=== PATIENT | female | born 1940 | race Caucasian/White ===

== ENCOUNTER 2023-11-07 12:00 | Emergency (ER) | payer SELFPAY ==
[2023-11-07 12:06] VITALS: BP 123/81
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
[2023-11-07] MEDS: ADACEL 0.5 ML IM (13:39)
[2023-11-07 14:00] VITALS: BP 129/76
== END 2023-11-07 14:10 | disposition home or self-care (01) ==
LOC: EMR 12:00
PROVIDERS: EMERGENCY PHYSICIAN Emergency Medicine; FAMILY PHYSICIAN Family Medicine
DX: S80.212A Abrasion, left knee, initial encounter (principal); S60.812A Abrasion of left wrist, initial encounter; V43.52XA Car driver injured in collision with other type car in traffic accident, initial encounter; I48.91 Unspecified atrial fibrillation; Z87.891 Personal history of nicotine dependence; Z79.01 Long term (current) use of anticoagulants; Z23 Encounter for immunization
CPT/HCPCS: 99285; 90471; 70450; 73110; 73564; 90715

== ENCOUNTER 2023-11-09 09:12 | Observation (INO) | payer OTHER, SELFPAY ==
[2023-11-09] VITALS (17 sets, daily range): BP systolic 110–147; BP diastolic 45–91; BMI 32.7; BMI 31.8
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
[2023-11-09] MEDS: DILAUDID 0.5 MG IV ×3 (07:50→20:15)
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
[2023-11-09] MEDS: XOPENEX 0.63 MG INHALANT SOLUTION INH (15:23)
[2023-11-09] MEDS: CARDIZEM CD 180 MG PO (16:04)
[2023-11-09] MEDS: DELTASONE 10 MG PO (16:04)
[2023-11-09] MEDS: LASIX 40 MG PO (16:04)
[2023-11-09] MEDS: FARXIGA 10 MG PO (16:05)
[2023-11-09] MEDS: PROZAC 20 MG PO (16:05)
[2023-11-09] MEDS: XANAX 0.5 MG PO ×2 (16:05→20:11)
[2023-11-09] MEDS: KLOR-CON 20 MEQ PO (16:05)
[2023-11-09] MEDS: XOPENEX 0.63 MG INHALANT SOLUTION 0.630000000000000004 MG INH (16:20)
[2023-11-09] MEDS: BETAPACE 40 MG PO (20:11)
[2023-11-09] MEDS: ELIQUIS 5 MG PO (20:11)
[2023-11-09] MEDS: SYMBICORT 160/4.5 MCG INHALER 2 PUFF INH (20:14)
[2023-11-10] MEDS: DILAUDID 0.5 MG IV ×2 (00:42→06:34)
[2023-11-10 03:53] VITALS: BP 120/65
[2023-11-10 05:06] VITALS: BMI 31.3
--- NOTE | 2023-11-10 07:22 | W.PN.UPDATE ---
Update Note
Progress Note Update
MRI left hip from November 09, 2023 fortunately was able to rule out occult fracture. There was edema within the capsule of the left hip to suggest sprain and inflammation noted within the abductor tendon consistent with tendinitis. Left hip exam
similar to yesterday but less pain. She may progress to weightbearing as tolerated and work with physical therapy. Conservative treatments for pain. Increase activities as tolerated. Follow-up orthopedics 2 weeks to check her progress. We will
sign off for now.
[2023-11-10 07:30] VITALS: BP 99/60
--- NOTE | 2023-11-10 08:19 | W.PN.HOSP.TC ---
Today's Communication/Plan
-
Continue current management. Discharge planning in progress today
Assessment / Plan
Assessment / Plan
Physical exam:
General: Well Developed, Well Nourished and No Apparent Distress
HEENT: Normocephalic, Atraumatic and Moist Mucous Membranes
Respiratory: Clear to Auscultation; Negative Wheezes, Rales or Rhonchi
Cardiac: Regular Rhythm and S1/S2
GI: Soft, Nontender and Nondistended
Musculoskeletal: Tenderness much better in the left hip. No Clubbing, No Cyanosis and No Edema
Neuro: Awake, Alert and Oriented
Psych: Calm
A/P:
Impression:
Left hip pain- left hip capsular sprain with surrounding soft tissue edema.
Left knee contusion
Ambulatory dysfunction
Condition present prior to admission:
Hypertension
Hyperlipidemia
Chronic diastolic CHF
COPD
DIEGO
CKD
History of PE in the past
PLAN:
Continue pain control
Bowel regimen while on narcotics
MRI shows left hip capsular sprain
Reviewed x-rays and CT scan of the pelvis
Appreciated orthopedic consult
PT OT
Eliquis DVT prophylaxis
CODE STATUS full code
Anticipated Discharge: Today
Subjective/Interval History
-
Date of Service: November 10, 2023
Patient left hip pain is better and she wants to go home today. I witnessed her ambulating on the hallway with assistance physical therapy today
Objective Data
-
Labs:
Laboratory Results
11/10/23
07:41
WBC Pending
Hgb Pending
Hct Pending
Plt Count Pending
Sodium Pending
Potassium Pending
Chloride Pending
Carbon Dioxide Pending
BUN Pending
Creatinine Pending
Glucose Pending
Calcium Pending
Vital Signs:
Vital Signs
Temp Pulse Resp BP Pulse Ox
97.8 F 58 18 99/60 96
11/10/23 07:30 11/10/23 07:30 11/10/23 07:30 11/10/23 07:30 11/10/23 07:30
I&O
11/09/23 11/10/23 11/11/23
06:59 06:59 06:59
Intake Total 600 / 600
Output Total 450 / 450
Balance 150 / 150
[2023-11-10] MEDS: SYMBICORT 160/4.5 MCG INHALER 2 PUFF INH (08:30)
[2023-11-10] MEDS: XOPENEX 0.63 MG INHALANT SOLUTION 0.630000000000000004 MG INH (08:30)
[2023-11-10 08:41] LABS: Hematocrit 34.9 % (37.0-47.0); Hemoglobin 10.8 g/dL (12.0-16.0); Mean Corp Hgb Conc. 30.9 g/dL (33.0-37.0); Mean Corpuscular Hgb 26.7 pg (27.0-31.0); Mean Corpuscular Volume 86.4 fL (81.0-99.0); Mean Platelet Volume 11.8 fL (7.4-10.4); Platelet Count 256 10^3/uL (130-400); Red Blood Cell Count 4.04 10^6/uL (4.20-5.40); White Blood Cell Count 7.8 10^3/uL (4.8-10.8)
[2023-11-10 09:24] LABS: Blood Urea Nitrogen 19 mg/dl (7-17); Calcium 8.6 mg/dl (8.4-10.2); Carbon Dioxide 24 mmol/L (22-30); Chloride 104 mmol/L (98-107); Estimated Creatinine Clearance 55 ml/min; Glucose 77 mg/dl (70-99); Potassium 4.6 mmol/L (3.5-5.1); Sodium 133 mmol/L (135-145); eGFR > 60.00
[2023-11-10 09:34] VITALS: BP 100/72
[2023-11-10] MEDS: FARXIGA PO (09:51)
[2023-11-10] MEDS: LASIX PO (09:51)
[2023-11-10] MEDS: BETAPACE PO (09:51)
[2023-11-10] MEDS: CARDIZEM CD PO (09:51)
[2023-11-10] MEDS: PROTONIX 40 MG PO (09:53)
[2023-11-10] MEDS: XANAX 0.5 MG PO (09:53)
[2023-11-10] MEDS: PROZAC 20 MG PO (09:53)
[2023-11-10] MEDS: ELIQUIS 5 MG PO (09:53)
[2023-11-10] MEDS: KLOR-CON 20 MEQ PO (09:53)
[2023-11-10] MEDS: DELTASONE 10 MG PO (09:53)
[2023-11-10 11:34] VITALS: BP 104/65; PULSE 64; O2SAT 94
[2023-11-10 11:45] VITALS: BP 104/65; PULSE 62; O2SAT 94
[2023-11-10] MEDS: BETAPACE 40 MG PO (11:48)
[2023-11-10] MEDS: CARDIZEM CD 180 MG PO (11:48)
[2023-11-10] MEDS: LASIX 40 MG PO (11:48)
[2023-11-10] MEDS: FARXIGA 10 MG PO (11:48)
[2023-11-10] MEDS: NORCO 5/325 1 TABLET PO (11:50)
--- NOTE | 2023-11-10 12:40 | CM ---
Addendum entered by Zahida Freedman 11/10/23 15:40:
CM notified that patient has been switched to observation status, HERBERT reviewed and signed with patient. Patient for discharge today, calling daughter to provide transportation home.
Plan; [facility] with [facility]
Original Note:
Patient seen bedside, initial assessment completed. Patient reports she lives independently at [facility] on the third floor, with an elevator, no steps to enter. Patient reports she just ended services with [facility], per PT, recommending HH, will send
referral to [facility] per patients request. Patient reports she has been to [facility] in past. Patient reports she has a cane, walker, and scooter at home. Patient reports PCP Dr. Matthias Montgomery at [facility], pharmacy is [facility] in
[place]. Patient reports she is being discharged today at 3:00 p.m. and her daughter will be picking her up. CM reviewed IMM with patient, signed, placed in patients chart. CM will continue to follow for discharge planning needs.
Plan; home with [facility].
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
[2023-11-10 15:18] VITALS: BP 129/62
--- NOTE | 2023-11-10 15:32 | VNURNOTE ---
Home Health Liaison spoke with patient at 1530 to discuss [facility] nurse/therapy, visits, schedule and homebound status. Patient is agreeable and understands that visits at home will be 2-3 x per week to assess and teach medical management.
Patient is aware that [facility] will contact them for start of care in 1-2 days after discharge from .
[facility] referral completed in [facility].
== END 2023-11-10 16:28 | disposition home health service (06) ==
LOC: 4 WEST ACU 09:12
PROVIDERS: ADMITTING PHYSICIAN Hospitalist; CONSULT PHYSICIAN Orthopaedic Surgery; EMERGENCY PHYSICIAN Student in an Organized Health Care Education/Training Program; FAMILY PHYSICIAN Internal Medicine
DX: S73.192A Other sprain of left hip, initial encounter (principal); S80.02XA Contusion of left knee, initial encounter; S70.02XA Contusion of left hip, initial encounter; I48.19 Other persistent atrial fibrillation; J44.89 Other specified chronic obstructive pulmonary disease; R42 Dizziness and giddiness; K21.9 Gastro-esophageal reflux disease without esophagitis; R53.1 Weakness; R26.2 Difficulty in walking, not elsewhere classified; G47.33 Obstructive sleep apnea (adult) (pediatric); I50.32 Chronic diastolic (congestive) heart failure; I11.0 Hypertensive heart disease with heart failure; E78.5 Hyperlipidemia, unspecified; E11.22 Type 2 diabetes mellitus with diabetic chronic kidney disease; V49.49XA Driver injured in collision with other motor vehicles in traffic accident, initial encounter; Y93.89 Activity, other specified; Y92.410 Unspecified street and highway as the place of occurrence of the external cause; Z79.84 Long term (current) use of oral hypoglycemic drugs; Z87.11 Personal history of peptic ulcer disease; Z87.19 Personal history of other diseases of the digestive system; Z87.891 Personal history of nicotine dependence; Z79.01 Long term (current) use of anticoagulants; Z79.51 Long term (current) use of inhaled steroids; Z79.52 Long term (current) use of systemic steroids; Z88.7 Allergy status to serum and vaccine; Z88.8 Allergy status to other drugs, medicaments and biological substances; Z98.84 Bariatric surgery status; Z86.711 Personal history of pulmonary embolism; Z88.6 Allergy status to analgesic agent
CPT/HCPCS: 72192; 73502; 73721; 80048; 85027; 94640; 96374; 97162; 97166; 97535; 99285; G0378

== ENCOUNTER 2023-11-25 16:02 | Emergency (ER) | payer OTHER, SELFPAY ==
[2023-11-25 16:04] VITALS: BP 144/95
--- NOTE | 2023-11-25 17:39 | ED.MUSCINJ ---
HPI-Injury
General
Chief Complaint: Musculo-Skeletal Complaint
Source: patient
Exam Limitations: none
Time Seen by Provider: 11/25/23 17:24
Nursing documentation reviewed up to this point in time: agreed with
Travel History
Have you had any contact with someone who has COVID-19?: No
Do you have any symptoms of coronavirus? Fever > 100 degrees, chills, cough, shortness of breath, sore throat, loss of taste or smell, muscle aches, or headache?: No
History of Present Illness-Injury
Initial Injury comments:
83-year-old female with history of headaches, neck pain, back pain, COPD, A-fib on Eliquis, CHF, gastric bypass, hearing and vision impaired, iron deficiency anemia presents stating she has had increasing right shoulder pain over the past few days.
She states she cannot take the pain anymore. She had a left over oxycodone that she took and it did not touch the pain. She does not recall any overuse or injury.
Past History
Past History
ED Past Medical History: Arrthythmia, Asthma, CHF, COPD, GERD, NIDDM and Other (Sleep apnea, polyps, peptic ulcer disease, Thakkar's esophagitis, diverticulosis)
ED Past Surgical History: Appendectomy, Gynecological (Right Oophorectomy with tube) and Other (Gastric bypass)
Social History
Tobacco: Former smoker
Alcohol: None
Drug: None
Personal:
Living: alone
Family History
Family History: Other (Mother with previous pleurisy)
Review of Systems
Review of Systems
Allergies reviewed?: Yes
All Other Systems: ROS reviewed and negative except as documented in HPI and ROS
Constitutional: Denies fever
Musculoskeletal: Reports other (Pain right shoulder, very limited ROM)
Skin: Reports no symptoms
Neurological: Denies weakness or numbness
Phy Exam
Physical Exam
Physical Exam:
GENERAL: No acute distress. A&Ox3.
CONSTITUTIONAL: Afebrile.
EYES: PERRL, conjunctivae normal
Neck: Supple
RESPIRATORY: Regular respirations, nonlabored, lungs clear.
CARDIOVASCULAR: Regular rate and rhythm, no murmurs, no rubs.
GI: Soft, nontender, normal BS
MUSCULOSKELETAL: No cervical bony or soft tissue tenderness. Exquisitely tender to palpate anterior aspect of proximal right humerus moves with ease. Well perfused. Distal neurovascular intact.
SKIN: Warm, dry, pink
PSYCH: Normal mood and affect. Well kept, interactive and appropriate
NEUROLOGIC: Awake, alert and oriented. No focal neurological deficits
Injury Course
Orders/Labs/Results
Orders:
Orders
11/25/23 17:57
CR Shoulder, Trauma - Right Urgent
Comment:
Reason For Exam: pain
11/25/23 19:02
Sling Right-Treatment ONCE
Hydrocodone 5/APAP 325 [[place] 5/325] 2 tablet PO NOW STA
11/25/23 19:03
Dexamethasone [Decadron] 10 mg PO NOW STA
MDM/Problems Addressed
Differential Diagnosis Includes:
bursitis, osteoarthritis, sprain
MDM/Problems Addressed:
83-year-old female with history of headaches, neck pain, back pain, COPD, A-fib on Eliquis, CHF, gastric bypass, hearing and vision impaired, iron deficiency anemia presents stating she has had increasing right shoulder pain over the past few days.
She states she cannot take the pain anymore. She had a left over oxycodone that she took and it did not touch the pain. She does not recall any overuse or injury.
Right shoulder x-ray initially read by this examiner, no acute abnormality noted.
I will treat her for bursitis of the shoulder, she has an orthopedic doctor that she will follow-up with
She has an appointment with her PCP scheduled for Tuesday (2 days).
I gave her Decadron for the inflammation, she is being weaned off prednisone by her pedicurist, so I will not prescribe any further prednisone
Prescription for Vicodin sent to her pharmacy
She will follow-up with her PCP and orthopedic next week.
Sling applied and states this relieves some of the pain
She has help at home.
*Critical Care Note
Total Time (30-74mins, 75-104mins- exclusive of procedures): Not Applicable
ED Attending Note
-
Portions of this chart may have been created with voice recognition software.� Occasional wrong word or��sound alike� substitutions may have occurred due to the inherent limitations of voice recognition software.
Discharge Plan
Departure
Patient Disposition: Home (Routine Discharge)
Date of Disposition: 11/25/23
Time of Disposition: 19:16
Patient with high blood pressure during this ER visit?: No
Condition: Good
Discharge Problem:
Acute bursitis of right shoulder
Instructions: Shoulder Bursitis (DC)
Prescriptions:
New
hydrocodone-acetaminophen 5-325 mg tablet
1 tab PO Q6H PRN (Reason: Pain) Qty: 10 0RF
No Action
multivitamin Tablet
1 tab PO DAILY
prednisone 10 mg Tablet
10 mg PO DAILY
fluticasone furoate-vilanterol [Breo Ellipta] 200-25 mcg/dose Blister With Device
1 inh INHALATION R DAILY
levalbuterol tartrate [Xopenex HFA] 45 mcg/actuation Hfa Aerosol Inhaler
1 puff INHALATION R Q6HPRN PRN (Reason: sob)
esomeprazole magnesium [Nexium] 40 mg Capsule,Delayed Release(Dr/Ec)
40 mg PO DAILY
dapagliflozin propanediol [Farxiga] 10 mg Tablet
10 mg PO DAILY
alprazolam 0.5 mg Tablet
0.5 mg PO BID
diltiazem HCl 180 mg Capsule,Extended Release 24 Hr
180 mg PO DAILY
budesonide 0.5 mg/2 mL Suspension For Nebulization
0.5 mg INHALATION R BID
fluoxetine [Prozac] 20 mg Capsule
20 mg PO DAILY
furosemide 40 mg tablet
40 mg PO DAILY
levalbuterol HCl 0.63 mg/3 mL solution for nebulization
0.63 mg INHALATION R BID
sotalol 80 mg tablet
40 mg PO BID
potassium chloride 20 mEq packet
20 meq PO DAILY
Eliquis 5 MG tablet
5 mg PO BID
polyethylene glycol 3350 [HealthyLax] 17 gram Powder In Packet
17 g PO DAILY Qty: 14 0RF
acetaminophen-codeine 300-30 mg Tablet
1 tab PO Q4HPRN PRN (Reason: moderate pain) Qty: 15 0RF
Referrals:
Elliot Mazariegos MD [Active] - Next open appointment
Matthias Montgomery MD [Family Provider] -
Activity Restrictions/Additional Instructions:
As we discussed, wear the sling for 1 or 2 days until the Decadron kicks in. You were given Decadron 10 mg, a steroid here today.
Keep your appointment with your primary doctor on Tuesday. If your primary doctor thinks you will benefit from an injection and is not able to do it, call your orthopedic doctor for evaluation.
I sent a prescription to your pharmacy for Vicodin to take as needed for significant pain
Heating pad may help
Interventions
Interventions:
*Risk Screen - Suicide Last Done: 11/25/23 17:59
*General Assessment Last Done: 11/25/23 17:59
*Neglect/Abuse Screening Last Done: 11/25/23 17:59
ED- Fall Risk Assessment Last Done: 11/25/23 17:59
*ED COVID-19 Vaccine History Last Done: 11/25/23 17:59
*Nursing Disposition Last Done: 11/25/23 19:49
ED-Musculoskeletal Assessment Last Done: 11/25/23 17:59
Discharge Date and Time
Discharge Date/Time: 11/25/23 19:50
Print Language: SENEGALESE
[2023-11-25 17:59] VITALS: BMI 31.9
[2023-11-25] MEDS: NORCO 5/325 2 TABLET PO (19:13)
[2023-11-25] MEDS: DECADRON 10 MG PO (19:13)
== END 2023-11-25 19:50 | disposition home or self-care (01) ==
LOC: EMR 16:02
PROVIDERS: EMERGENCY PHYSICIAN Emergency Medicine; FAMILY PHYSICIAN Family Medicine
DX: M75.51 Bursitis of right shoulder (principal); I48.91 Unspecified atrial fibrillation; I50.9 Heart failure, unspecified; J44.9 Chronic obstructive pulmonary disease, unspecified; Z79.01 Long term (current) use of anticoagulants; Z87.891 Personal history of nicotine dependence
CPT/HCPCS: 99283; 73030

== ENCOUNTER → 2023-12-06 14:13 | Outpatient (REF) | payer OTHER, SELFPAY | LOC: HWRAD 14:13 | PROVIDERS: ATTENDING PHYSICIAN Orthopaedic Surgery; FAMILY PHYSICIAN Family Medicine | DX: M25.512 Pain in left shoulder (principal) | CPT/HCPCS: 73200 ==

== ENCOUNTER 2024-01-27 08:08 | Inpatient (IN) | payer OTHER, SELFPAY ==
--- NOTE | 2024-01-06 14:35 | CM ---
Addendum entered by Shea Garcia 01/27/24 08:46:
Correction to below: will make VN referral for OT, SN and CERTIFIED ALCOHOL AND DRUG COUNSELOR.
Addendum entered by Shea Garcia 01/23/24 09:23:
Spoke again with patient. She states that her son is coming from [place] and will be staying with her for a few days after surgery. She will likely benefit from VN services; will make referral for SN, PT and CERTIFIED ALCOHOL AND DRUG COUNSELOR.
Original Note:
Patient is scheduled for an elective L TSA on 01/27/24. Spoke with patient prior to surgery. Introduced role of Orthopedic Navigator. Patient reports that she lives alone in one level apartment. No steps to access Building with elevator to
apartment. Currently she functions independently. She uses scooter for outside long trips. She has rollator, rolling walker, cane, shower chair, shower grab bars in shower stall. SHe finished up with [facility] RN and PT this week of January 02, 2024.
PCP is Dr. Julio.
Discussed orthopedic program and post surgical plans. Reviewed anticipated length of stay and assistance that she may need at discharge. Explained that goal is for her to return home at discharge. Also reviewed MD follow up and transition to
outpatient therapy. Patient is in agreement with tentative plan and states that she will ask friends to get her home and settled and check on her next few days. IF home care needed she would want to use [facility].
Patient will need to use IPAD during PAT appt to complete online education.
Plan: Orthopedic Navigator will be involved in the care of patient after surgery and will reassess discharge needs at that time.
[2024-01-11 13:25] VITALS: BMI 33.6
[2024-01-11 13:56] LABS: Hematocrit 37.9 % (37.0-47.0); Hemoglobin 12.1 g/dL (12.0-16.0); Mean Corp Hgb Conc. 31.9 g/dL (33.0-37.0); Mean Corpuscular Hgb 27.8 pg (27.0-31.0); Mean Corpuscular Volume 87.1 fL (81.0-99.0); Mean Platelet Volume 11.5 fL (7.4-10.4); Platelet Count 282 10^3/uL (130-400); Red Blood Cell Count 4.35 10^6/uL (4.20-5.40); Red Cell Dist. Width 17.7 % (11.5-14.5); White Blood Cell Count 5.9 10^3/uL (4.8-10.8)
[2024-01-11 14:31] LABS: ALT (SGPT) < 10 U/L (0-35); AST (SGOT) 27 U/L (14-36); Albumin 3.8 g/dl (3.5-5.0); Alkaline Phosphatase 73 U/L (38-126); Blood Urea Nitrogen 16 mg/dl (7-17); Calcium 9.6 mg/dl (8.4-10.2); Carbon Dioxide 25 mmol/L (22-30); Chloride 104 mmol/L (98-107); Estimated Creatinine Clearance 46 ml/min; Glucose 86 mg/dl (70-99); Potassium 4.2 mmol/L (3.5-5.1); Sodium 138 mmol/L (135-145); Total Bilirubin 0.4 mg/dl (0.2-1.3); Total Protein 6.7 g/dl (6.3-8.2); eGFR > 60.00
--- NOTE | 2024-01-11 15:09 | HPS.HSE ---
Family Physician
-
Family Physician: Matthias Montgomery
Chief Complaint
-
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
History of Present Illness
The patient is an 82-year-old female presenting today for advanced primary osteoarthritis of the left shoulder with underlying proximal humerus fracture. Her humerus fracture occurred 2 years ago after a mechanical fall at her grandson's
baseball game. The patient reports significant left shoulder pain and instability secondary to this diagnosis. She notes that her current left shoulder symptoms are greatly interfering with her activities of daily living and are overall impacting
her quality of life. She has tried and failed multiple conservative treatment measures in the past for her left shoulder symptoms. These conservative treatment measures include activity modification, self-directed therapeutic exercises,
corticosteroid injections, medical management with Tylenol, Prednisone, and Inverness as needed, and the application of ice and/or heat. Recent CT scan findings of the left shoulder demonstrated overlapping fracture fragments of the previously described
comminuted and impacted left humerus head/neck fracture with callus formation and with a chronic inferior displacement of the humeral head with regard to the glenoid. She was determined to be in need of a left reverse total shoulder arthroplasty.
She denies any current complaints today such as chest pain, shortness of breath, palpitations, nausea, vomiting, diarrhea, lightheadedness, dizziness, cough, sore throat, or fever.
Medical History
Past Medical History
Past Medical History: Reports Other
Additional Past Medical History:
1. Left proximal humerus fracture.
2. Osteoarthritis, status post left total knee arthroplasty, 08/2020, by Dr. Elliot Mazariegos.
3. Hypertension.
4. Hyperlipidemia.
5. Non-obstructive coronary artery disease.
6. Persistent atrial fibrillation, status post cardioversion, 04/2022, and ablation 10/2022; pharmacological therapy with Sotalol, oral anticoagulation with Eliquis.
7. PACs, asymptomatic.
8. Congestive heart failure, preserved ejection fraction.
9. Mild mitral regurgitation.
10. COPD with asthmatic component.
11. Obstructive sleep apnea, noncompliant with CPAP.
12. Pulmonary embolism of bilateral lungs, 03/2021, on chronic anticoagulation with Eliquis.
13. Chronic dyspnea, multifactorial.
14. GERD.
15. Thakkar's esophagus.
16. Hiatal hernia.
17. Peptic ulcer disease per records.
18. Colon polyps.
19. Diverticulosis.
20. Hemorrhoids.
21. Fatty liver disease.
22. Irritable bowel syndrome.
23. Multilevel degenerative disc disease.
24. Fibromyalgia.
25. Right thyroid nodule, likely benign.
26. History of iron deficiency anemia; pre-operative hemoglobin stable.
27. Precancerous tongue mass, status post remote excision.
28. Basal cell carcinoma, status post excision.
29. Squamous cell carcinoma, status post excision.
30. Right breast melanoma per records.
31. Macular degeneration.
32. Anxiety.
33. COVID-19, 11/2021, without residual side effects.
34. Osteopenia.
35. Insomnia.
36. MRSA positive nasal swab 01/11/2024.
37. Obesity, BMI 33.5; status post gastric bypass.
38. Remote history of tobacco abuse.
Past Surgical History: Reports Other
Additional Past Surgical History:
1. Left total knee arthroplasty, 08/2020, by Dr. Elliot Mazariegos.
2. Right ankle fracture repair.
3. Excision of precancerous tongue mass.
4. Appendectomy.
5. Multiple right inguinal hernia repairs.
6. Incisional hernia repair.
7. Cardioversion.
8. Atrial fibrillation ablation.
9. Gastric bypass.
10. Cardiac catheterization.
11. Ectopic .
12. D&E.
13. Bowel resection due to obstruction.
14. Multiple skin cancer excisions.
15. Left breast biopsy.
16. Right eye surgery.
17. Multiple colonoscopies.
18. Multiple endoscopies.
Social History
Tobacco: Former Smoker (She is a former 1 pack per week cigarette smoker who quit tobacco products altogether 33 years ago.)
Alcohol: None
Living: Alone (The patient lives in a 3rd floor apartment at [facility]. She notes that [facility] does have an elevator. )
Family History
Family History: Not pertinent
Allergies / Home Medications
Allergy/Medication List:
Home medications:
1. Levalbuterol HCl 0.63 mg inhaled twice a day.
2. Xopenex HFA inhaler 1 puff every 6 hours as needed.
3. Cholecalciferol 25 mcg p.o. daily.
4. Eliquis 5 mg p.o. twice a day.
5. Fluoxetine 20 mg p.o. daily.
6. Budesonide 0.5 mg p.o. twice a day.
7. Furosemide 40 mg p.o. daily.
8. Acetaminophen 1000 mg p.o. every 6 hours as needed.
9. Hydrocodone-acetaminophen 5-325 mg, 1 tablet every 6 hours as needed.
10. Nexium 40 mg p.o. daily.
11. Multivitamin 1 tab p.o. daily.
12. Alprazolam 0.5 mg p.o. twice a day.
13. Sotalol 80 mg p.o. twice a day.
14. Farxiga 10 mg p.o. daily.
15. Diltiazem 180 mg p.o. daily.
16. Potassium chloride 20 meq p.o. daily.
ALLERGIES: Bupropion. Celebrex. Venofer. Influenza vaccine.
Review of Systems
-
A 12 point ROS was completed and negative except as noted: Yes
Physical Exam
Vital Signs
Blood pressure 135/65. Heart rate 60. Respirations 18. Pulse ox 97%.
Height 5 feet, 1 inch. Weight 80.5 kg. BMI 33.5.
Physical Exam
General: Well Developed, Well Nourished and No Apparent Distress
HEENT: NormoCephalic, Moist mucous membranes, Atraumatic and PERRLA
Respiratory: Clear
Cardiac: Regular Rhythm
GI: Soft, Non Tender, Non Distended and Other (Obese. )
Musculoskeletal: Other (Left shoulder: active elevation 30. External rotation 0. Internal rotation to greater trochanter. Global rotator cuff weakness. Right shoulder: Relatively normal exam. )
Skin: Warm and Dry
Neuro: AO x 3 and Nonfocal/grossly intact
Laboratory Results
-
01/11/24 13:20
01/11/24 13:20
Laboratory Results
Total Bilirubin 0.4 mg/dl (0.2-1.3) 01/11/24 13:20
AST 27 U/L (14-36) 01/11/24 13:20
ALT < 10 U/L (0-35) 01/11/24 13:20
Alkaline Phosphatase 73 U/L (38-126) 01/11/24 13:20
Hemoglobin A1c 4.9.
MRSA nasal screen positive; the patient was started on nasal Mupirocin ointment pre-operatively.
EKG provided by Cardiology.
Echocardiogram 06/13/2023: Normal left ventricular size and systolic function. Mild concentric left ventricular hypertrophy. Normal right ventricular systolic function. No significant valvular disease. Compared to the previous echo of 03/30/22,
there is no significant change.
Nuclear stress test 06/30/2021 - Normal perfusion imaging. Negative EKG for ischemia. Ejection fraction is 64%. This is a moderate risk study due to pharmacological agent used. Compared to the prior study of 05/20/2008, perfusion is now normal.
Impression/Plan
-
CLEARANCES:
1. Primary Medical, Dr. Kina Torres - waived after discussion with surgeon.
2. Cardiology, Dr. Denver Aviles - cleared.
3. Pulmonary, Dr. Russ Torres - cleared.
4. Dental - pending.
IMPRESSION/PLAN:
1. 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 Waqas Garcia on 01/27/2024. The benefits and risks of the procedure have been explained to the patient. The patient understands these
risks and wishes to proceed.
2. DVT prophylaxis: Eliquis at modified dosing with bilateral venous compression devices. She was made aware to hold her Eliquis three days prior to her upcoming procedure. We will resume her home dosing of Eliquis on post-operative day 3 as long as
she remains hemodynamically stable. Plasma flow devices were highly encouraged to be used in the outpatient setting upon discharge due to her previous history of pulmonary embolism.
3. Iron deficiency anemia: Her hemoglobin will be monitored closely during admission.
4. Persistent atrial fibrillation: The patient will be monitored on telemetry post-operatively. She will continue her home Sotalol without interruption.
5. Pain management: We will utilize Inverness as needed for moderate to severe post-operative pain. We will also include a Prednisone taper. Pain medications will be adjusted if indicated due to her history of fibromyalgia.
6. Pre-operative MRSA positive nasal swab: We will include IV Vancomycin in addition to IV Ancef sophia-operatively. She was started on nasal Mupirocin pre-operatively. She should be advised to continue this for 2 weeks post-surgery as her incision is
healing.
Patient's phone number: [phone].
Patient's contact (Della Wisdom - Daughter): [phone].
[2024-01-12 08:49] LABS: Glycohemoglobin (HgbA1c) 4.9 % (4.0-5.6)
[2024-01-23 10:06] VITALS: BMI 33.6
--- NOTE | 2024-01-23 12:48 | VNURNOTE ---
Home Health Liaison reviewed chart and called patient this am to discuss plan for upcoming surgery.
Patient is no longer on services w[facility]. Confirmed w/housekeeping supervisor that [facility] is unable to provide [employer] for daily showers this week prior to surgery.
Patient will need assistance with showering 3 evenings and morning prior to surgery according to pre op instructions she reviewed.
Liaison asked patient if her daughter would be able to assist her and patient stated that her daughter can not help.
Call to patients daughter Della and message left, call was returned now with long discussion regarding plan.
Della stated that she is frustrated because her mother made this decision to have surgery without consulting anyone in family for assistance.
Della is only able to help her mother minimally this week as she works FT and has her own appointments.
Patient was called back with phone number for [employer], a company to possibly assist with hiring private aide.
The patient is aware that she will need to call and make arrangements for hiring an aide and that no one will be 'set up' for her thru [facility].
The patient verbalized understanding and will call number provided, she will also speak to her daughter regarding arrangements.
[2024-01-27] VITALS (12 sets, daily range): BP systolic 89–125; BP diastolic 41–82; PULSE 74; O2SAT 100; BMI 30.8
[2024-01-27] MEDS: NORMOSOL-R 1000 IV ×2 (09:15→12:28)
[2024-01-27] MEDS: VANCOCIN 200 IV ×2 (09:15→20:50)
--- NOTE | 2024-01-27 09:47 | CM ---
Reviewed chart. Patient admitted as planned for elective L Reverse TSA. The discharge plan is for patient to return home at discharge. Her son will be staying with her initially. She will benefit from [facility] services and selects [facility] (she recently had
services through them). Reviewed start of care (tentatively 01/28), services to be ordered (OT, SN, [facility]) and frequency/duration of services.
Patient will use [facility] pharmacy for discharge prescriptions.
VN referral was completed and sent to [facility] through [email or web address] with request for start of care on 01/28. Confirmation received of their ability to accept referral. locomotive lubricating systems clerk to fax discharge instructions to [facility] when complete.
--- NOTE | 2024-01-27 13:22 | PTCARENOTE ---
Patient received from PACU in bed; IVF infusing; Surgical site assessed, left shoulder aquacell clean/dry/intact; Sling to left upper extremity; Left radial pulse +2, patient does not have sensation to left upper extremity at this time, skin is
pink, capillary refill <3 seconds; Patient oriented to room and unit; Call willett within reach; Bed in lowest position, wheels locked; Assessment ongoing
[2024-01-27] MEDS: XOPENEX 0.63 MG INHALANT SOLUTION 0.630000000000000004 MG INH (13:28)
[2024-01-27] MEDS: PULMICORT 0.5 MG INH (13:28)
[2024-01-27] MEDS: XANAX PO (13:45)
[2024-01-27] MEDS: ELIQUIS PO (13:45)
[2024-01-27] MEDS: BETAPACE PO ×2 (13:45→20:55)
[2024-01-27] MEDS: PROTONIX 40 MG PO (13:56)
[2024-01-27] MEDS: PROZAC 20 MG PO (13:56)
[2024-01-27] MEDS: VITAMIN D3 (cholecalciferol) 25 MCG PO (13:56)
[2024-01-27] MEDS: FARXIGA 10 MG PO (13:56)
[2024-01-27] MEDS: DELTASONE 40 MG PO (13:56)
[2024-01-27] MEDS: CARDIZEM CD 180 MG PO (13:58)
[2024-01-27] MEDS: LASIX 40 MG PO (13:59)
[2024-01-27] MEDS: KLOR-CON 20 MEQ PO (14:00)
[2024-01-27] MEDS: ANCEF 5 IV (17:19)
[2024-01-27] MEDS: PULMICORT INH (18:06)
[2024-01-27] MEDS: XOPENEX 0.63 MG INHALANT SOLUTION INH (18:06)
[2024-01-27] MEDS: SENOKOT 17.1999999999999993 MG PO (20:21)
[2024-01-27] MEDS: BACTROBAN 2% OINTMENT 1 APPLIC NASAL (20:21)
[2024-01-27] MEDS: ELIQUIS 2.5 MG PO (20:22)
[2024-01-27] MEDS: XANAX 0.5 MG PO (20:23)
[2024-01-27] MEDS: COLACE 100 MG PO (20:23)
[2024-01-28] MEDS: ANCEF 5 IV (01:30)
[2024-01-28 03:36] VITALS: BP 108/53
[2024-01-28 06:00] VITALS: BMI 31.9
[2024-01-28 07:08] VITALS: BP 109/60
[2024-01-28] MEDS: PULMICORT 0.5 MG INH (07:52)
[2024-01-28] MEDS: XOPENEX 0.63 MG INHALANT SOLUTION 0.630000000000000004 MG INH (07:52)
[2024-01-28] MEDS: PROZAC 20 MG PO (08:32)
[2024-01-28] MEDS: KLOR-CON 20 MEQ PO (08:32)
[2024-01-28] MEDS: BACTROBAN 2% OINTMENT 1 APPLIC NASAL (08:32)
[2024-01-28] MEDS: FARXIGA 10 MG PO (08:33)
[2024-01-28] MEDS: LASIX 40 MG PO (08:33)
[2024-01-28] MEDS: CARDIZEM CD PO ×2 (08:33→08:54)
[2024-01-28] MEDS: DELTASONE 40 MG PO (08:33)
[2024-01-28] MEDS: PROTONIX 40 MG PO (08:33)
[2024-01-28] MEDS: COLACE 100 MG PO (08:33)
[2024-01-28] MEDS: BETAPACE PO (08:33)
[2024-01-28] MEDS: SENOKOT 17.1999999999999993 MG PO (08:34)
[2024-01-28] MEDS: XANAX 0.5 MG PO (08:34)
[2024-01-28] MEDS: VITAMIN D3 (cholecalciferol) 25 MCG PO (08:34)
[2024-01-28] MEDS: NORCO 5/325 2 TABLET PO (08:37)
[2024-01-28] MEDS: ELIQUIS 2.5 MG PO (08:40)
--- NOTE | 2024-01-28 08:42 | W.PN.ORTHO ---
Today's Communication / Plan
-
83yo female POD#1 left reverse TSA under the direction of Dr. Garcia
-NWB left arm
-Maintain sling at all times x2 weeks
-Pain Control and ice as needed
-PT/OT
-Aquacel dressing to remain in place until postop appointment. Patient may shower and get the bandage wet.
-Eliquis 2.5mg BID until POD#3, then resume normal home dose of Eliquis 5mg BID
-Will require mupirocin ointment x2 weeks due to positive MRSA swab
-Medications sent to pharmacy via [facility] (hydrocodone, eliquis 2.5mg, mupirocin, prednisone taper).
-Follow up outpatient in 2 weeks
-Stable for discharge home today
Assessment
.
Distal Motor Intact: Yes
Dressing:
Clean, dry and intact.
Plan
.
Surgery / Date: Left reverse TSA 01/27/24 Dr. Garcia
DVT Prophylaxis: Other (Eliquis)
Activity:
Out of bed.
PT/OT
Discharge Plan: Home
Subjective
.
.:
Patient sitting up on the side of the bed. She reports that she is starting to feel pain in the left shoulder. She is wearing her sling.
Vital Signs and Labs
.
Vital Signs and Labs:
Lab Results
01/11/24 13:20
01/11/24 13:20
Temp Pulse Resp BP Pulse Ox
97.9 F 79 97 109/60 96
01/28/24 07:08 01/28/24 08:00 01/28/24 08:00 01/28/24 07:08 01/28/24 07:08
Non-invasive Hgb result: 11.8
Physical Exam
-
LUE: Aquacel dressing in place. This is clean, dry, and intact. Sling to left arm. Mild edema and ecchymosis. Mild tenderness to palpation. Full ROM of hand and wrist. Sensation intact to light touch. Cap refill <2secs
[2024-01-28] MEDS: BETAPACE 80 MG PO (08:45)
--- NOTE | 2024-01-28 09:48 | W.DS.TRANS ---
DC Summary - [employer]
-
Discharge Instructions:
Discharge Diagnosis/Procedures status post left reverse total shoulder
arthroplasty
Diet No restrictions
Activity Other activity
Additional Activity Wear sling on left arm at all times, removing
only to shower and dress.
Driving Restrictions Not until seen by your Dr
Bathing Restrictions OK to Shower
Wound Care Leave dressing in place until post op appt in 2
weeks. You may shower and get dressing wet.
Instructions:
Stand-Alone Forms: Total Shoulder Replacement D/C
Changes to Home Medications: No
Discharge Medications:
DC Medications w/original date entered in [facility]
multivitamin 1 tab PO DAILY Supplement 11/09/22
dapagliflozin propanediol 10 mg tablet (Farxiga) 10 mg PO DAILY 06/12/23
esomeprazole magnesium 40 mg capsule,delayed release (Nexium) 40 mg PO DAILY GERD 06/12/23
levalbuterol tartrate 45 mcg/actuation aerosol inhaler (Xopenex HFA) 1 puff inhalation R Q6HPRN PRN sob 06/12/23
apixaban 5 mg tablet (Eliquis) 5 mg PO BID Blood Clot Prevention/Tx 11/09/23
budesonide 0.5 mg/2 mL suspension for nebulization 0.5 mg inhalation R BID Lung/Breathing Issues 11/09/23
diltiazem HCl 180 mg capsule,24 hr,extended release 180 mg PO DAILY Arrhythmia 11/09/23
fluoxetine 20 mg capsule (Prozac) 20 mg PO DAILY Mental Health/Anxiety 11/09/23
furosemide 40 mg tablet 40 mg PO DAILY Fluid Retention/Swelling 11/09/23
levalbuterol HCl 0.63 mg/3 mL solution for nebulization 0.63 mg inhalation R BID Lung/Breathing Issues 11/09/23
potassium chloride 20 mEq oral packet 20 meq PO DAILY Electrolyte Repletion 11/09/23
hydrocodone 5 mg-acetaminophen 325 mg tablet 1 tab PO Q6H PRN Pain #10 tabs 11/25/23
acetaminophen 500 mg tablet 1,000 mg PO Q6H PRN PAIN 01/10/24
cholecalciferol (vitamin D3) 25 mcg (1,000 unit) tablet (Vitamin D3) 25 mcg PO DAILY 01/10/24
sotalol 80 mg tablet 80 mg PO BID 01/10/24
mupirocin 2 % topical ointment 1 applic intranasal BID #1 tube 01/11/24
Home Medication Changes
Pending Results: No
--- NOTE | 2024-01-28 09:48 | W.DCSUMMARY ---
Discharge Summary
Discharge Data
Date of Admission: 01/27/24
Date of Discharge: 01/28/24
-
Pending Results: No
Hospital Course
83 year old female presents to the hospital for left reverse total shoulder arthroplasty on 01/27/[address] Garcia. She was admitted overnight for pain control. On postoperative day one, her pain was well controlled. She was able to work with
occupational therapy. She was medically stable for discharge to home. She will follow up on an outpatient basis two weeks after discharge.
Discharge Plan
-
Patient Disposition: Home (Routine Discharge)
Discharge Diagnosis/Procedures: status post left reverse total shoulder arthroplasty
Condition: Good
Diet: No restrictions
Activity: Other activity
Additional Activity: Wear sling on left arm at all times, removing only to shower and dress.
Driving Restrictions: Not until seen by your Dr
Bathing Restrictions: OK to Shower
Wound Care: Leave dressing in place until post op appt in 2 weeks. You may shower and get dressing wet.
Stand Alone Forms: Total Shoulder Replacement D/C
Referrals:
[facility] [Outside] - in one day (Occupational therapy, nursing and home health aid)
Waqas Garcia MD [Active] - in two weeks
Matthias Montgomery MD [Family Provider] - (patient sees Dr. Julio in this practice.)
Prescriptions:
New
mupirocin 2 % ointment
1 applic intranasal BID Qty: 1 0RF
Patient Comments:
started Tuesday morning 01/23/24
alprazolam 0.5 mg Tablet
0.5 mg PO BID Qty: 0 0RF
Eliquis 2.5 mg Tablet
2.5 mg PO BID 2 Days Qty: 0 0RF
docusate sodium 100 mg Capsule
100 mg PO BID Qty: 0 0RF
mupirocin 2 % Ointment
1 applic intranasal BID 14 Days Qty: 0 0RF
prednisone 20 mg Tablet
40 mg PO DAILY Qty: 0 0RF
sennosides [Senna Laxative] 8.6 mg Tablet
17.2 mg PO BID Qty: 0 0RF
Continued
multivitamin Tablet
1 tab PO DAILY
levalbuterol tartrate [Xopenex HFA] 45 mcg/actuation Hfa Aerosol Inhaler
1 puff INHALATION R Q6HPRN PRN (Reason: sob)
esomeprazole magnesium [Nexium] 40 mg Capsule,Delayed Release(Dr/Ec)
40 mg PO DAILY
dapagliflozin propanediol [Farxiga] 10 mg Tablet
10 mg PO DAILY
diltiazem HCl 180 mg Capsule,Extended Release 24 Hr
180 mg PO DAILY
budesonide 0.5 mg/2 mL Suspension For Nebulization
0.5 mg INHALATION R BID
fluoxetine [Prozac] 20 mg Capsule
20 mg PO DAILY
furosemide 40 mg tablet
40 mg PO DAILY
levalbuterol HCl 0.63 mg/3 mL solution for nebulization
0.63 mg INHALATION R BID
potassium chloride 20 mEq packet
20 meq PO DAILY
hydrocodone-acetaminophen 5-325 mg tablet
1 tab PO Q6H PRN (Reason: Pain) Qty: 10 0RF
sotalol 80 mg Tablet
80 mg PO BID
cholecalciferol (vitamin D3) [Vitamin D3] 25 mcg (1,000 unit) Tablet
25 mcg PO DAILY
Discontinued
Eliquis 5 MG tablet
5 mg PO BID
acetaminophen 500 mg Tablet
1,000 mg PO Q6H PRN (Reason: PAIN)
Discharge Date and Time
Print Language: WELSH
--- NOTE | 2024-01-28 10:45 | CM ---
Patient seen at bedside with physician. Patient states that she will go home with her daughters and both are also present. Patient accepting of [facility] and [facility] reviewed and signed form placed on chart. CM will continue to follow for discharge planning
needs.
Plan; home with [facility] to follow
== END 2024-01-28 11:05 | disposition home health service (06) | DRG 483 ==
LOC: 2 SOUTH 08:08
PROVIDERS: ADMITTING PHYSICIAN Specialist; FAMILY PHYSICIAN Family Medicine
PROC: 0RRK00Z Replacement of Left Shoulder Joint with Reverse Ball and Socket Synthetic Substitute, Open Approach (ICD-10-PCS; 2024-01-27)
PROC: 0LS40ZZ Reposition Left Upper Arm Tendon, Open Approach (ICD-10-PCS; 2024-01-27)
DX: M19.012 Primary osteoarthritis, left shoulder (principal); S42.202P Unspecified fracture of upper end of left humerus, subsequent encounter for fracture with malunion; I50.32 Chronic diastolic (congestive) heart failure; W19.XXXD Unspecified fall, subsequent encounter; I11.0 Hypertensive heart disease with heart failure; I25.10 Atherosclerotic heart disease of native coronary artery without angina pectoris; E78.5 Hyperlipidemia, unspecified; J44.89 Other specified chronic obstructive pulmonary disease; I34.0 Nonrheumatic mitral (valve) insufficiency; G47.33 Obstructive sleep apnea (adult) (pediatric); K76.0 Fatty (change of) liver, not elsewhere classified; M79.7 Fibromyalgia; E66.9 Obesity, unspecified; E04.1 Nontoxic single thyroid nodule; M85.80 Other specified disorders of bone density and structure, unspecified site; D50.9 Iron deficiency anemia, unspecified; G47.00 Insomnia, unspecified; K21.9 Gastro-esophageal reflux disease without esophagitis; K22.70 Barrett's esophagus without dysplasia; K44.9 Diaphragmatic hernia without obstruction or gangrene; H35.30 Unspecified macular degeneration; F41.9 Anxiety disorder, unspecified; Z96.652 Presence of left artificial knee joint; Z91.199 Patient's noncompliance with other medical treatment and regimen due to unspecified reason; Z79.01 Long term (current) use of anticoagulants; Z86.711 Personal history of pulmonary embolism; Z87.11 Personal history of peptic ulcer disease; Z86.010 Personal history of colon polyps; Z87.19 Personal history of other diseases of the digestive system; Z85.820 Personal history of malignant melanoma of skin; Z85.828 Personal history of other malignant neoplasm of skin; Z86.16 Personal history of COVID-19; Z22.322 Carrier or suspected carrier of Methicillin resistant Staphylococcus aureus; Z68.33 Body mass index [BMI] 33.0-33.9, adult; Z98.84 Bariatric surgery status; Z87.891 Personal history of nicotine dependence; Z88.7 Allergy status to serum and vaccine; Z88.8 Allergy status to other drugs, medicaments and biological substances
CPT/HCPCS: 36415; 73020; 80053; 83036; 85027; 87070; 87147; 94640; 97167; 97535

== ENCOUNTER 2024-01-31 12:36 | Emergency (ER) | payer OTHER, SELFPAY ==
[2024-01-31 12:38] VITALS: BP 162/109
--- NOTE | 2024-01-31 13:07 | ED.MUSCINJ ---
HPI-Injury
General
Chief Complaint: Musculo-Skeletal Complaint
Source: patient
Exam Limitations: none
Time Seen by Provider: 01/31/24 12:58
Nursing documentation reviewed up to this point in time: agreed with
History of Present Illness-Injury
Initial Injury comments:
83 yo female left reverse total shoulder surgery 01/26 (5 days ago) discharged to home left arm in sling. She states her right shoulder down to her elbow is painful. States this is not new. No recollection of injury.
Upon further discussion, pt son is not home most of time, her friend who she said could help her who is 78 years old, didn't show up today, she states she cannot help herself, she could not even get herself a couple coffee today.
She does not want to go into a rehab facility.
When explained that I would do an x-ray of her right shoulder she said 'you probably won't find anything.'
Past History
Past History
ED Past Medical History: Arrthythmia, Asthma, CHF, COPD, GERD, NIDDM and Other (Sleep apnea, polyps, peptic ulcer disease, Thakkar's esophagitis, diverticulosis)
ED Past Surgical History: Appendectomy, Gynecological (Right Oophorectomy with tube) and Other (Gastric bypass)
Social History
Tobacco: Former smoker
Alcohol: None
Drug: None
Personal:
Living: alone
Family History
Family History: Other (Mother with previous pleurisy)
Review of Systems
Review of Systems
Allergies reviewed?: Yes
All Other Systems: ROS reviewed and negative except as documented in HPI and ROS
Constitutional: Denies fever
Respiratory: Denies trouble breathing
Cardiac: Denies chest pain
ABD/GI: Denies abdominal pain or nausea
: Denies dysuria
Musculoskeletal: Reports other (pain right shoulder to elbow. Left arm post op in sling)
Skin: Reports other (dressing dry and intact left shoulder)
Neurological: Denies headache, weakness or numbness
Phy Exam
Physical Exam
Physical Exam:
GENERAL: No acute distress. A&Ox3. Elderly and frail
CONSTITUTIONAL: Afebrile.
EYES: clear, conjunctivae normal
ENMT: moist mucus membranes, Pharynx nl
RESPIRATORY: Regular respirations, nonlabored, lungs clear.
CARDIOVASCULAR: Regular rate and rhythm, no murmurs, no rubs.
GI: Soft, nontender, normal BS
MUSCULOSKELETAL: Unable to lift right arm due to pain from shoulder to elbow. Fingers and wrist, forearm non tender. Yells out with any movement or palpation from elbow to clavicle. No swelling, discoloration or deformity. Normal radial pulse,
brisk capillary refill. Well perfused.
SKIN: Warm, dry, pink
PSYCH: Depressed mood and affect. Well kept, keeps eyes closed when talking, poor eye contact.
NEUROLOGIC: Awake, alert and oriented. No focal neurological deficits
Injury Course
Orders/Labs/Results
Orders:
Orders
01/31/24 13:06
CR Shoulder - Right Min 2 View Urgent
Reason For Exam: Pain no recollec of injury
Physical Therapy Consult [Pt Eval And Treat] Urgent
Activity Level: As Tolerated
01/31/24 13:07
Case Management Consult ONCE
Case Management Consult: Discharge Planning
Comment: Pt unable to care for self at home, does not want to go to rehab facility, any chance she can get
home care?
MDM/Problems Addressed
Differential Diagnosis Includes:
overuse right arm, bursitis right shoulder, tendinitis
MDM/Problems Addressed:
83 yo female from [facility], had left reverse total shoulder surgery 01/26 (5 days ago) discharged to home. She states her right shoulder down to her elbow is painful. States this is not new. No recollection of injury.
Upon further discussion, pt son is not home most of time, her friend who she said could help her who is 78 years old, didn't show up today, she states she cannot help herself, she could not even get herself a couple coffee today.
She does not want to go into a rehab facility.
When explained that I would do an x-ray of her right shoulder she said 'you probably not find anything.'
2:00 PM
Shoulder x-ray negative
Physical therapy in, patient observed walking from her room down the hallway to the bathroom and back again with minimal assistance
Case Management in: Pt refusing to go to rehab facility. She has VN, P/T. O/T 3 times a week, has a girlfriend who visits her daily.
I heard her on the phone with her son stating she is feeling better.
Her right shoulder pain is most likely from overuse due to having to use her right arm solely, due to left shoulder surgery, pt agrees with this. She is in process of weaning off Prednisone for COPD and takes 10 mg BID for next 5 days which may help.
She has to make f/u appointment with Dr. Garcia for left shoulder surgery and will update him on right shoulder as well
Pt has been OOB and ambulated hallway to several times independently.
She is comfortable going home. Daughter and son are supportive.
Her daughter will pick her up and take her home.
*Critical Care Note
Total Time (30-74mins, 75-104mins- exclusive of procedures): Not Applicable
ED Attending Note
-
Portions of this chart may have been created with voice recognition software.� Occasional wrong word or��sound alike� substitutions may have occurred due to the inherent limitations of voice recognition software.
Discharge Plan
Departure
Patient Disposition: Home (Routine Discharge)
Date of Disposition: 01/31/24
Time of Disposition: 15:29
Patient with high blood pressure during this ER visit?: No
Condition: Good
Discharge Problem:
Acute pain of right shoulder
Instructions: Shoulder Pain ED, Bursitis ED
Prescriptions:
No Action
multivitamin Tablet
1 tab PO DAILY
levalbuterol tartrate [Xopenex HFA] 45 mcg/actuation Hfa Aerosol Inhaler
1 puff INHALATION R Q6HPRN PRN (Reason: sob)
esomeprazole magnesium [Nexium] 40 mg Capsule,Delayed Release(Dr/Ec)
40 mg PO DAILY
dapagliflozin propanediol [Farxiga] 10 mg Tablet
10 mg PO DAILY
budesonide 0.5 mg/2 mL Suspension For Nebulization
0.5 mg INHALATION R BID
fluoxetine [Prozac] 20 mg Capsule
20 mg PO DAILY
furosemide 40 mg tablet
40 mg PO DAILY
levalbuterol HCl 0.63 mg/3 mL solution for nebulization
0.63 mg INHALATION R BID
potassium chloride 20 mEq packet
20 meq PO DAILY
hydrocodone-acetaminophen 5-325 mg tablet
1 tab PO Q6H PRN (Reason: Pain) Qty: 10 0RF
sotalol 80 mg Tablet
80 mg PO BID
cholecalciferol (vitamin D3) [Vitamin D3] 25 mcg (1,000 unit) Tablet
25 mcg PO DAILY
mupirocin 2 % ointment
1 applic intranasal BID Qty: 1 0RF
Patient Comments:
started Tuesday01/23/24
alprazolam 0.5 mg Tablet
0.5 mg PO BID Qty: 0 0RF
mupirocin 2 % Ointment
1 applic intranasal BID 14 Days Qty: 0 0RF
docusate sodium 100 mg Capsule
100 mg PO BID Qty: 0 0RF
Eliquis 2.5 mg Tablet
2.5 mg PO BID 2 Days Qty: 0 0RF
sennosides [Senna Laxative] 8.6 mg Tablet
17.2 mg PO BID Qty: 0 0RF
prednisone 20 mg Tablet
40 mg PO DAILY Qty: 0 0RF
Referrals:
Waqas Garcia MD [Active] - Call in 1-3 days for appt
Matthias Montgomery MD [Family Provider] -
Activity Restrictions/Additional Instructions:
As we discussed, your shoulder pain on the right is most likely from overusing your right arm due to the fact that you cannot use her left arm.
Tylenol 1000 mg up to 3 times a day as needed for pain.
Call Dr. Garcia's office and make an appointment for follow-up
Interventions
Interventions:
*Risk Screen - Suicide Last Done: 01/31/24 12:38
*General Assessment Last Done: 01/31/24 12:38
*Neglect/Abuse Screening Last Done: 01/31/24 12:38
ED- Fall Risk Assessment Last Done: 01/31/24 12:57
*ED COVID-19 Vaccine History Last Done: 01/31/24 13:22
*Nursing Disposition Last Done: 01/31/24 16:17
ED-Musculoskeletal Assessment Last Done: 01/31/24 12:57
Discharge Date and Time
Discharge Date/Time: 01/31/24 16:19
Print Language: TURKMEN
[2024-01-31 16:13] VITALS: BP 155/88
== END 2024-01-31 16:19 | disposition home or self-care (01) ==
LOC: EMR 12:36
PROVIDERS: EMERGENCY PHYSICIAN Emergency Medicine; FAMILY PHYSICIAN Family Medicine
DX: M25.511 Pain in right shoulder (principal); J45.909 Unspecified asthma, uncomplicated; I50.9 Heart failure, unspecified; J44.9 Chronic obstructive pulmonary disease, unspecified; K21.9 Gastro-esophageal reflux disease without esophagitis; E11.9 Type 2 diabetes mellitus without complications; G47.30 Sleep apnea, unspecified; Z87.11 Personal history of peptic ulcer disease; K22.70 Barrett's esophagus without dysplasia; Z87.19 Personal history of other diseases of the digestive system
CPT/HCPCS: 99283; 73030

== ENCOUNTER 2024-05-08 09:49 | Emergency (ER) | payer OTHER, SELFPAY ==
[2024-05-08 09:59] VITALS: BP 107/71
--- NOTE | 2024-05-08 10:03 | ED.GENMED ---
ED Provider Triage
<Osorio Pitts PA-C - Last Filed: 05/08/24 10:05>
-
Patient seen by provider in Triage?: Seen in Triage
Attestation: A medical screening examination has been initiated by a qualified medical provider. Based on the assessment performed at this time, it has been determined that an emergent medical condition may exist and the patient has been informed
that further medical evaluation and possible additional diagnostic testing may be needed.
HPI: 83-year-old female presents for evaluation of the left upper extremity and left lower extremity 'pain and weakness' ongoing for the past 2 weeks. States that the left shoulder and upper arm are worsening over the left leg has stayed the same.
Was scheduled for a DVT ultrasound as an outpatient at 1030 today but came to the ER instead. She states 'my left side is useless. Denies headache or vision changes.
GENERAL: Alert , in no apparent distress
EYE: No visual abnormalities.
NECK: Trachea midline
ENT: No visible abnormalities.
LUNGS: No acute respiratory distress
NEUROLOGICAL: Alert and oriented
SKIN: Skin intact. No visible changes.
MUSCULOSKELETAL: Patient restricts movement of the left upper and left lower extremities secondary to pain, no obvious flaccidity
PSYCH: Normal and appropriate interaction.
A/P: Left-sided weakness/pain. She does have left total shoulder arthroplasty prosthesis, certainly would consider joint infection but her symptoms are so widespread and there is no obvious shoulder effusion. Will order for a CT of the head to
evaluate for a subacute stroke, basic labs and EKG
This is a medical evaluation conducted in person to initiate diagnostic evaluation and provide initial therapeutics. Please see further documentation by the treating clinician.
History of Present Illness
<Osorio Pitts PA-C - Last Filed: 05/08/24 10:05>
General
Chief Complaint: Musculo-Skeletal Complaint
Time Seen by Provider: 05/08/24 11:41
<Wayne Johnston PA-C - Last Filed: 05/08/24 15:20>
General
Source: patient
History of Present Illness
History of Present Illness:
83-year-old female with past medical history of atrial fibrillation, CHF, COPD, chronic pain syndrome presenting to the emergency department for evaluation of 2 separate concerns including left lower extremity pain and left upper extremity pain.
Both symptoms have been ongoing for quite some time but the left leg is a little bit more acute with her symptoms worsening over the last 2 weeks. Patient notes pain is more so within the groin region and worse with movement. Patient was scheduled
to have an ultrasound to rule out DVT this morning however due to coming to the emergency department missed this appointment. Patient notes that she also takes chronic oral pain medicine/opiate medications for her left upper extremity pain but has
been having increased pain to the entirety of the left upper extremity over the last few weeks no new traumas or injuries.
Past History
<Osoiro Pitts PA-C - Last Filed: 05/08/24 10:05>
Past History
ED Past Medical History: Arrthythmia, Asthma, CHF, COPD, GERD, NIDDM and Other (Sleep apnea, polyps, peptic ulcer disease, Thakkar's esophagitis, diverticulosis)
ED Past Surgical History: Appendectomy, Gynecological (Right Oophorectomy with tube) and Other (Gastric bypass)
Social History
Tobacco: Former smoker
Alcohol: None
Drug: None
Personal:
Living: alone
Family History
Family History: Other (Mother with previous pleurisy)
Review of Systems
<Wayne Johnston PA-C - Last Filed: 05/08/24 15:20>
Review of Systems
All Other Systems: ROS reviewed and negative except as documented in HPI and ROS
Phy Exam
<Wayne Johnston PA-C - Last Filed: 05/08/24 15:20>
Physical Exam
Physical Exam:
GENERAL: Alert , in no apparent distress
EYE: conjunctiva clear
NECK: Supple
ENT: o/p clr, mmm.
CARDIAC: Regular rate and rhythm
LUNGS: Clear breath sounds bilaterally, no acute respiratory distress, no wheezes/rales/rhonchi
NEUROLOGICAL: Alert and oriented
SKIN: Warm and dry, skin intact.
MUSCULOSKELETAL: well perfused. LLE: No obvious deformities or focal areas of tenderness however patient does note increased pain to the left groin with hip flexion and extension. Extremities otherwise warm and well-perfused. LUE: Diffuse
arthritic changes noted to the left hand and wrist. Patient notes pain with any attempted movement of the hand, wrist or shoulder. Easily palpable radial pulse. Cap refill less than 2 seconds and sensation is grossly intact to light touch.
Otherwise no signs of trauma
PSYCH: Normal and appropriate interaction.
Scores
<Wayne Johnston PA-C - Last Filed: 05/08/24 15:20>
Heart Failure Risk
Heart Failure Risk Score: Not Applicable
Heart Score for Chest Pain Patients
STEMI patient?: Not applicable
Withdrawal Assessment of Alcohol
Withdrawal Assessment Completed?: Not applicable
Course
<Osorio Pitts PA-C - Last Filed: 05/08/24 10:05>
Orders/Labs/Results
Orders:
Orders
05/08/24 10:02
Electrocardiogram (*1) Urgent
Reason for Study: QTc Monitoring
CT Head W/o Iv Contrast Urgent
Comment:
Reason For Exam: L sided weakness/pain x 2 weeks
EKG- Treatment ONCE
05/08/24 10:08
Complete Blood Count/With Diff Urgent
Comprehensive Metabolic Panel Urgent
05/08/24 11:45
CR Shoulder - Left Min 2 View* Urgent
Comment:
Reason For Exam: pain with movement
US Periph Venous LOWER Ext LT Urgent
Comment:
Reason For Exam: pain
05/08/24 11:51
CR Hand - Left Min 3 Views Urgent
Comment:
Reason For Exam: pain
CR Wrist - Left Min 3 Views Urgent
Comment:
Reason For Exam: pain
Abnormal Lab Results
05/08/24
10:08
MCHC 32.6 L g/dL
(33.0-37.0)
RDW 15.7 H %
(11.5-14.5)
MPV 11.3 H fL
(7.4-10.4)
Absolute Lymphs (auto) 0.9 L 10^3/uL
(1.2-3.4)
Lymphocytes % 12.0 L %
(20.5-51.1)
BUN 22 H mg/dl
(7-17)
05/08/24 10:08
05/08/24 10:08
Vital Signs
Initial and Last Documented VS:
Initial Vital Signs
Temp Pulse Resp BP Pulse Ox
98.4 F 67 20 107/71 98
05/08/24 09:59 05/08/24 09:59 05/08/24 09:59 05/08/24 09:59 05/08/24 09:59
Last Documented Vital Signs
Temp Pulse Resp BP Pulse Ox
98.4 F 61 18 125/91 96
05/08/24 09:59 05/08/24 14:44 05/08/24 14:44 05/08/24 14:44 05/08/24 14:44
<Wayne Johnston PA-C - Last Filed: 05/08/24 15:20>
Orders/Labs/Results
Orders:
Orders
05/08/24 10:02
Electrocardiogram (*1) Urgent
Reason for Study: QTc Monitoring
CT Head W/o Iv Contrast Urgent
Comment:
Reason For Exam: L sided weakness/pain x 2 weeks
EKG- Treatment ONCE
05/08/24 10:08
Complete Blood Count/With Diff Urgent
Comprehensive Metabolic Panel Urgent
05/08/24 11:45
CR Shoulder - Left Min 2 View* Urgent
Comment:
Reason For Exam: pain with movement
US Periph Venous LOWER Ext LT Urgent
Comment:
Reason For Exam: pain
05/08/24 11:51
CR Hand - Left Min 3 Views Urgent
Comment:
Reason For Exam: pain
CR Wrist - Left Min 3 Views Urgent
Comment:
Reason For Exam: pain
Abnormal Lab Results
05/08/24
10:08
MCHC 32.6 L g/dL
(33.0-37.0)
RDW 15.7 H %
(11.5-14.5)
MPV 11.3 H fL
(7.4-10.4)
Absolute Lymphs (auto) 0.9 L 10^3/uL
(1.2-3.4)
Lymphocytes % 12.0 L %
(20.5-51.1)
BUN 22 H mg/dl
(7-17)
05/08/24 10:08
05/08/24 10:08
Vital Signs
Initial and Last Documented VS:
Initial Vital Signs
Temp Pulse Resp BP Pulse Ox
98.4 F 67 20 107/71 98
05/08/24 09:59 05/08/24 09:59 05/08/24 09:59 05/08/24 09:59 05/08/24 09:59
Last Documented Vital Signs
Temp Pulse Resp BP Pulse Ox
98.4 F 61 18 125/91 96
05/08/24 09:59 05/08/24 14:44 05/08/24 14:44 05/08/24 14:44 05/08/24 14:44
<Wayne Johnston PA-C - Last Filed: 05/08/24 15:20>
MDM/Problems Addressed
Differential Diagnosis Includes:
Chronic pain exacerbation, osteoarthritis, I do not have concern for fracture, I also have minimal concern for DVT but given patient was supposed to have an ultrasound will obtain this
MDM/Problems Addressed:
83-year-old female presenting to the emergency department for evaluation of acute on chronic pain to the left upper extremity, also with new pain to the left groin. Overall I suspect this is an exacerbation of patient's chronic pain. Ultrasound
and x-ray imaging ordered. Labs were initiated in triage and are largely unremarkable. Anticipate discharge.
<Wayne Johnston PA-C - Last Filed: 05/08/24 15:20>
*Radiology
Radiology exam reviewed: radiology read reviewed
*Pulse Oximetry
Patient hypoxic: no
*Critical Care Note
Total Time (30-74mins, 75-104mins- exclusive of procedures): Not Applicable
<Wayne Johnston PA-C - Last Filed: 05/08/24 15:20>
Patient Management
Escalation/DeEscalation of care consider admission/obs:
Patient's ultrasound without any evidence for any acute DVT. Her x-ray findings are consistent with arthritic changes. She is stable for discharge home with outpatient management with primary care. She was also provided with information for pain
management. Stable for discharge home.
ED Attending Note
<Osorio Pitts PA-C - Last Filed: 05/08/24 10:05>
-
Portions of this chart may have been created with voice recognition software.� Occasional wrong word or��sound alike� substitutions may have occurred due to the inherent limitations of voice recognition software.
Discharge Plan
Departure
Patient Disposition: Home (Routine Discharge)
Date of Disposition: 05/08/24
Time of Disposition: 14:24
Patient with high blood pressure during this ER visit?: No
Discharge Problem:
Left leg pain, Left arm pain
Instructions: Chronic pain
Prescriptions:
No Action
multivitamin Tablet
1 tab PO DAILY
levalbuterol tartrate [Xopenex HFA] 45 mcg/actuation Hfa Aerosol Inhaler
1 puff INHALATION R Q6HPRN PRN (Reason: sob)
esomeprazole magnesium [Nexium] 40 mg Capsule,Delayed Release(Dr/Ec)
40 mg PO DAILY
dapagliflozin propanediol [Farxiga] 10 mg Tablet
10 mg PO DAILY
budesonide 0.5 mg/2 mL Suspension For Nebulization
0.5 mg INHALATION R BID
fluoxetine [Prozac] 20 mg Capsule
20 mg PO DAILY
furosemide 40 mg tablet
40 mg PO DAILY
levalbuterol HCl 0.63 mg/3 mL solution for nebulization
0.63 mg INHALATION R BID
potassium chloride 20 mEq packet
20 meq PO DAILY
hydrocodone-acetaminophen 5-325 mg tablet
1 tab PO Q6H PRN (Reason: Pain) Qty: 10 0RF
sotalol 80 mg Tablet
80 mg PO BID
cholecalciferol (vitamin D3) [Vitamin D3] 25 mcg (1,000 unit) Tablet
25 mcg PO DAILY
mupirocin 2 % ointment
1 applic intranasal BID Qty: 1 0RF
Patient Comments:
started Tuesday01/23/24
alprazolam 0.5 mg Tablet
0.5 mg PO BID Qty: 0 0RF
mupirocin 2 % Ointment
1 applic intranasal BID 14 Days Qty: 0 0RF
docusate sodium 100 mg Capsule
100 mg PO BID Qty: 0 0RF
Eliquis 2.5 mg Tablet
2.5 mg PO BID 2 Days Qty: 0 0RF
sennosides [Senna Laxative] 8.6 mg Tablet
17.2 mg PO BID Qty: 0 0RF
prednisone 20 mg Tablet
40 mg PO DAILY Qty: 0 0RF
Referrals:
Cecilio Rivera MD [Active] - (Pain Management)
Matthias Montgomery MD [Family Provider] -
Interventions
Interventions:
*Risk Screen - Suicide Last Done: 05/08/24 09:59
*General Assessment Last Done: 05/08/24 11:22
*Neglect/Abuse Screening Last Done: 05/08/24 11:22
*Nursing Disposition Last Done: 05/08/24 14:47
ED-Musculoskeletal Assessment Last Done: 05/08/24 11:22
Discharge Date and Time
Discharge Date/Time: 05/08/24 14:48
Print Language: [place]IZ[place]
[2024-05-08 10:24] LABS: % Basophils 0.6 % (0-2); % Eosinophils 4.3 % (0-6); % Immature Granulocytes 0.3 % (0-0.5); % Monocytes 7.6 % (1.7-9.3); % Neutrophils 75.2 % (42.2-75.2); Absolute Eosinophils 0.3 10^3/uL (0-0.7); Absolute Lymphocytes 0.9 10^3/uL (1.2-3.4); Absolute Monocytes 0.6 10^3/uL (0.1-0.6); Absolute Neutrophils 5.4 10^3/uL (1.4-6.5); Hematocrit 40.8 % (37.0-47.0); Hemoglobin 13.3 g/dL (12.0-16.0); Mean Corp Hgb Conc. 32.6 g/dL (33.0-37.0); Mean Corpuscular Hgb 29.4 pg (27.0-31.0); Mean Corpuscular Volume 90.1 fL (81.0-99.0); Mean Platelet Volume 11.3 fL (7.4-10.4); Nucleated Red Blood Cells % 0 %; Platelet Count 290 10^3/uL (130-400); Red Blood Cell Count 4.53 10^6/uL (4.20-5.40); Red Cell Dist. Width 15.7 % (11.5-14.5); White Blood Cell Count 7.2 10^3/uL (4.8-10.8)
[2024-05-08 10:51] LABS: ALT (SGPT) 12 U/L (0-35); AST (SGOT) 25 U/L (14-36); Albumin 3.6 g/dl (3.5-5.0); Alkaline Phosphatase 80 U/L (38-126); Blood Urea Nitrogen 22 mg/dl (7-17); Calcium 9.1 mg/dl (8.4-10.2); Carbon Dioxide 23 mmol/L (22-30); Chloride 102 mmol/L (98-107); Glucose 90 mg/dl (70-99); Potassium 3.8 mmol/L (3.5-5.1); Sodium 139 mmol/L (135-145); Total Bilirubin 0.4 mg/dl (0.2-1.3); Total Protein 6.5 g/dl (6.3-8.2)
[2024-05-08 14:44] VITALS: BP 125/91
== END 2024-05-08 14:48 | disposition home or self-care (01) ==
LOC: EMR 09:49
PROVIDERS: Physician Assistant; EMERGENCY PHYSICIAN Emergency Medicine; FAMILY PHYSICIAN Family Medicine
DX: M79.605 Pain in left leg (principal); M79.602 Pain in left arm; I48.91 Unspecified atrial fibrillation; I50.9 Heart failure, unspecified; G89.4 Chronic pain syndrome; Z87.891 Personal history of nicotine dependence
CPT/HCPCS: 99285; 70450; 73030; 73110; 73130; 80053; 85025; 93971

== ENCOUNTER → 2024-06-20 11:06 | Outpatient (REF) | payer OTHER, SELFPAY | LOC: RAD 11:06 | PROVIDERS: ATTENDING PHYSICIAN Internal Medicine Critical Care Medicine; FAMILY PHYSICIAN Family Medicine | DX: R91.8 Other nonspecific abnormal finding of lung field (principal) | CPT/HCPCS: 71046 ==

== ENCOUNTER 2024-07-31 06:24 | Inpatient (IN) | payer OTHER, SELFPAY ==
[2024-07-31] VITALS (60 sets, daily range): BP systolic 67–153; BP diastolic 32–112; PULSE 58–88; O2SAT 94; BMI 24.3
[2024-07-31] MEDS: TYLENOL 1000 MG PO (04:26)
--- NOTE | 2024-07-31 04:27 | ED.GENMED ---
History of Present Illness
General
Chief Complaint: Breathing Problem
Time Seen by Provider: 07/31/24 04:18
History of Present Illness
History of Present Illness:
TIME OF INITIAL ENCOUNTER: 4:30 AM
HPI: Patient came in from home by ambulance due to shortness of breath. The shortness of breath has been ongoing for the past 1 to 2 days. She states that family members that she has been exposed to have been told that they tested positive for
flu. She does not usually wear oxygen. She does have a history of CHF and COPD. She is not currently taking any steroids. She is found to be febrile upon arrival here., Febrile
EXAM:
GENERAL: The patient is ill-appearing
HEENT: Dry oral mucosa
CARDIOVASCULAR: No murmurs, normal heart rate, regular rhythm, No chest wall tenderness
PULMONARY: Mild respiratory distress, breath sounds are diminished with some wheeze
ABDOMEN: Soft with no peritoneal signs, no tenderness
NEUROLOGIC: Fair strength all extremities, no coordination deficits
PSYCHIATRIC: Reasonable insight and judgement but appears to be somewhat of a limited historian at times, she is febrile
EXTREMITIES: Nontender, no edema, moves all extremities equally
SKIN: No rash, no lesions
NUMBER AND COMPLEXITY OF PROBLEMS ADDRESSED AT THE ENCOUNTER
� Chronic conditions affecting care: Has had gastric bypass surgery, A-fib, CHF,
� Acute Exacerbation and/or Progression of Chronic Illness: This is an acute problem
� Differential Diagnosis includes: Pneumonia, influenza, viral syndrome, CHF exacerbation
AMOUNT AND/OR COMPLEXITY OF DATA TO BE REVIEWED AND ANALYZED
� I performed an independent evaluation of and my interpretation is:
EKG: Sinus 93, normal axis, baseline artifact, PACs
CT:
X-rays: Suggestion of some degree of volume overload but no definite consolidation
Laboratory Studies: White count and hemoglobin are normal, chemistries unremarkable however the troponin is 0.052 which is newly elevated, BNP is 5730 which is much higher than it was 1 year ago. Flu positive.
Other:
� Review of other/old records: The patient was admitted in December when she had left shoulder surgery
� Clinical information was obtained by an independent historian: EMS
� Prescriptions/Medications Considered but not given:
� Further testing considered but not performed:
RISK OF COMPLICATIONS AND/OR MORBIDITY OR MORTALITY OF PATIENT MANAGEMENT
� Social determinants of health affecting care: The patient lives at home
� Discussion with other providers: Hospitalist, Dr. Malave for admission
� Escalation of care including admission/observation vs risk of discharge considered: While in the emergency department, before any diuretic given, patient's blood pressure started to drop. Overall otherwise her clinical status
remains unchanged. Instead of diuresing we then gave IV fluids.
ANY OTHER UPDATES:
Past History
Past History
ED Past Medical History: Arrthythmia, Asthma, CHF, COPD, GERD, NIDDM and Other (Sleep apnea, polyps, peptic ulcer disease, Thakkar's esophagitis, diverticulosis)
ED Past Surgical History: Appendectomy, Gynecological (Right Oophorectomy with tube) and Other (Gastric bypass)
Social History
Tobacco: Former smoker
Alcohol: None
Drug: None
Personal:
Living: alone
Family History
Family History: Other (Mother with previous pleurisy)
Phy Exam
Physical Exam
Physical Exam:
See HPI
Scores
Heart Failure Risk
Heart Failure Risk Score: Not Applicable
Sepsis
Sepsis Screening
Sepsis Assessment: Sepsis
Sepsis Screen
Sepsis Screen: Sepsis
Date: 08/01/24
Time: 08:19
Course
Orders/Labs/Results
Orders:
Orders
07/31/24 04:02
Electrocardiogram (*1) Urgent
Reason for Study: Shortness of Breath
07/31/24 04:03
EKG- Treatment ONCE
07/31/24 04:14
COVID-19 Antigen Urgent
Source: Nasal Swab
Complete Blood Count/With Diff Urgent
Comprehensive Metabolic Panel Urgent
Pro-BNP [NT-proBNP] Urgent
Troponin I Urgent
Influenza A+B Rapid Molecular Urgent
ALYSSA Source: Nasal Swab
Specimen Description:
07/31/24 04:18
Acetaminophen [Tylenol] 1,000 mg PO NOW STA
CR Chest Portable - 1 View Urgent
Comment:
Reason For Exam: hypoxia
Reason Study Needs to be Portable: Patient Unstable
07/31/24 04:34
Ipratropium/Albuterol Sulfate [Duoneb] 3 ml INH R NOW STA
07/31/24 05:32
Oseltamivir Phosphate [Tamiflu] 75 mg PO NOW STA
07/31/24 05:35
Aspirin 325 mg PO NOW STA
07/31/24 05:37
Furosemide [Lasix] 20 mg IV NOW STA
07/31/24 05:41
MethylPREDNISolone PF [Solu-Medrol Pf] 125 mg IV NOW STA
07/31/24 05:58
Admit/Transfer Patient As Directed
Co-Sign Provider:
Level of Care: Inpatient admission
Assign to:: IMU- Intermediate Care
Physician / Group: Ananda
Diagnosis: Influenza A Pneumonia, Sepsis
Reason for Hospitalization: Influenza A Pneumonia, Sepsis
Expected length of stay greater than two midnights?: Yes
ELOS- Estimated Length of Stay in days: 4
I certify the patient meets the requirements for IP care: Yes
PRN Pain Medication Management As Directed
May give lesser potent ordered pain med per pt: Yes
preference::
Protocol:: Medication orders for pain may be administered in a
manner that supports deferring to patient preference
when the pt is:
- Requesting an ordered lesser potent pain medication.
Least to most potent pain medications are defined
as: acetaminophen < NSAID < tramadol < opioids
(morphine, oxycodone, hydromorphone).
- Requesting a lesser dose of the same medication IF
ORDERED.
- Requesting a less intrusive route of administration
if both routes are prescribed by the provider (PO <
IV).
07/31/24 06:00
Code Status As Directed
Resuscitation Status: Full Code
07/31/24 06:23
0.9% Sodium Chloride 500 ml [Nss] 500 ml IV BOLUS
07/31/24 06:30
Acetaminophen [Tylenol] 650 mg PO Q4HPRN PRN
Albuterol [ProAIR HFA INHALER] 2 puff INH R Q4HPRN PRN
07/31/24 06:30
CARDIOLOGY CONSULT Routine
Consulting Provider: Christopher Courtney
Was physician already notified: No
Reason for consult: Abnormal Trop, Influenza
Consult Notification Routine
Specialty to Notify: Cardiology
Date consulting provider notified: 07/31/24
Time consulting provider notified: 09:51
Notified:: Provider
Activity As Directed
Activity Level: Ambulate
With Assistance
EKG with chest pain [ECG as needed] As Directed
ECG as needed for:: Chest Pain
I/O [Intake/ Output] As Directed
Frequency: Per unit guidelines
Precautions As Directed
Type of Precautions: Droplet
Vital Signs As Directed
Frequency: Per unit guidelines
Weight As Directed
Frequency: Daily
Chest PT [Rx Chest Pt] [RESP] Routine
Special Instructions: BID
Oxygen Therapy [O2 Therapy] [RESP] Routine
Titrate/Wean O2 to maintain O2 sat greater than (%): 94
Ot Eval And Treat Routine
PT Consult [Pt Eval And Treat] Routine
Activity Level: Ambulate
With Assistance
07/31/24 06:35
Troponin I Q6H
07/31/24 08:00
Apixaban [Eliquis] 2.5 mg PO BID
Aspirin Chewable [Low Strength Aspirin] 81 mg PO DAILY
Guaifenesin [Mucinex] 600 mg PO Q12
Piperacillin/Tazo 3.375 Gram [Zosyn] 3.375 gram in 50 ml IV Q6H
Sotalol [Betapace] 80 mg PO BID
07/31/24 12:29
Troponin I Q6H
07/31/24 18:00
MethylPREDNISolone PF [Solu-Medrol Pf] 40 mg IV Q12H
07/31/24 18:01
Troponin I Q6H
07/31/24 20:00
Oseltamivir Phosphate [Tamiflu] 75 mg PO BID
08/01/24 05:27
Basic Metabolic Panel IN AM
Cardiovascular Evaluation IN AM
Complete Blood Count/No Diff IN AM
08/01/24 06:00
EKG [Electrocardiogram (*1)] IN AM
Reason for Study: Chest Pain
Abnormal Lab Results
07/31/24
04:14
MCHC 32.2 L g/dL
(33.0-37.0)
RDW 17.2 H %
(11.5-14.5)
Absolute Neuts (auto) 7.6 H 10^3/uL
(1.4-6.5)
Neutrophils % 80.4 H %
(42.2-75.2)
Lymphocytes % 12.8 L %
(20.5-51.1)
Chloride 97 L mmol/L
(98-107)
Troponin I 0.052 H* ng/ml
07/31/24 04:14
07/31/24 04:14
Vital Signs
Initial and Last Documented VS:
Initial Vital Signs
Temp Pulse Resp BP Pulse Ox
39.1 C H 108 26 139/58 87
07/31/24 03:51 07/31/24 03:51 07/31/24 03:51 07/31/24 03:51 07/31/24 03:51
Last Documented Vital Signs
Temp Pulse Resp BP Pulse Ox
35.9 C L 61 19 137/83 98
08/01/24 03:22 08/01/24 06:00 08/01/24 06:00 08/01/24 06:00 08/01/24 06:00
*Critical Care Note
Total Time (30-74mins, 75-104mins- exclusive of procedures): Not Applicable
ED Attending Note
-
Portions of this chart may have been created with voice recognition software.� Occasional wrong word or��sound alike� substitutions may have occurred due to the inherent limitations of voice recognition software.
Discharge Plan
Departure
Patient Disposition: Admit
Date of Disposition: 07/31/24
Time of Disposition: 05:38
Presentation/result/management discussed w/ accepting MD/DO: Hospitalist
Discharge Problem:
Influenza
Interventions
Interventions:
*Risk Screen - Suicide Last Done: 07/31/24 03:51
*General Assessment Last Done: 07/31/24 03:51
*Neglect/Abuse Screening Last Done: 07/31/24 03:51
ED- Fall Risk Assessment Last Done: 07/31/24 14:58
*ED COVID-19 Vaccine History Last Done: 07/31/24 03:51
*Nursing Disposition Last Done: 07/31/24 18:58
ED- Cardiac Assessment Last Done: 07/31/24 05:32
ED- Pulmonary Assessment Last Done: 07/31/24 04:00
Discharge Date and Time
Discharge Date/Time: 07/31/24 18:59
[2024-07-31 04:33] LABS: % Basophils 0.2 % (0-2); % Immature Granulocytes 0.3 % (0-0.5); % Lymphocytes 12.8 % (20.5-51.1); % Monocytes 6.3 % (1.7-9.3); % Neutrophils 80.4 % (42.2-75.2); Absolute Lymphocytes 1.2 10^3/uL (1.2-3.4); Absolute Monocytes 0.6 10^3/uL (0.1-0.6); Absolute Neutrophils 7.6 10^3/uL (1.4-6.5); Hematocrit 43.8 % (37.0-47.0); Hemoglobin 14.1 g/dL (12.0-16.0); Mean Corp Hgb Conc. 32.2 g/dL (33.0-37.0); Mean Corpuscular Hgb 29.9 pg (27.0-31.0); Mean Platelet Volume 10.3 fL (7.4-10.4); Nucleated Red Blood Cells % 0 %; Platelet Count 199 10^3/uL (130-400); Red Blood Cell Count 4.71 10^6/uL (4.20-5.40); Red Cell Dist. Width 17.2 % (11.5-14.5); White Blood Cell Count 9.5 10^3/uL (4.8-10.8)
[2024-07-31] MEDS: DUONEB 3 ML INH ×3 (04:36→22:04)
[2024-07-31 04:41] LABS: COVID-19 Antigen Negative (Negative)
[2024-07-31 04:57] LABS: ALT (SGPT) 14 U/L (0-35); AST (SGOT) 24 U/L (14-36); Albumin 4.1 g/dl (3.5-5.0); Alkaline Phosphatase 72 U/L (38-126); Blood Urea Nitrogen 15 mg/dl (7-17); Calcium 9.2 mg/dl (8.4-10.2); Carbon Dioxide 28 mmol/L (22-30); Chloride 97 mmol/L (98-107); Glucose 91 mg/dl (70-99); Potassium 4.2 mmol/L (3.5-5.1); Sodium 135 mmol/L (135-145); Total Bilirubin 0.8 mg/dl (0.2-1.3); Total Protein 7.2 g/dl (6.3-8.2); eGFR > 60.00
[2024-07-31 05:04] LABS: NT-proBNP 5730 pg/ml; Troponin I 0.052 ng/ml
[2024-07-31] MEDS: ASPIRIN 325 MG PO (05:59)
[2024-07-31] MEDS: TAMIFLU 75 MG PO (05:59)
[2024-07-31] MEDS: SOLU-MEDROL PF 125 MG IV (06:00)
--- NOTE | 2024-07-31 06:05 | HPS.HSE ---
Family Physician
-
Family Physician: Matthias Montgomery
Chief Complaint
-
Cough, SOB
History of Present Illness
Patient is an 83y F with PMH significant for A-Fib, CHF and COPD who presents to ED complaining of cough and SOB. Patient states that she has had symptoms of cough, sneezing and general malaise for the past several days. This evening she became
increasingly short of breath and ultimately called 911. Patient states that multiple family members currently have the flu. She has not had the influenza vaccination as she is allergic.
Patient reports cough productive of yellow mucus. She denies any chest pain or palpitations. She has some abdominal cramping - but no N/V/D. No urinary complaints.
No recent changes in medications.
Patient notes that she weighs herself daily and states that she has lost about 90 lbs over the past year.
Medical History
Past Medical History
Past Medical History: Reports Other
Additional Past Medical History:
Persistent Atrial Fibrillation
ASCVD
Chronic HFpEF
Hypertension
COPD
DIEGO - Intolerant of PAP therapy
Skin Cancer
GERD / Thakkar's Esophagus / PUD
CKD III
Iron Deficiency Anemia
DVT / PE
Depression
Obesity s/p Gastric Bypass
Past Surgical History: Reports Other
Additional Past Surgical History:
Tari-en-Y Bypass
Left Lumpectomy
Appendectomy
D&C
Tympanoplasty
Ex Lap / ROSA
Inguinal Hernia Repair
Right Ankle ORIF
Left Shoulder Arthroplasty
T&A
Skin Cancer Excisions
Left TKA
PVI Ablation
Social History
Tobacco: Former Smoker (Remote tobacco use. 15 pack years total.)
Alcohol: None
Drug: None
Family History
Family History: Other (Father: CAD, Cirrhosis Mother: CVA)
Allergies / Home Medications
Allergies reflects when Allergies were last updated in [facility].
Home Medications with original date entered in [facility]
Allergy/Medication List:
Allergies
Allergy/AdvReac Type Severity Reaction Status Date / Time
bupropion [From Wellbutrin] Allergy Rash Verified 05/08/24 09:59
iron [From Venofer] Allergy FELL ILL Verified 05/08/24 09:59
REQUIRING
HOSPITALIZATION
celecoxib AdvReac Nausea Verified 05/08/24 09:59
Influenza Virus Vaccines AdvReac Vomiting Verified 05/08/24 09:59
x3 days
Home Medications
multivitamin 1 tab PO DAILY Supplement 11/09/22
dapagliflozin propanediol 10 mg tablet (Farxiga) 10 mg PO DAILY 06/12/23
esomeprazole magnesium 40 mg capsule,delayed release (Nexium) 40 mg PO DAILY GERD 06/12/23
levalbuterol tartrate 45 mcg/actuation aerosol inhaler (Xopenex HFA) 1 puff inhalation R Q6HPRN PRN sob 06/12/23
budesonide 0.5 mg/2 mL suspension for nebulization 0.5 mg inhalation R BID Lung/Breathing Issues 11/09/23
furosemide 40 mg tablet 40 mg PO DAILY Fluid Retention/Swelling 11/09/23
levalbuterol HCl 0.63 mg/3 mL solution for nebulization 0.63 mg inhalation R BID Lung/Breathing Issues 11/09/23
hydrocodone 5 mg-acetaminophen 325 mg tablet 1 tab PO Q6H PRN Pain #10 tabs 11/25/23
cholecalciferol (vitamin D3) 25 mcg (1,000 unit) tablet (Vitamin D3) 25 mcg PO DAILY 01/10/24
sotalol 80 mg tablet 80 mg PO BID 01/10/24
alprazolam 0.5 mg tablet 0.5 mg PO BID #0 tabs 01/28/24
docusate sodium 100 mg capsule 100 mg PO BID #0 caps 01/28/24
apixaban 2.5 mg tablet (Eliquis) 2.5 mg PO BID 07/31/24
prednisone 20 mg tablet 10 mg PO DAILY 07/31/24
Review of Systems
-
History Source: Patient
A 12 point ROS was completed and negative except as noted: Yes
Constitutional: Reports Weight Loss and Fatigue; Denies Fever or Chills
EENT: Reports Runny Nose; Denies Sore Throat
Respiratory: Reports Cough and Trouble Breathing
Cardiac: Denies Chest Pain or Palpitations
Abdomen/GI: Reports Abdominal Pain; Denies Nausea, Vomiting or Diarrhea
: Denies Dysuria, Frequency or Flank Pain
Musculoskeletal: Denies Joint Pain or Edema
Neurological: Denies Dizzy or Headache
Psych: Denies Depression or Anxiety
Physical Exam
Vital Signs
Vital Signs
Temp Pulse Resp BP Pulse Ox
102.3 F H 111 30 96/64 96
07/31/24 03:51 07/31/24 05:45 07/31/24 05:45 07/31/24 05:17 07/31/24 05:45
Physical Exam
General: Other (Ill-appearing 83y F in mild distress due to dyspnea.)
HEENT: Other (Dry MM. Neck supple. No JVD.)
Respiratory: Other (Coarse breath sounds throughout. Rhonchorous upper airway sounds.)
Cardiac: S1/S2, Irregular Rhythm and Murmur (II/ KEN)
GI: Soft, Non Tender, Non Distended and Normal Bowel Sounds
Musculoskeletal: No Clubbing, No Cyanosis and No Edema
Neuro: AO x 3
Laboratory Results
-
07/31/24 04:14
07/31/24 04:14
Laboratory Results
Total Bilirubin 0.8 mg/dl (0.2-1.3) 07/31/24 04:14
AST 24 U/L (14-36) 07/31/24 04:14
ALT 14 U/L (0-35) 07/31/24 04:14
Alkaline Phosphatase 72 U/L (38-126) 07/31/24 04:14
Troponin I 0.052 ng/ml H* 07/31/24 04:14
Impression/Plan
-
A/P: Patient is an 83y F with PMH significant for A-Fib, CHF and COPD who presents to ED complaining of cough and SOB.
Influenza A Pneumonia
Sepsis secondary to the above
Acute Hypoxemic Respiratory Insufficiency secondary to the above
- Admit for further evaluation and treatment.
- Patient presents with fever, tachypnea and tachycardia with positive influenza A and viral / interstitial pneumonia by CXR.
- Begin Tamiflu therapy.
- Will cover with abx for now given severity of illness / possible secondary infection.
- Supportive care with O2, albuterol MDI, chest PT, mucolytics, etc.
- Follow proper precautions.
- Patient is unvaccinated host.
- Follow for clinical improvement.
Abnormal Troponin
ASCVD
- Suspect non-ischemic myocardial injury secondary to acute illness / sepsis.
- No acute ischemia appreciated on EKG.
- Continue daily ASA for now. Follow troponin to peak.
- Cardiology evaluation for additional recommendations.
- Continue current CV med regimen.
Chronic HFpEF
- Doubt any acute exacerbation here.
- CXR findings, etc are likely secondary to viral pneumonia as noted above.
- Patient relates near 90lbs weight loss in the past 12-18 months.
- Hold diuretic therapy acutely including SGLT2 inhibitor.
- Follow I/Os, daily weights, etc.
- Cardiology evaluation as noted above.
Persistent Atrial Fibrillation
- Stable. Continue sotalol.
- Continue Eliquis for stroke risk reduction.
COPD with Acute Exacerbation
- Likely secondary to influenza as noted above.
- Continue with IV steroids for now and taper quickly if able.
- Albuterol MDI.
CKD III
- Stable. Renal function at baseline.
DVT Prophylaxis
History of DVT / PE
- Continue Eliquis.
Code Status: Full
[2024-07-31] MEDS: NSS 500 IV (06:29)
[2024-07-31] MEDS: ELIQUIS 2.5 MG PO ×2 (08:38→20:24)
[2024-07-31] MEDS: MUCINEX 600 MG PO ×2 (08:39→20:24)
[2024-07-31] MEDS: LOW STRENGTH ASPIRIN 81 MG PO (08:40)
[2024-07-31] MEDS: ZOSYN 50 IV ×3 (08:40→20:24)
--- NOTE | 2024-07-31 08:52 | CON.CAR ---
Addendum entered and electronically signed by Vladimir Pizarro MD 07/31/24 12:47:
I saw and examined the patient.
The REGION MANAGER's note was reviewed and I agree with the note.
Comment:83 yo female with chronic HFpEF, HTN, PAC's, persistent Afib on Eliquis and Sotalol, s/p ablation of Afib and atypical flutter 10/2022, h/o PE 03/2021, former tobacco (25 yrs go), gastric bypass surgery, COPD managed by Dr. Torres, and DIEGO
(CPAP intolerant), who presents to the ER with c/o SOB/cough and found to have FLU A. She reports home sick contacts at home. We are asked to comment on abnormal troponin. Patient is lethargic but easily arousable. She is tired, has not been
eating or drinking well. She has no cp. She denies sob. Vss with low normal bp currently but hypotensive at times, appears ill, she had mucous memranes. diffuse rales and rhonchi. RRR, no edema. ECG without SiNUS and PACS, qtc ok. No ischemic
changes, cxr without chf. Overall she has sepsis due to Flu A with Elevated troponin due to sepsis. She appears volume depleted so agree with IVF. She will conitnue with sotalol on typical dosing. Given HFpeF with current clinical scenario would
hold lasix and farxiga until improved.
Will follow peripherally.
Original Note:
Consultation
Consultation Request
Date/Time Consultation Requested: 07/31/24 6:30a
Date/Time Consultation Performed: 07/31/24 8:15a
Requesting Provider: Dr. Malave
Performing Provider: IBAN Hernandez for Dr. Pizarro
Reason for Consultation: sob, abnormal troponin
Medical History
-
Chief Complaint: sob
History of Present Illness:
Mrs. Wisdom is an 83 yo female with chronic HFpEF, HTN, PAC's, persistent Afib on Eliquis and Sotalol, s/p ablation of Afib and atypical flutter 10/2022, h/o PE 03/2021, former tobacco (25 yrs go), gastric bypass surgery, COPD managed by Dr. Torres,
and DIEGO (CPAP intolerant), who presents to the ER with c/o SOB and cough, and found to be positive for influenza A with sepsis/viral PNA. She is admitted to the hospitalist service and we are consulted for abnormal troponin (0.052, 0.100), she
denies any chest pain or palpitations. She is receiving Tamiflu currently. She admits to losing weight at home over the past year, weight is down to 139 lbs at home.
Past Medical History
Past Medical History: Other (as above)
Past Surgical History: Other (as above)
Social History
Tobacco: Former Smoker
Alcohol: None
Living: With Family
Family History
Family History: Early CAD (father CAD 53 )
Allergies / Home Medications
Allergy/AdvReac Type Severity Reaction Status Date / Time
bupropion [From Wellbutrin] Allergy Rash Verified 05/08/24 09:59
iron [From Venofer] Allergy FELL ILL Verified 05/08/24 09:59
REQUIRING
HOSPITALIZATION
celecoxib AdvReac Nausea Verified 05/08/24 09:59
Influenza Virus Vaccines AdvReac Vomiting Verified 05/08/24 09:59
x3 days
�Medication �Instructions �Recorded �Confirmed �Type
dapagliflozin propanediol 10 mg 10 mg PO DAILY 06/12/23 07/31/24 History
tablet (Farxiga)
esomeprazole magnesium 40 mg 40 mg PO DAILY GERD 06/12/23 07/31/24 History
capsule,delayed release (Nexium)
levalbuterol tartrate 45 1 puff inhalation R Q6HPRN PRN sob 06/12/23 07/31/24 History
mcg/actuation aerosol inhaler
(Xopenex HFA)
budesonide 0.5 mg/2 mL suspension 0.5 mg inhalation R BID 11/09/23 07/31/24 History
for nebulization Lung/Breathing Issues
furosemide 40 mg tablet 40 mg PO DAILY Fluid 11/09/23 07/31/24 History
Retention/Swelling
levalbuterol HCl 0.63 mg/3 mL 0.63 mg inhalation R BID 11/09/23 07/31/24 History
solution for nebulization Lung/Breathing Issues
cholecalciferol (vitamin D3) 25 25 mcg PO DAILY 01/10/24 07/31/24 History
mcg (1,000 unit) tablet (Vitamin
D3)
sotalol 80 mg tablet 40 mg PO BID 01/10/24 07/31/24 History
apixaban 2.5 mg tablet (Eliquis) 2.5 mg PO BID 07/31/24 07/31/24 History
diltiazem HCl 180 mg capsule,24 180 mg PO DAILY 07/31/24 History
hr,extended release
fluticasone furoate 200 1 inh inhalation R DAILY 07/31/24 07/31/24 History
mcg-vilanterol 25 mcg/dose
inhalation powder (Breo Ellipta)
folic acid 1 mg tablet 1 mg PO DAILY 07/31/24 History
hydrocodone 5 mg-acetaminophen 325 1 tab PO Q6HPRN PRN severe Pain 07/31/24 07/31/24 History
mg tablet
methotrexate sodium 2.5 mg tablet 0 mg PO QWEEK 07/31/24 History
potassium chloride 20 mEq 20 meq PO DAILY 07/31/24 History
tablet,extended release
prednisone 10 mg tablet 10 mg PO BID 07/31/24 History
Review of Systems
-
History Source: Patient
All other systems: Negative unless noted
Physical Exam
Vital Signs
Temp Pulse Resp BP Pulse Ox
99.1 F 84 23 97/71 95
07/31/24 06:45 07/31/24 06:45 07/31/24 06:45 07/31/24 06:40 07/31/24 06:45
Lab Results
07/31/24 04:14
07/31/24 04:14
Troponin I 0.100 ng/ml H* D 07/31/24 06:35
Qms-Q-Nklmsgoihcy Pept 5730 pg/ml 07/31/24 04:14
Physical Exam
General: Other (frail, elderly)
HEENT: Normocephalic
Respiratory: Wheezes (diffuse b/l) and Rhonchi (diffuse b/l)
Cardiac: S1/S2 and Regular Rhythm
Breast: Deferred by me
GI: Soft, Non Tender, Non Distended and Normal Bowel Sounds
Rectal: Deferred by Provider
Genito-urinary: No Costovertebral Tender
Musculoskeletal: No Clubbing, No Cyanosis and No Edema
Skin: Warm and Dry
Neuro: AO x 3
Psych: Calm
Impression / Plan
-
Abnormal troponin - acute non ischemic myocardial injury in the setting of acute influenza A, SOB.
- trend trop 0.052, 0.100.
- denies chest pain, EKG without ischemia.
- treat influenza.
- no need for ASA as she is on Eliquis for Afib/PE history.
Influenza A - positive.
- Tamiflu per hospitalist.
- supportive care.
Afib - persistent, in NSR on Sotalol 40mg BID, continue.
- continue Eliquis 2.5mg BID. [id number] VASc score is 5.
- s/p Afib and aflutter ablation 10/2022.
HFpEF - chronic.
- hypotension in the setting of sepsis, acute Flu A, SOB, viral PNA.
- hypotension noted so holding Lasix and Farxiga at this time.
- she has weight loss this year of 90 lbs, weight at home is 139 lbs.
HTN - mild hypotension in the setting of sepsis/Flu A/viral PNA.
- monitor.
Data Reviewed
-
EKG: Tracing Personally Visualized and interpreted
Radiology: Image Personally Visualized and interpreted
Labs: Labs Reviewed by me
Old Records: Reviewed
[2024-07-31 13:14] LABS: Troponin I 0.058 ng/ml
[2024-07-31] MEDS: NSS 1000 IV ×2 (14:02→20:24)
--- NOTE | 2024-07-31 15:56 | W.PN.UPDATE ---
Update Note
Progress Note Update
seen and examined
hyppoxic on supplemental o2
very lethargic, does not stay awake
hypotensive
giving fluid, continue o2, conitnue tamiflu
placed icu consult for eval
changed dispo to imu.
low threshold to upgrade to icu for intubation and pressor support
--- NOTE | 2024-07-31 16:28 | CON.PUL ---
Consultation
Consultation Request
Date/Time Consultation Requested: 07/31/2024 - 155
Date/Time Consultation Performed: 07/31/2024 - 1620
Requesting Provider: Dr. Garcia
Performing Provider: Dr. March
Reason for Consultation: Hypoxa/Bradycardic/Hypotensive
Medical History
-
Chief Complaint: SOB
History of Present Illness:
83-year-old female former tobacco smoker with past medical history of chronic HFpEF, hiatal hernia, GERD, hypertension, hyperlipidemia, DIEGO intolerant to CPAP, COPD, CAD s/p PCI, history of Tari-en-Y gastric bypass, colonic polyps, history of
diverticulosis, CKD, A-fib on Eliquis, history of COVID-19 (11/2021), history of right breast melanoma, history of PE (03/2012 1), fibromyalgia, iron deficiency anemia, external hemorrhoids, lumbar DDD + depression who presents from home with
shortness of breath since Tuesday (07/29/2024). Also endorses occasional abdominal pain x 1 day. History obtained from ER documentation as patient is lethargic and unable to assist with HPI or ROS. Patient's been feeling general malaise with
sneezing and cough for several days. She became increasingly short of breath on the evening prior to arrival and called 911. She says that multiple family was have the flu. She has a cough productive of yellow mucus. She is apparently lost about
90 pounds over the past year, unclear etiology. Initially, patient was febrile to 102.3 �F, pulse rate 108, reading at 26 breaths minute, BP 139/58 and saturating 87% on room air. Saturations improved to 94-95% with 4 L/min nasal cannula applied.
In the petroleum sampler hours of 07/31/2024, her blood pressure started to drop to systolic in the 80s, and heart rate also dropped throughout the day to the 40-50s. Labs showed initial troponin 0.1, proBNP 5730, and COVID-19 antigen negative. Flu
swab was positive for influenza A. CXR showed no acute cardiopulmonary process. She was given Tamiflu, DuoNebs, aspirin, Tylenol and Solu-Medrol. She was admitted to the IMU for further care and pulmonary/utilities ground worker service is now consulted for
additional management/recommendations.
When I saw the patient she was resting in bed in no acute distress, lethargic but easily arousable to voice and following commands but then quickly falls back asleep. Currently on 4 L/min and saturating 96%. Heart rate 48 and BP 82/50. She denies
chest pain, shortness of breath, headache, nausea, fevers or chills. She mainly says that she is tired and she is not sure why. She has inadequate IV access with one 20-gauge IV in the right AC.
Patient follows with us in the [facility] office with last visit on 06/19/[address] Torres. She has a history of COPD and is on Xopenex + budesonide BID. She had complained of ongoing, chronic shortness of breath at that visit which seem to have
worsened since she contracted COVID-19 in November 2021. She also has a history of asthma and has tried low-dose prednisone 5 mg the past with no improvement so was weaned off. She has a history of smoking, smoked about 1/4 pack/day on average from age
12 to age 50. She has a history of sleep apnea but did not tolerate CPAP. She did undergo gastric bypass surgery but was not interested in retesting for DIEGO. Apparently she had left AMA after previous hospital stay while trying to set her up for
home oxygen. Nocturnal oximetry has been difficult for her to complete. Last full PFT performed on 01/13/2024 showing a severe restrictive lung defect with severe gas exchange capacity defect which is normal when accounting for alveolar volume
involved in gas exchange (DLco: 30%, DLco/VA: 73%). Prior spirometry studies did show evidence of moderate COPD. She was told to follow-up in September 2024.
PMHx: Depression, lumbar degenerative disc disease, hiatal hernia, tortuous esophagus, fibromyalgia, arthritis, external hemorrhoids, GERD, iron deficiency anemia, hypertension, history of basal cell carcinoma, COPD, DIEGO intolerant to CPAP,
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
colonic polyps, liver steatosis with fibrosis, diverticulosis, PUD, Thakkar's esophagus, CKD, A-fib on Eliquis, history of COVID-19 (11/2021), chronic HFpEF, history of ischemic nephropathy with renal sclerosis, melanoma to right breast, history of
PE (03/2021)
PSHx: Left breast biopsy, appendectomy, D&C, lesions removed from tongue, artificial eardrum implantation, bowel obstruction with internal hernia repair (at [place]), right inguinal hernia repair, right ankle fracture repair, incisional hernia
repair, tonsillectomy, gastric bypass (1998), ruptured ectopic surgery, right lower lid removal of cancerous lesion with repair using skin graft, Mohs surgery, left knee replacement, ablation, cardioversion
Past Medical History
Past Medical History: Other (Above as per HPI)
Past Surgical History: Other (Above as per HPI)
Social History
Tobacco: Former Smoker ([id number] smoking history, quit >25 years ago)
Alcohol: None
Drug: None
Family History
Family History: CAD (Father, mother, paternal grandfather + maternal grandmother), Cancer (Father: Liver cancer; maternal grandfather: Gastric cancer) and Other (Father: Alcoholism; mother: History of stroke + osteoporosis)
Allergies / Home Medications
Allergies
Allergy/AdvReac Type Severity Reaction Status Date / Time
bupropion [From Wellbutrin] Allergy Rash Verified 05/08/24 09:59
iron [From Venofer] Allergy FELL ILL Verified 05/08/24 09:59
REQUIRING
HOSPITALIZATION
celecoxib AdvReac Nausea Verified 05/08/24 09:59
Influenza Virus Vaccines AdvReac Vomiting Verified 05/08/24 09:59
x3 days
Home Medications
�Medication �Instructions �Recorded �Confirmed �Last Taken �Type
dapagliflozin propanediol 10 mg 10 mg PO DAILY 06/12/23 07/31/24 01/26/24 06:00 History
tablet (Farxiga)
esomeprazole magnesium 40 mg 40 mg PO DAILY GERD 06/12/23 07/31/24 01/23/24 History
capsule,delayed release (Nexium)
levalbuterol tartrate 45 1 puff inhalation R Q6HPRN PRN sob 06/12/23 07/31/24 01/27/24 05:00 History
mcg/actuation aerosol inhaler
(Xopenex HFA)
budesonide 0.5 mg/2 mL suspension 0.5 mg inhalation R BID 11/09/23 07/31/24 01/27/24 05:00 History
for nebulization Lung/Breathing Issues
furosemide 40 mg tablet 40 mg PO DAILY Fluid 11/09/23 07/31/24 01/26/24 06:00 History
Retention/Swelling
levalbuterol HCl 0.63 mg/3 mL 0.63 mg inhalation R BID 11/09/23 07/31/24 01/27/24 05:00 History
solution for nebulization Lung/Breathing Issues
cholecalciferol (vitamin D3) 25 25 mcg PO DAILY 01/10/24 07/31/24 01/20/24 History
mcg (1,000 unit) tablet (Vitamin
D3)
sotalol 80 mg tablet 40 mg PO BID 01/10/24 07/31/24 01/27/24 05:00 History
apixaban 2.5 mg tablet (Eliquis) 2.5 mg PO BID 07/31/24 07/31/24 Unknown History
diltiazem HCl 180 mg capsule,24 180 mg PO DAILY 07/31/24 Unknown History
hr,extended release
fluticasone furoate 200 1 inh inhalation R DAILY 07/31/24 07/31/24 Unknown History
mcg-vilanterol 25 mcg/dose
inhalation powder (Breo Ellipta)
folic acid 1 mg tablet 1 mg PO DAILY 07/31/24 Unknown History
hydrocodone 5 mg-acetaminophen 325 1 tab PO Q6HPRN PRN severe Pain 07/31/24 07/31/24 Unknown History
mg tablet
methotrexate sodium 2.5 mg tablet 0 mg PO QWEEK 07/31/24 Unknown History
potassium chloride 20 mEq 20 meq PO DAILY 07/31/24 Unknown History
tablet,extended release
prednisone 10 mg tablet 10 mg PO BID 07/31/24 Unknown History
Review of Systems
-
Unable to Obtain full review of systems at this time due to: Acuity
Vitals / Labs / Diagnostic Testing
Vital Signs
Temp Pulse Resp BP Pulse Ox
98.6 F 48 25 81/46 96
07/31/24 12:06 07/31/24 16:00 07/31/24 16:00 07/31/24 15:49 07/31/24 16:00
Lab Data
07/31/24 04:14
07/31/24 04:14
Microbiology
07/31/24 04:14 Nasal Swab Influenza Types A & B (VIKAS) - Final
Influenza A Positive, NAAT
Diagnostic Testing:
Physical Exam
-
HEENT: Normocephalic and Anicteric
Cardiovascular: S1/S2, Peripheral Edema (negative) and Other (Bradycardic)
Respiratory: Wheeze ([place] upon expiration bilaterally), Rales (negative), Rhonchi (negative) and Non-Labored Respirations
GI: Soft, Non Distended, Non Tender and Normal Bowel Sounds
Neurology: Tremors (negative) and Other (Lethargic but easily arousable to voice and tactile stimulation and answering questions appropriately, but then quickly falls back asleep)
Skin: Warm and Dry
General: Respiratory Distress (negative), Comfortable, Fever and Chills (negative)
Assessment
-
Assessment: 83-year-old female former tobacco smoker with past medical history of chronic HFpEF, hiatal hernia, GERD, hypertension, hyperlipidemia, DIEGO intolerant to CPAP, COPD, CAD s/p PCI, history of Tari-en-Y gastric bypass, colonic polyps,
history of diverticulosis, CKD, A-fib on Eliquis, history of COVID-19 (11/2021), history of right breast melanoma, history of PE (03/2012 1), fibromyalgia, iron deficiency anemia, external hemorrhoids, lumbar DDD + depression who presents from home
with shortness of breath since Tuesday (07/29/2024). Also endorses occasional abdominal pain x 1 day. History obtained from ER documentation as patient is lethargic and unable to assist with HPI or ROS. Patient's been feeling general malaise with
sneezing and cough for several days. She became increasingly short of breath on the evening prior to arrival and called 911. She says that multiple family was have the flu. She has a cough productive of yellow mucus. She is apparently lost about
90 pounds over the past year, unclear etiology. Initially, patient was febrile to 102.3 �F, pulse rate 108, reading at 26 breaths minute, BP 139/58 and saturating 87% on room air. Saturations improved to 94-95% with 4 L/min nasal cannula applied.
In the petroleum sampler hours of 07/31/2024, her blood pressure started to drop to systolic in the 80s, and heart rate also dropped throughout the day to the 40-50s. Labs showed initial troponin 0.1, proBNP 5730, and COVID-19 antigen negative. Flu
swab was positive for influenza A. CXR showed no acute cardiopulmonary process. She was given Tamiflu, DuoNebs, aspirin, Tylenol and Solu-Medrol. She was admitted to the IMU for further care and pulmonary/utilities ground worker service is now consulted for
additional management/recommendations.
Chronic conditions [place]: Depression, lumbar degenerative disc disease, hiatal hernia, tortuous esophagus, fibromyalgia, arthritis, external hemorrhoids, GERD, iron deficiency anemia, hypertension, history of basal cell carcinoma, COPD, DIEGO
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
procedure, adenomatous colonic polyps, liver steatosis with fibrosis, diverticulosis, PUD, Thakkar's esophagus, CKD, A-fib on Eliquis, history of COVID-19 (11/2021), chronic HFpEF, history of ischemic nephropathy with renal sclerosis, melanoma to
right breast, history of PE (03/2021)
Impression:
#Acute respiratory failure with hypoxia due to influenza A pneumonia
#Bradycardia with hypotension likely due to sepsis in setting of sotalol usage (half-life: 12 hours) + cardizem CD
#Altered mental status likely due to hypotension with sepsis
#Acute COPD/asthma exacerbation
#Elevated troponin (peaked at 0.1 on 07/31/2024) likely due to demand ischemia with type II NV
#Elevated proBNP
#Chronic HFpEF
#History of kyphoscoliosis
#DIEGO intolerant to CPAP
#A-fib on Eliquis; currently in NSR
#GERD continued on Nexium
#Restrictive lung disease (severe with T% predicted/2.6 L via spirometry from 06/19/2024)
Plan:
- Admit to IMU
- Continue systemic steroids and considering that the patient is hypotensive with sepsis, I will transition her from Solu-Medrol to hydrocortisone 50mg IV q6hr --> wean as she clinically improves
- While on high dose steroids, maintain euglycemia with goal BG 140-180
- She takes Xopenex and budesonide at home and this should be continued
- Given that she is bradycardic, I will use Duonebs for today, and then switch to xopenex and atrovent tomorrow (08/01/2024)
- Maintain SpO2 88-95% with supplemental oxygen and titrate down as tolerated
- Continue mucolytics
- Unclear if she needs ABx --> continue empiric Zosyn for now
- Check blood culture, and if she can produce a decent sample then also check sputum culture
- If she remains afebrile with negative cultures for the next 48 hours then would consider stopping antibiotics altogether or at least doing shorter course with narrowed antibiotics
- Check procal for trending power
- Tamiflu x 5 days
- Check EKG to assure no AV-block
- Hold sotalol, and hold any other BB or CCB at this time (takes Cardizem CD 180mg at home)
- Consult cardiology
- Starting levophed to help assist with BP and HR
- Goal HR >50 and <110
- Keep MAP>65
- Check echo (last in 06/2023 with normal LV size/systolic function with normal RV size/systolic function and no significant pulmonary hypertension at that time)
- Check TSH with reflex to fT4
- Replete electrolytes with K>4, Mg>2
- Maintain MAP>65
- Start low-dose levophed --> can use up to 8mcg/min in the IMU; if Levophed requirements continue to rise and she will need to be transferred to the ICU
- Her proBNP was 5730 so she was diuresed with 20 mg of Lasix however given that she is hypotensive she is currently off of diuretics and is receiving a 500 cc bolus of NS 0.9% and started on maintenance fluids with NS 0.9% at 100 cc/h
- Continue to cautiously administer IV fluids but monitor respiratory status and oxygen requirements as this may need to be stopped if she has signs/symptoms of volume overload
- Trend BNP
- She is lethargic but easily arousable and able to hold a conversation but then admits that she is very tired and will quickly fall back asleep
- Cautiously allow her to have PO diet, but do not allow her to have food unless she is wide-awake with low risk of aspiration
- Continue with aspiration precautions, keep HOB >30-45�
- Troponin was mildly elevated, peaked today at 0.1. No longer need to continue trending given it has started to trend downwards
- Trend H/H and transfuse if needed to keep Hb>7g/dL; keep plt>20k, unless there is concern for bleeding then keep plt>50k
- Once she awakens more, then encourage incentive spirometer 10x per hour for at least 4 hrs a day
- Continue PPI (home med)
- DVT ppx: Eliquis
IV access: 20 G PIV in RUE --> PICC line ordered
Public Health Clinical Nurse Specialist/pulmonary service will continue to follow along. Of note, she should continue following up with us after discharge as she follows with Dr. Torres. Last visit was on 06/19/2024, and she has an upcoming appointment on 09/18/2024. She
may need a sooner appointment depending how of this hospitalization progresses.
Critical care statement: A total of 44 minutes of critical care time was provided for this patient today. This includes management of unstable vital signs, evaluation of the patient at bedside, reviewing the patient's pertinent medical records
including radiographs, microbiology, laboratory evaluations, and discussion with primary team, consultants, pharmacy, nutrition, physical therapy, case management, charge nurse, critical care nursing, and respiratory therapy.
Data:
CXR 07/31/2024: No active cardiopulmonary disease.
[2024-07-31] MEDS: PULMICORT 0.5 MG INH (17:33)
[2024-07-31] MEDS: SOLU-CORTEF 50 MG IV (17:59)
[2024-07-31] MEDS: LEVOPHED 250 IV (18:10)
[2024-07-31 18:42] LABS: Troponin I 0.027 ng/ml
[2024-07-31 18:43] LABS: Procalcitonin 0.15 ng/ml (0.0-0.25)
[2024-07-31 19:01] LABS: TSH Reflex To Free T4 0.35 uIU/ml (0.47-4.68)
[2024-07-31 19:27] LABS: Free T4 1.52 ng/dl (0.78-2.19)
[2024-07-31] MEDS: TAMIFLU 30 MG PO (20:24)
[2024-08-01] VITALS (19 sets, daily range): BP systolic 96–150; BP diastolic 54–87; BMI 24.5
[2024-08-01] MEDS: SOLU-CORTEF 50 MG IV ×5 (00:27→23:56)
--- NOTE | 2024-08-01 02:49 | PTCARENOTE ---
Addendum entered by Nusrat Byrne RN 08/01/24 04:01:
Pt did inform this RN she has been feeling down and depressed at times in the past months/weeks. Emotional support given, will pass on in report and documented.
Original Note:
Pt arrived from ED at shift change, 1900. Pt on Levo at 2mcg/min. Pt SPO2 96% on 4L nc. Pt was able to be weaned off Levo during the night per protocol (see work list). Pt HR remaining bradycardic into the 40's at times, CARE SPECIALIST aware aware. Pt had no
complaints at this time. Call willett within reach. Assessment care and vitals as charted.
[2024-08-01] MEDS: ZOSYN 50 IV ×4 (03:02→19:47)
[2024-08-01 05:53] LABS: Hematocrit 32.9 % (37.0-47.0); Hemoglobin 10.5 g/dL (12.0-16.0); Mean Corp Hgb Conc. 31.9 g/dL (33.0-37.0); Mean Corpuscular Hgb 29.7 pg (27.0-31.0); Mean Corpuscular Volume 93.2 fL (81.0-99.0); Mean Platelet Volume 11.3 fL (7.4-10.4); Platelet Count 153 10^3/uL (130-400); Red Blood Cell Count 3.53 10^6/uL (4.20-5.40); Red Cell Dist. Width 17.2 % (11.5-14.5); White Blood Cell Count 4.6 10^3/uL (4.8-10.8)
[2024-08-01 05:58] LABS: Blood Urea Nitrogen 24 mg/dl (7-17); Calcium 7.9 mg/dl (8.4-10.2); Carbon Dioxide 27 mmol/L (22-30); Chloride 104 mmol/L (98-107); Estimated Creatinine Clearance 41 ml/min; Glucose 113 mg/dl (70-99); HDL Cholesterol 55 mg/dl; LDL Cholesterol, Calculated 70 mg/dl; Phosphorus 4.6 mg/dl (2.5-4.5); Sodium 137 mmol/L (135-145); Total Cholesterol 147 mg/dl (50-199); Triglyceride 114 mg/dl (10-149); Very Low Density Lipoprotein 22 mg/dl (0-30); eGFR > 60.00
[2024-08-01 06:06] LABS: NT-proBNP 2100 pg/ml
[2024-08-01] MEDS: NSS 1000 IV (07:31)
[2024-08-01] MEDS: PULMICORT 0.5 MG INH ×2 (07:36→20:11)
[2024-08-01] MEDS: ATROVENT NEBULES 0.5 MG INH ×3 (07:36→20:11)
[2024-08-01] MEDS: XOPENEX 1.25 MG INHALANT SOLUTION INH ×3 (07:36→20:11)
--- NOTE | 2024-08-01 07:36 | W.PN.HOSP.TC ---
Documented by User: Kayla Valera DO, Resident 08/01/24 08:14
Assessment / Plan
Assessment / Plan
Ms. Taryn Wisdom is an 83yoF pmh HFpEF (EF 55-60%), afib on eliquis, HTN, COPD, Stage III CKD admitted for influenza.
Sepsis secondary to Influenza A Pneumonia
Acute Hypoxemic Respiratory Insufficiency secondary to pneumonia
- SIRS criteria met: fever, tachypnea, tachycardia
- flur A positive
- CXR: interstitial pneumonia
- tamiflu
- abx to cover possible secondary infection
- Supportive care with O2, albuterol MDI, chest PT, mucolytics, etc.
- Patient is unvaccinated host.
- blood cx, sputum cx pending
Abnormal Troponin
ASCVD
- Suspect non-ischemic myocardial injury secondary to acute illness / sepsis.
- ECG: no acute ischemia
- Cont ASA
- troponins downtrending
- Cardiology consulted
- Continue home diltiazem, sotalol
Anemia
- drop from 14.1 to 10.5 overnight
- monitor for bleeds
- transfuse Hb<7
Abnormal lab value
- TSH 0.35
Chronic HFpEF
- Echo 06/2023: EF 55-60%
- Unlikely she is in acute exacerbation
- hold furosemide, SGLT2i
- Follow I/Os, daily weights, etc.
- keep K>4, Mg>2
- trend BNP
- repeat echo
- Cardiology consulted
Persistent Atrial Fibrillation
- Continue home sotalol.
- Continue home Eliquis
COPD with Acute Exacerbation
- Likely secondary to influenza pneumonia
- Continue with IV steroids for now and taper quickly if able.
- Albuterol MDI.
- Wean oxygen with goal SpO2 88-92%
CKD III
- Stable. Renal function at baseline.
History of DVT / PE
- Continue Eliquis.
Diet: cholesterol lowering
DVT ppx: eliquis
Code Status: Full code
Subjective/Interval History
-
Date of Service: August 01, 2024
Ms. Taryn Wisdom is an 83yoF pmh HFpEF (EF 55-60%), afib on eliquis, HTN, COPD, Stage III CKD, fibromyalgia admitted for influenza. She has been dyspneic for the past few days. She was exposed to family members who tested positive for flu. She was
unable to get the influenza vaccine as she is allergic to it. Pt upgraded to IMU yesterday. She was started on a levophed drip.
Objective Data
-
Labs:
Laboratory Results
08/01/24
05:27
WBC 4.6 L
Hgb 10.5 L D
Hct 32.9 L
Plt Count 153 D
Sodium 137
Potassium 4.0
Chloride 104
Carbon Dioxide 27
BUN 24 H
Creatinine 0.9
Glucose 113 H
Calcium 7.9 L
Vital Signs:
Vital Signs
Temp Pulse Resp BP Pulse Ox
96.7 F L 61 19 137/83 98
08/01/24 03:22 08/01/24 06:00 08/01/24 06:00 08/01/24 06:00 08/01/24 06:00
I&O
07/31/24 08/01/24 08/02/24
06:59 06:59 06:59
Intake Total 1805 / 1805
Output Total 500 / 500
Balance 1305 / 1305

Documented by User: Lino Garcia MD 08/01/24 15:53
Today's Communication/Plan
-
Assessment / Plan
Assessment / Plan
Ms. Taryn Wisdom is an 83yoF pmh HFpEF (EF 55-60%), afib on eliquis, HTN, COPD, Stage III CKD admitted for influenza.
Sepsis secondary to Influenza A Pneumonia
Acute Hypoxemic Respiratory Insufficiency secondary to pneumonia
- SIRS criteria met: fever, tachypnea, tachycardia
- flur A positive
- CXR: interstitial pneumonia
- tamiflu
- abx to cover possible secondary infection
- Supportive care with O2, albuterol MDI, chest PT, mucolytics, etc.
- Patient is unvaccinated host.
- blood cx, sputum cx pending
-Wean oxygen as tolerated
Abnormal Troponin
ASCVD
- Suspect non-ischemic myocardial injury secondary to acute illness / sepsis.
- ECG: no acute ischemia
- Cont ASA
- troponins downtrending
- Cardiology consulted
- Cardizem held, sotalol held as she is bradycardic with prolonged QTc now resolved
Anemia
- drop from 14.1 to 10.5 overnight
- monitor for bleeds
- transfuse Hb<7
Abnormal lab value
- TSH 0.35
Chronic HFpEF
- Echo 06/2023: EF 55-60%
- Unlikely she is in acute exacerbation
- hold furosemide, SGLT2i
- Follow I/Os, daily weights, etc.
- keep K>4, Mg>2
- trend BNP
- repeat echo
- Cardiology consulted
Persistent Atrial Fibrillation
- Initially sotalol was continued however believed to have interacted with Tamiflu to cause a prolongation QTc. Therefore sotalol has been held by cardiology
- Continue home Eliquis
COPD with Acute Exacerbation
- Likely secondary to influenza pneumonia
- Continue with IV steroids for now and taper quickly if able.
--Would plan to start tapering Solu-Cortef to Methylpred in the next 24 hours
- Albuterol MDI.
- Wean oxygen with goal SpO2 88-92%
CKD III
- Stable. Renal function at baseline.
History of DVT / PE
- Continue Eliquis.
Diet: cholesterol lowering
DVT ppx: eliquis
Code Status: Full code
Anticipated Discharge: 24 - 48 hours
Subjective/Interval History
-
Date of Service: August 01, 2024
Ms. Taryn Wisdom is an 83yoF pmh HFpEF (EF 55-60%), afib on eliquis, HTN, COPD, Stage III CKD, fibromyalgia admitted for influenza. She has been dyspneic for the past few days. She was exposed to family members who tested positive for flu. She was
unable to get the influenza vaccine as she is allergic to it. Pt upgraded to IMU yesterday. She was started on a levophed drip.
Attending attestation in bold
Seen and examined. Complete turnaround. Awake conversant on 2 L off pressor support. In good spirits and laughing and smiling
Physical Exam
-
General: Well Developed, Well Nourished and No Apparent Distress
HEENT: Normocephalic
Respiratory: Crackles and Non Labored Respirations
Cardiac: S1/S2
GI: Soft, Nontender, Nondistended and Normal Bowel Sounds
Neuro: Awake, Alert, Oriented and AO x 3
Psych: Calm
[2024-08-01] MEDS: TAMIFLU 30 MG PO ×2 (08:21→19:47)
[2024-08-01] MEDS: MUCINEX 600 MG PO ×2 (08:21→19:47)
[2024-08-01] MEDS: ELIQUIS 2.5 MG PO ×2 (08:21→19:47)
--- NOTE | 2024-08-01 09:00 | PTCARENOTE ---
Patient received from night baker. Patient resting comfortably in bed. AAO, VSS. No events noted overnight. No complaints of pain at this time. Patient was on Levo gtt, was taken off overnight and BP's stable and MAP >65. Remains on IVF @
100mL/hr. Continuing ABX and Tamiflu. Continuing steroids. No test scheduled for today. Call willett in reach.
--- NOTE | 2024-08-01 12:37 | W.PN.CD ---
Today's Communication / Plan
-
conitnue to hold sotolol
continue to hold lasix and farxiga
will follow
Impression / Plan
-
Abnormal troponin - acute non ischemic myocardial injury in the setting of acute influenza A, SOB.
- peak trop 0.100.
- denies chest pain, EKG without ischemia.
- treat influenza.
- no need for ASA as she is on Eliquis for Afib/PE history.
Sepsis with shock due to Influenza A
-improving
-levophed weaned last night
- Tamiflu per hospitalist.
- supportive care.
Afib - persistent, in NSR typically on Sotalol 40mg BID,
-became bradycardic and QT prolonged ---sotalol held
-QT better today off sotalol, will need to monitor rhythm. May be able to reload as she improves.
- continue Eliquis 2.5mg BID. [id number] VASc score is 5.
- s/p Afib and aflutter ablation 10/2022.
HFpEF - chronic.
- hypotension in the setting of sepsis, acute Flu A, SOB, viral PNA.
- hypotension noted so holding Lasix and Farxiga at this time.
- she has weight loss this year of 90 lbs, weight at home is 139 lbs.
HTN - mild hypotension in the setting of sepsis/Flu A/viral PNA.
- monitor.
Subjective:
She is feeling much better, still coughing but has an appetite
Physical Exam
Vital Signs/Labs
Vital Signs
Temp Pulse Resp BP Pulse Ox
98.0 F 61 19 137/83 96
08/01/24 11:30 08/01/24 06:00 08/01/24 06:00 08/01/24 06:00 08/01/24 10:22
07/31/24 08/01/24 08/02/24
06:59 06:59 06:59
Actual Weight 62.6 kg 64.6 kg
08/01/24 05:27
08/01/24 05:27
Magnesium 2.0 mg/dl (1.6-2.3) 08/01/24 05:27
Triglycerides 114 mg/dl (10-149) 08/01/24 05:27
LDL Cholesterol, Calc 70 mg/dl 08/01/24 05:27
VLDL Cholesterol, Calc 22 mg/dl (0-30) 08/01/24 05:27
HDL Cholesterol 55 mg/dl 08/01/24 05:27
Free T4 1.52 ng/dl (0.78-2.19) 07/31/24 18:01
07/31/24 08/01/24
04:14 05:27
Xxe-M-Sccjeexhwfo Pept 5730 2100
LAB Results
07/31/24 07/31/24 07/31/24
04:14 06:35 12:29
Troponin I 0.052 H* 0.100 H* D 0.058 H* D
07/31/24
18:01
Troponin I 0.027 D
Physical Exam
Constitutional: No acute distress
Cardiovascular: Rhythm & rate is regular, Pedal edema is absent, JVD pressure is normal, Systolic murmur absent and Diastolic murmur absent
Respiratory: Respiratory effort normal, Crackles Absent and Wheeze Present (mild diffusely)
Neuro/Psych: AO x 3
Data Reviewed
-
Date of Service: August 01, 2024
Medical Decision Making: Review of Case with other Provider (dr vigil will hold sotolol for now)
EKG: Tracing Personally Visualized and interpreted (sb with prolonged qt, pc, rate dropped and qt prolong when compared to admission. repeat ecg qt improved)
--- NOTE | 2024-08-01 13:44 | W.PN.PUL3 ---
Today's Communication / Plan
-
Discontinue IV fluids
Continue nebulizer therapy
Continue budesonide
Taper hydrocortisone to baseline of 10 mg of prednisone in the next 48 hours
Increase activity as able
Wean off oxygen
Continue court recording monitor
Assessment
-
Assessment: 83-year-old female former tobacco smoker with past medical history of chronic HFpEF, hiatal hernia, GERD, hypertension, hyperlipidemia, DIEGO intolerant to CPAP, COPD, CAD s/p PCI, history of Tari-en-Y gastric bypass, colonic polyps,
history of diverticulosis, CKD, A-fib on Eliquis, history of COVID-19 (11/2021), history of right breast melanoma, history of PE (03/2012 1), fibromyalgia, iron deficiency anemia, external hemorrhoids, lumbar DDD + depression who presents from home
with shortness of breath since Tuesday (07/29/2024). Also endorses occasional abdominal pain x 1 day. History obtained from ER documentation as patient is lethargic and unable to assist with HPI or ROS. Patient's been feeling general malaise with
sneezing and cough for several days. She became increasingly short of breath on the evening prior to arrival and called 911. She says that multiple family was have the flu. She has a cough productive of yellow mucus. She is apparently lost about
90 pounds over the past year, unclear etiology. Initially, patient was febrile to 102.3 �F, pulse rate 108, reading at 26 breaths minute, BP 139/58 and saturating 87% on room air. Saturations improved to 94-95% with 4 L/min nasal cannula applied.
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 Labs showed initial troponin 0.1, proBNP 5730, and COVID-19 antigen negative. Flu
swab was positive for influenza A. CXR showed no acute cardiopulmonary process. She was given Tamiflu, DuoNebs, aspirin, Tylenol and Solu-Medrol. She was admitted to the IMU for further care and pulmonary/clinical courier service is now consulted for
additional management/recommendations.
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
procedure, adenomatous colonic polyps, liver steatosis with fibrosis, diverticulosis, PUD, Thakkar's esophagus, CKD, A-fib on Eliquis, history of COVID-19 (11/2021), chronic HFpEF, history of ischemic nephropathy with renal sclerosis, melanoma to
right breast, history of PE (03/2021)
Impression:
#Acute respiratory failure with hypoxia due to influenza A pneumonia
#Bradycardia with hypotension likely due to sepsis in setting of sotalol usage (half-life: 12 hours) + cardizem CD
#Altered mental status likely due to hypotension with sepsis
#Acute COPD/asthma exacerbation
#Elevated troponin (peaked at 0.1 on 07/31/2024) likely due to demand ischemia with type II [place]
#Elevated proBNP
#Chronic HFpEF
#History of kyphoscoliosis
#DIEGO intolerant to CPAP
#A-fib on Eliquis; currently in NSR
#GERD continued on Nexium
#Restrictive lung disease (severe with T% predicted/2.6 L via spirometry from 06/19/2024)
Plan:
Clinically improved, okay to transition to telemetry.
-Vasopressors discontinued. Hemodynamics improved. Remains relatively bradycardic.
Okay to taper down steroids in the next 24/48 hours. And return to 10 mg daily.
-
Rhonchi on exam. Not bronchospastic. Complaining of coughing.
-Continue nebulizer therapy: Atrovent/Xopenex and budesonide.
Xopenex and budesonide - home regimen
- Maintain SpO2 88-95% with supplemental oxygen and titrate down as tolerated-currently on 3 L. Wean off as able
- Continue mucolytics/antitussives.
-Doubt bacterial pneumonia, symptoms started subacutely on Tuesday, unclear if she needs ABx (no leukocytosis/procalcitonin negative)--> continue empiric Zosyn for now
-Blood culture pending
-Has not been able to provide a sputum
-If remains afebrile and all cultures negative discontinue antibiotics 08/02/2024
- Tamiflu x 5 days
-No longer hypotensive-vasopressors discontinued.
-Troponin leak: Nonischemic
-EKG without AV block.
- Hold sotalol, and hold any other BB or CCB at this time (takes Cardizem CD 180mg at home)
-Defer further management to cardiology.
-Discontinue level
- Check echo, pending (last in 06/2023 with normal LV size/systolic function with normal RV size/systolic function and no significant pulmonary hypertension at that time)
- Check TSH low but T4 normal. Sick euthyroid
- Replete electrolytes with K>4, Mg>2
-Discontinue IV fluids. Encourage oral hydration.
-Mental status back to baseline. Strong cough effort. Initially lethargic. Likely due to acute illness. No need for ABG. Does have chronic hypercapnia on ABG.
- Trend H/H and transfuse if needed to keep Hb>7g/dL; keep plt>20k, unless there is concern for bleeding then keep plt>50k
-Encouraged incentive spirometry
- Continue PPI (home med)
- DVT ppx: Eliquis
Patient to be transferred to telemetry. Pulmonary will follow
-
Invoicing Specialist/pulmonary service will continue to follow along. Of note, she should continue following up with us after discharge as she follows with Dr. Torres. Last visit was on 06/19/2024, and she has an upcoming appointment on 09/18/2024. She
may need a sooner appointment depending how of this hospitalization progresses.
Critical care statement: A total of 44 minutes of critical care time was provided for this patient today. This includes management of unstable vital signs, evaluation of the patient at bedside, reviewing the patient's pertinent medical records
including radiographs, microbiology, laboratory evaluations, and discussion with primary team, consultants, pharmacy, nutrition, physical therapy, case management, charge nurse, critical care nursing, and respiratory therapy.
Data:
CXR 07/31/2024: No active cardiopulmonary disease.
Subjective Data
-
Date of Service:
Date of Service: August 01, 2024
Chief Complaint: Pulmonary Follow Up (Acute hypoxemic respiratory failure due to influenza A.)
Review of Systems
Cardiopulmonary: Dyspnea and Dyspnea on Exertion
GI: Abdominal Pain (n) and Nausea (n)
Objective Data
Data Reviewed
Vital Signs / I&O / Oxygen:
Vital Signs
Temp Pulse Resp BP Pulse Ox
98.0 F 61 19 137/83 96
08/01/24 11:30 08/01/24 06:00 08/01/24 06:00 08/01/24 06:00 08/01/24 10:22
Intake and Output
07/31/24 08/01/24 08/02/24
06:59 06:59 06:59
Intake Total 1805 / 1805
Output Total 500 / 500
Balance 1305 / 1305
SaO2 96
Nasal Cannula flow liters per 2
minute
Physical Exam
General: Comfortable
HEENT: Normocephalic
Cardiovascular: S1-S2
Respiratory: Crackles and Non-Labored Respirations
GI: Non Distended
Neurology: Awake, Alert and No Motor Deficits
Skin: Warm
Labs/Micro/Reports
Lab Data
08/01/24 05:27
08/01/24 05:27
Microbiology
07/31/24 04:14 Nasal Swab Influenza Types A & B ([facility]AS) - Final
Influenza A Positive, NAAT
--- NOTE | 2024-08-01 18:17 | PTCARENOTE ---
Report called to Gena LOPEZ, 3W. Patient taken to new room with all known belongings.
--- NOTE | 2024-08-01 18:24 | PTCARENOTE ---
pt transferred from IMU. awake and alert. denies pain. Sinus rhythem, crackles in b/l bases. pt on 02 via N/C. abd soft NT. +1 b/l LE edema +pp. CB in reach pt instructed to use.
[2024-08-02] VITALS (9 sets, daily range): BP systolic 116–178; BP diastolic 76–122; BMI 25.3
[2024-08-02] MEDS: ZOSYN 50 IV ×4 (01:32→20:17)
[2024-08-02] MEDS: TYLENOL 650 MG PO (03:10)
[2024-08-02 05:44] LABS: Hematocrit 34.3 % (37.0-47.0); Hemoglobin 10.7 g/dL (12.0-16.0); Mean Corp Hgb Conc. 31.2 g/dL (33.0-37.0); Mean Corpuscular Hgb 29.7 pg (27.0-31.0); Mean Corpuscular Volume 95.3 fL (81.0-99.0); Mean Platelet Volume 11.2 fL (7.4-10.4); Platelet Count 189 10^3/uL (130-400); Red Cell Dist. Width 17.2 % (11.5-14.5); White Blood Cell Count 7.2 10^3/uL (4.8-10.8)
[2024-08-02 05:51] LABS: Blood Urea Nitrogen 19 mg/dl (7-17); Calcium 8.4 mg/dl (8.4-10.2); Carbon Dioxide 28 mmol/L (22-30); Chloride 104 mmol/L (98-107); Estimated Creatinine Clearance 53 ml/min; Glucose 108 mg/dl (70-99); Sodium 137 mmol/L (135-145); eGFR > 60.00
--- NOTE | 2024-08-02 05:51 | W.PN.UPDATE ---
Update Note
Progress Note Update
hr rate in 140s-160s, BP 135/97 denies chest pain.
Ekg/ a-fib with RVR.
BMP, mag result still pending.
one time order of 5 mg IV Lopressor was given.
[2024-08-02 05:56] LABS: Magnesium 2.2 mg/dl (1.6-2.3)
[2024-08-02] MEDS: LOPRESSOR 5 MG IV (05:56)
[2024-08-02] MEDS: SOLU-CORTEF 50 MG IV ×3 (05:58→17:34)
--- NOTE | 2024-08-02 06:02 | PTCARENOTE ---
Pt went into Afib with RVR around 4:56am after incontinence care was preformed. BLANKET WINDER OPERATOR was notified and RN pursued intervention of Lopressor per BLANKET WINDER OPERATOR and EKG. EKG showed Afib with RVR. Pt's hr was able to stabilize and around 0700 pt started to become
tachy again around 140s.
[2024-08-02] MEDS: MUCINEX 600 MG PO ×2 (07:56→20:16)
[2024-08-02] MEDS: ELIQUIS 2.5 MG PO ×2 (07:57→20:16)
[2024-08-02] MEDS: TAMIFLU 30 MG PO ×2 (07:58→20:16)
--- NOTE | 2024-08-02 08:43 | W.PN.PUL3 ---
Today's Communication / Plan
-
Continue nebulizer therapy
Continue budesonide
Wean down hydrocortisone to baseline of 10 mg of prednisone s/p prednisone taper
Increase activity as able
Wean off oxygen; if resting SaO2 is <96% at rest then check ambulatory pulse oximetry prior to discharge
Continue telemetry monitoring
Pulmonary service will continue to follow along; outpatient pulmonary office follow-up be arranged
Assessment
-
Assessment: 83-year-old female former tobacco smoker with past medical history of chronic HFpEF, hiatal hernia, GERD, hypertension, hyperlipidemia, DIEGO intolerant to CPAP, COPD, CAD s/p PCI, history of Tari-en-Y gastric bypass, colonic polyps,
history of diverticulosis, CKD, A-fib on Eliquis, history of COVID-19 (11/2021), history of right breast melanoma, history of PE (03/2012 1), fibromyalgia, iron deficiency anemia, external hemorrhoids, lumbar DDD + depression who presents from home
with shortness of breath since Tuesday (07/29/2024). Also endorses occasional abdominal pain x 1 day. History obtained from ER documentation as patient is lethargic and unable to assist with HPI or ROS. Patient's been feeling general malaise with
sneezing and cough for several days. She became increasingly short of breath on the evening prior to arrival and called 911. She says that multiple family was have the flu. She has a cough productive of yellow mucus. She is apparently lost about
90 pounds over the past year, unclear etiology. Initially, patient was febrile to 102.3 �F, pulse rate 108, reading at 26 breaths minute, BP 139/58 and saturating 87% on room air. Saturations improved to 94-95% with 4 L/min nasal cannula applied.
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 Labs showed initial troponin 0.1, proBNP 5730, and COVID-19 antigen negative. Flu
swab was positive for influenza A. CXR showed no acute cardiopulmonary process. She was given Tamiflu, DuoNebs, aspirin, Tylenol and Solu-Medrol. She was admitted to the IMU for further care and pulmonary/lock setter service is now consulted for
additional management/recommendations.
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
procedure, adenomatous colonic polyps, liver steatosis with fibrosis, diverticulosis, PUD, Thakkar's esophagus, CKD, A-fib on Eliquis, history of COVID-19 (11/2021), chronic HFpEF, history of ischemic nephropathy with renal sclerosis, melanoma to
right breast, history of PE (03/2021)
Impression:
#Acute respiratory failure with hypoxia due to influenza A pneumonia
#Bradycardia with hypotension likely due to sepsis in setting of sotalol usage (half-life: 12 hours) + cardizem CD - bradycardia now resolved
#Altered mental status likely due to hypotension with sepsis - AMS now resolved
#Acute COPD/asthma exacerbation
#Elevated troponin (peaked at 0.1 on 07/31/2024) likely due to demand ischemia with type II [place]
#Elevated proBNP
#Chronic HFpEF
#History of kyphoscoliosis
#DIEGO intolerant to CPAP
#A-fib on Eliquis; currently in NSR
#GERD continued on Nexium
#Restrictive lung disease (severe with T% predicted/2.6 L via spirometry from 06/19/2024)
Plan:
Clinically improved
- Vasopressors have been discontinued. Hemodynamics improved. Bradycardia now resolved
Okay to taper down steroids --> start prednisone taper tomorrow with eventual return to 10 mg daily
-
Coarse BS/rales on exam. Not bronchospastic. Complaining of coughing that is improved as of 08/02/2024
- Continue nebulizer therapy: Atrovent/Xopenex and budesonide.
Xopenex and budesonide - home regimen
- Maintain SpO2 88-95% with supplemental oxygen and titrate down as tolerated-currently on RA from 3 L/min
- Continue mucolytics/antitussives.
- Doubt bacterial pneumonia, symptoms started subacutely on Tuesday, unclear if she needs ABx (no leukocytosis/procalcitonin negative)--> continue empiric Zosyn for now
- Blood culture drawn 07/31/2024 shows NGTD
- Has not been able to provide a sputum
- If remains afebrile and all cultures negative discontinue antibiotics today
- Tamiflu x 5 days
- No longer hypotensive-vasopressors discontinued.
- Troponin peaked at 0.1 on 07/31/2024; no need to continue trending at this time
- EKG without AV block.
- Sotalol to be deferred to cardiology (also takes Cardizem CD 180mg at home)
- Defer further management to cardiology.
- Echo performed today showing LVEF 55 to 60% with trace AI and no regional WMA; (last echo in 06/2023 with normal LV size/systolic function with normal RV size/systolic function and no significant pulmonary hypertension at that time)
- TSH low but T4 normal. Sick euthyroid --> recheck TFTs as an outpatient in about 6 weeks (defer to PCP)
- Replete electrolytes with K>4, Mg>2
- Encourage oral hydration.
- Mental status back to baseline. Strong cough effort. Initially lethargic. Likely due to acute illness. No need for ABG. Does have chronic hypercapnia on prior ABG, last in June 2023
- Trend H/H and transfuse if needed to keep Hb>7g/dL; keep plt>20k, unless there is concern for bleeding then keep plt>50k
- Encouraged incentive spirometry q1hr while awake
- Continue PPI (home med)
- DVT ppx: Eliquis
Pulmonary service will continue to follow along; given her confusion regarding her inhalers, her discharge home medications should be reconciled with the patient so that she understands which meds to take for which indication.
Of note, she should continue following up with us after discharge as she follows with Dr. Torres. Last visit was on 06/19/2024, and she has an upcoming appointment on 09/18/2024. She may need a sooner appointment depending how of this
hospitalization progresses.
Data:
CXR 07/31/2024: No active cardiopulmonary disease.
Total time spent today was 41 minutes for this encounter. Time includes reviewing laboratory test/imaging results, reviewing pertinent medical records, obtaining and reviewing medical history, performing an appropriate exam, ordering medications,
tests and procedures. Time also includes documentation of this encounter, coordinating patient care and communicating with other healthcare professionals. Total time does not include separately billed tests performed on this date of service.
Subjective Data
-
Date of Service:
Date of Service: August 02, 2024
Chief Complaint: Pulmonary Follow Up (Acute hypoxemic respiratory failure due to influenza A.)
Subjective:
Patient seen and evaluated this morning. She denies shortness of breath currently. She is confused but her home medications about which inhalers to use and also regarding her other home medications. She currently denies chest pain, MAZARIEGOS, abdominal
pain, nausea, vomiting, fevers or chills.
Review of Systems
General: Other (Negative unless mentioned above)
Objective Data
Data Reviewed
Vital Signs / I&O / Oxygen:
Vital Signs
Temp Pulse Resp BP Pulse Ox
97.9 F 116 17 161/81 95
08/02/24 07:10 08/02/24 07:10 08/02/24 07:10 08/02/24 08:23 08/02/24 07:10
Intake and Output
08/01/24 08/02/24 08/03/24
06:59 06:59 06:59
Intake Total 1805 / 1805 960 / 960
Output Total 500 / 500
Balance 1305 / 1305 960 / 960
SaO2 95
Nasal Cannula flow liters per 1
minute
Physical Exam
General: Respiratory Distress (negative), Comfortable, Chills (negative) and Sweats (negative)
HEENT: Normocephalic and Anicteric
Cardiovascular: S1-S2 and Peripheral Edema (negative)
Respiratory: Wheeze (negative), Crackles, Rhonchi (negative), Non-Labored Respirations, Other (Diminished breath sounds bilaterally) and Other (Coarse breath sounds heard bilaterally)
GI: Soft, Non Distended, Non Tender and Normal Bowel Sounds
Neurology: AO x 3 and Tremors (negative)
Skin: Warm, Dry, Cyanosis (negative) and Jaundice (negative)
Labs/Micro/Reports
Lab Data
08/02/24 04:49
08/02/24 04:49
Microbiology
07/31/24 18:01 Blood/Venous Blood Culture - Preliminary
No Growth in 24 hours- Final report to follow
07/31/24 04:14 Nasal Swab Influenza Types A & B ([facility]AS) - Final
Influenza A Positive, NAAT
[2024-08-02] MEDS: XOPENEX 1.25 MG INHALANT SOLUTION INH ×3 (08:50→20:02)
[2024-08-02] MEDS: ATROVENT NEBULES 0.5 MG INH ×3 (08:50→20:02)
[2024-08-02] MEDS: PULMICORT 0.5 MG INH ×2 (08:50→20:02)
--- NOTE | 2024-08-02 13:38 | W.PN.HOSP.TC ---
Today's Communication/Plan
-
Assessment / Plan
Assessment / Plan
Ms. Taryn Wisdom is an 83yoF pmh HFpEF (EF 55-60%), afib on eliquis, HTN, COPD, Stage III CKD admitted for influenza.
Sepsis secondary to Influenza A Pneumonia
Acute Hypoxemic Respiratory Insufficiency secondary to pneumonia
-Improving, now off of o2
- SIRS criteria met: fever, tachypnea, tachycardia
- flur A positive
- CXR: interstitial pneumonia
- tamiflu x5days
- abx to cover possible secondary infection
- Supportive care with O2, albuterol MDI, chest PT, mucolytics, etc.
- Patient is unvaccinated host.
- blood cx, sputum cx pending
- Wean oxygen as tolerated
Abnormal Troponin
ASCVD
- Suspect non-ischemic myocardial injury secondary to acute illness / sepsis.
- ECG: no acute ischemia
- Cont ASA
- troponins downtrending
- Cardiology consulted
- Cardizem held, sotalol held as she is bradycardic with prolonged QTc now resolved
Anemia
- drop from 14.1 to 10.5 overnight
- monitor for bleeds
- transfuse Hb<7
Abnormal lab value
- TSH 0.35
Chronic HFpEF
- Echo 06/2023: EF 55-60%
- Unlikely she is in acute exacerbation
- hold furosemide, SGLT2i
- Follow I/Os, daily weights, etc.
- keep K>4, Mg>2
- trend BNP
- repeat echo
- Cardiology consulted
Persistent Atrial Fibrillation
- Initially sotalol was continued however believed to have interacted with Tamiflu to cause a prolongation QTc. Therefore sotalol has been held by cardiology
- Continue home Eliquis
----Awaiting cardiology recs, she remains asymptomatic.
COPD with Acute Exacerbation
- Likely secondary to influenza pneumonia
- Continue with IV steroids for now and taper quickly if able.
--Would plan to start tapering Solu-Cortef to Methylpred in the next 24 hours
- Albuterol MDI.
- Wean oxygen with goal SpO2 88-92%
CKD III
- Stable. Renal function at baseline.
History of DVT / PE
- Continue Eliquis.
Diet: cholesterol lowering
DVT ppx: eliquis
Code Status: Full code
Anticipated Discharge: > 48 hours
Subjective/Interval History
-
Date of Service: August 02, 2024
seen and examined. no new complaints.
off of o2
still in afib, now rvr
awaiting response from cardiology as sotalol and ccb held due to bradycardia and prolonged qtc n tamilflu
Objective Data
-
Labs:
Laboratory Results
08/02/24
04:49
WBC 7.2
Hgb 10.7 L
Hct 34.3 L
Plt Count 189 D
Sodium 137
Potassium 4.0
Chloride 104
Carbon Dioxide 28
BUN 19 H
Creatinine 0.7
Glucose 108 H
Calcium 8.4
Vital Signs:
Vital Signs
Temp Pulse Resp BP Pulse Ox
98.2 F 103 18 116/79 94
08/02/24 11:10 08/02/24 13:23 08/02/24 13:23 08/02/24 11:10 08/02/24 13:23
I&O
08/01/24 08/02/24 08/03/24
06:59 06:59 06:59
Intake Total 1805 / 1805 960 / 960
Output Total 500 / 500
Balance 1305 / 1305 960 / 960
Physical Exam
-
General: Well Developed and Well Nourished
HEENT: Normocephalic and Atraumatic
Respiratory: Rhonchi
Cardiac: Regular Rhythm and S1/S2
GI: Soft, Nontender, Nondistended and Normal Bowel Sounds
Musculoskeletal: No Clubbing and No Cyanosis
Skin: Warm and Dry
Neuro: Awake, Alert, Oriented and AO x 3
Psych: Calm
--- NOTE | 2024-08-02 14:01 | W.PN.CD ---
Today's Communication / Plan
-
- Digoxin for rate control
- Restart Sotalol 40 mg today. If QTc is acceptable tomorrow, can give PO Digoxin tomorrow as well.
Impression / Plan
-
Abnormal troponin - acute non ischemic myocardial injury in the setting of acute influenza A, SOB.
- peak trop 0.100. Likely due to viral sepsis.
- denies chest pain, EKG without ischemia.
- treat influenza.
- no need for ASA as she is on Eliquis for Afib/PE history.
Sepsis with shock due to Influenza A
-Recovered
-levophed weaned off now.
- Tamiflu per hospitalist.
- supportive care.
Afib - persistent, in NSR typically on Sotalol 40mg BID,
-Came outot sinus on and went back in AF
-AF with RVR now
-Transient bradycardic and QT prolonged ---sotalol held - with RVR, will resume now
-QT better today off sotalol, will need to monitor rhythm. Will resume Sotalol today
- continue Eliquis 2.5mg BID. [id number] VASc score is 5.
- s/p Afib and aflutter ablation 10/2022.
- Ablation included, PVI, PWI and Z line.
- With Sotalol failing, can consider redo ablation with her recurrent rhythms.
- Given her viral infection, can do it as outpatient unless RVR remains a problem then can either do inpatient or start Amiodarone.
- For rate control, will start Digoxin.
HFpEF - chronic.
- hypotension in the setting of sepsis, acute Flu A, SOB, viral PNA.
- hypotension noted so holding Lasix and Farxiga at this time.
- she has weight loss this year of 90 lbs, weight at home is 139 lbs.
HTN
- Recovered.
- monitor.
Subjective:
She is feeling much better, still coughing but has an appetite. RVR with dyspnea.
Physical Exam
Vital Signs/Labs
Vital Signs
Temp Pulse Resp BP Pulse Ox
97.7 F 124 20 123/87 93
08/02/24 13:59 08/02/24 13:59 08/02/24 13:59 08/02/24 13:59 08/02/24 13:59
08/01/24 08/02/24 08/03/24
06:59 06:59 06:59
Actual Weight 64.6 kg 66.905 kg
08/02/24 04:49
08/02/24 04:49
Magnesium 2.2 mg/dl (1.6-2.3) 08/02/24 04:49
Triglycerides 114 mg/dl (10-149) 08/01/24 05:27
LDL Cholesterol, Calc 70 mg/dl 08/01/24 05:27
VLDL Cholesterol, Calc 22 mg/dl (0-30) 08/01/24 05:27
HDL Cholesterol 55 mg/dl 08/01/24 05:27
Free T4 1.52 ng/dl (0.78-2.19) 07/31/24 18:01
07/31/24 08/01/24
04:14 05:27
Wdj-X-Zigdsozigfc Pept 5730 2100
LAB Results
07/31/24 07/31/24 07/31/24
04:14 06:35 12:29
Troponin I 0.052 H* 0.100 H* D 0.058 H* D
07/31/24
18:01
Troponin I 0.027 D
Physical Exam
Constitutional: No acute distress, Comfortable and Confusion
EENT: Anicteric and Moist mucous membranes
Cardiovascular: Rhythm/rate is irregular (RRV to 140s), JVD present and Murmur/rub/gallop absent
Respiratory: Respiratory effort normal and Wheeze Absent
GI: Soft and Non tender
Neuro/Psych: Alert, Oriented and AO x 3
Data Reviewed
-
Date of Service: August 02, 2024
Medical Decision Making: Reviewed Test Results, Test Interpretation and Review of Case with other Provider
EKG: Tracing Personally Visualized and interpreted
Echo: Report Reviewed by me
Medical Tests (PFT, Pathology etc): Discussed with Physician, Discussed with Nurse and Discussed with Patient
Labs: Labs Reviewed by me
Old Records: Reviewed
[2024-08-02] MEDS: LANOXIN 250 MCG IV (14:12)
[2024-08-02] MEDS: BETAPACE 40 MG PO (20:16)
[2024-08-02] MEDS: TUMS CHEWABLE TABLET 200 MG PO (21:08)
[2024-08-03] VITALS (7 sets, daily range): BP systolic 116–164; BP diastolic 78–106; BMI 25.0
[2024-08-03] MEDS: ZOSYN 50 IV ×4 (00:54→20:04)
[2024-08-03] MEDS: SOLU-CORTEF 50 MG IV (00:55)
[2024-08-03 05:29] LABS: Blood Urea Nitrogen 19 mg/dl (7-17); Calcium 8.8 mg/dl (8.4-10.2); Carbon Dioxide 30 mmol/L (22-30); Chloride 102 mmol/L (98-107); Estimated Creatinine Clearance 46 ml/min; Glucose 106 mg/dl (70-99); Potassium 3.5 mmol/L (3.5-5.1); Sodium 138 mmol/L (135-145); eGFR > 60.00
[2024-08-03 06:14] LABS: Hematocrit 37.6 % (37.0-47.0); Hemoglobin 12.1 g/dL (12.0-16.0); Mean Corp Hgb Conc. 32.2 g/dL (33.0-37.0); Mean Corpuscular Hgb 29.4 pg (27.0-31.0); Mean Corpuscular Volume 91.3 fL (81.0-99.0); Mean Platelet Volume 10.7 fL (7.4-10.4); Platelet Count 229 10^3/uL (130-400); Red Blood Cell Count 4.12 10^6/uL (4.20-5.40); Red Cell Dist. Width 16.5 % (11.5-14.5); White Blood Cell Count 9.4 10^3/uL (4.8-10.8)
[2024-08-03] MEDS: PULMICORT 0.5 MG INH ×2 (07:51→19:27)
[2024-08-03] MEDS: ATROVENT NEBULES 0.5 MG INH ×3 (07:51→19:28)
[2024-08-03] MEDS: XOPENEX 1.25 MG INHALANT SOLUTION INH ×3 (07:51→19:28)
[2024-08-03] MEDS: ELIQUIS 2.5 MG PO ×2 (08:53→20:02)
[2024-08-03] MEDS: PROTONIX 40 MG PO (08:53)
[2024-08-03] MEDS: MUCINEX 600 MG PO ×2 (08:53→20:02)
[2024-08-03] MEDS: DELTASONE 40 MG PO (08:54)
[2024-08-03] MEDS: BETAPACE 40 MG PO ×2 (08:56→20:02)
[2024-08-03] MEDS: TAMIFLU 30 MG PO ×2 (08:57→20:02)
--- NOTE | 2024-08-03 09:01 | W.PN.PUL3 ---
Today's Communication / Plan
-
Continue nebulizer therapy
Continue budesonide
Start prednisone taper with eventual wean back to her home dose (10mg daily)
Increase activity as able
Wean off oxygen; if resting SaO2 is <96% at rest then check ambulatory pulse oximetry prior to discharge
Continue telemetry monitoring
A-fib management as per cardiology with rate control; goal HR <110
Pulmonary service will continue to briefly follow along; outpatient pulmonary office follow-up be arranged
Assessment
-
Assessment: 83-year-old female former tobacco smoker with past medical history of chronic HFpEF, hiatal hernia, GERD, hypertension, hyperlipidemia, DIEGO intolerant to CPAP, COPD, CAD s/p PCI, history of Tari-en-Y gastric bypass, colonic polyps,
history of diverticulosis, CKD, A-fib on Eliquis, history of COVID-19 (11/2021), history of right breast melanoma, history of PE (03/2012 1), fibromyalgia, iron deficiency anemia, external hemorrhoids, lumbar DDD + depression who presents from home
with shortness of breath since Tuesday (07/29/2024). Also endorses occasional abdominal pain x 1 day. History obtained from ER documentation as patient is lethargic and unable to assist with HPI or ROS. Patient's been feeling general malaise with
sneezing and cough for several days. She became increasingly short of breath on the evening prior to arrival and called 911. She says that multiple family was have the flu. She has a cough productive of yellow mucus. She is apparently lost about
90 pounds over the past year, unclear etiology. Initially, patient was febrile to 102.3 �F, pulse rate 108, reading at 26 breaths minute, BP 139/58 and saturating 87% on room air. Saturations improved to 94-95% with 4 L/min nasal cannula applied.
In the director of operations home health hours of 07/31/2024, her blood pressure started to drop to systolic in the 80s, and heart rate also dropped throughout the day to the 40-50s. Labs showed initial troponin 0.1, proBNP 5730, and COVID-19 antigen negative. Flu
swab was positive for influenza A. CXR showed no acute cardiopulmonary process. She was given Tamiflu, DuoNebs, aspirin, Tylenol and Solu-Medrol. She was admitted to the IMU for further care and pulmonary/director of product design service is now consulted for
additional management/recommendations.
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
procedure, adenomatous colonic polyps, liver steatosis with fibrosis, diverticulosis, PUD, Thakkar's esophagus, CKD, A-fib on Eliquis, history of COVID-19 (11/2021), chronic HFpEF, history of ischemic nephropathy with renal sclerosis, melanoma to
right breast, history of PE (03/2021)
Impression:
#Acute respiratory failure with hypoxia due to influenza A pneumonia
#Bradycardia with hypotension likely due to sepsis in setting of sotalol usage (half-life: 12 hours) + cardizem CD - bradycardia now resolved
#Altered mental status likely due to hypotension with sepsis - AMS now resolved
#Acute COPD/asthma exacerbation
#Elevated troponin (peaked at 0.1 on 07/31/2024) likely due to demand ischemia with type II NH
#Elevated proBNP
#Chronic HFpEF
#History of kyphoscoliosis
#DIEGO intolerant to CPAP
#A-fib on Eliquis
#GERD continued on Nexium
#Restrictive lung disease (severe with T% predicted/2.6 L via spirometry from 06/19/2024)
Plan:
Clinically improved
- Vasopressors have been discontinued. Hemodynamics improved. Bradycardia now resolved
Okay to taper down steroids --> started prednisone taper today (08/03/2024) with eventual return to 10 mg daily
-
Coarse BS/rales on exam. Not bronchospastic. Complaining of coughing that is improved as of 08/02/2024
- Continue nebulizer therapy: Atrovent/Xopenex and budesonide.
Xopenex and budesonide - home regimen
- Maintain SpO2 88-95% with supplemental oxygen and titrate down as tolerated-currently on RA from 3 L/min
- Continue mucolytics/antitussives.
- Doubt bacterial pneumonia, symptoms started subacutely on Tuesday, unclear if she needs ABx (no leukocytosis/procalcitonin negative)--> continue empiric Zosyn for now
- Blood culture drawn 07/31/2024 shows NGTD
- Has not been able to provide a sputum
- If remains afebrile and all cultures negative discontinue antibiotics now
- Tamiflu x 5 days
- No longer hypotensive-vasopressors discontinued.
- Troponin peaked at 0.1 on 07/31/2024; no need to continue trending at this time
- EKG without AV block.
- Sotalol resumed by cardiology (also takes Cardizem CD 180mg at home)
- Defer further management to cardiology.
- Echo performed on 08/02/2024 showed LVEF 55 to 60% with trace AI and no regional WMA; (last echo in 06/2023 with normal LV size/systolic function with normal RV size/systolic function and no significant pulmonary hypertension at that time)
- TSH low but T4 normal. Sick euthyroid --> recheck TFTs as an outpatient in about 6 weeks (defer to PCP)
- Replete electrolytes with K>4, Mg>2
- Encourage oral hydration.
- Mental status back to baseline. Strong cough effort. Initially lethargic. Likely due to acute illness. No need for ABG. Does have chronic hypercapnia on prior ABG, last in June 2023
- Trend H/H and transfuse if needed to keep Hb>7g/dL; keep plt>20k, unless there is concern for bleeding then keep plt>50k
- Encouraged incentive spirometry q1hr while awake
- Continue PPI (home med)
- DVT ppx: Eliquis
Pulmonary service will continue to follow along; given her confusion regarding her inhalers, her discharge home medications should be reconciled with the patient so that she understands which meds to take for which indication.
Of note, she should continue following up with us after discharge as she follows with Dr. Torres. Last visit was on 06/19/2024, and she has an upcoming appointment on 09/18/2024. She may need a sooner appointment depending how of this
hospitalization progresses.
Data:
CXR 07/31/2024: No active cardiopulmonary disease.
Total time spent today was 37 minutes for this encounter. Time includes reviewing laboratory test/imaging results, reviewing pertinent medical records, obtaining and reviewing medical history, performing an appropriate exam, ordering medications,
tests and procedures. Time also includes documentation of this encounter, coordinating patient care and communicating with other healthcare professionals. Total time does not include separately billed tests performed on this date of service.
Subjective Data
-
Date of Service:
Date of Service: August 03, 2024
Chief Complaint: Pulmonary Follow Up (Acute hypoxemic respiratory failure due to influenza A.)
Subjective:
Patient seen and evaluated today at bedside. She says her shortness of breath is not better today. Denies chest pain, MAZARIEGOS, abdominal pain, nausea, fevers or chills.
Review of Systems
General: Other (Negative unless mentioned above)
Objective Data
Data Reviewed
Vital Signs / I&O / Oxygen:
Vital Signs
Temp Pulse Resp BP Pulse Ox
97.4 F 94 16 151/100 96
08/03/24 07:10 08/03/24 08:56 08/03/24 07:50 08/03/24 08:56 08/03/24 07:50
Intake and Output
08/02/24 08/03/24 08/04/24
06:59 06:59 06:59
Intake Total 960 / 960 1500 / 1500
Balance 960 / 960 1500 / 1500
SaO2 96
Nasal Cannula flow liters per 1
minute
Physical Exam
General: Respiratory Distress (negative), Comfortable, Chills (negative) and Sweats (negative)
HEENT: Normocephalic and Anicteric
Cardiovascular: Irregular Rhythm (Irregularly irregular) and Peripheral Edema (negative)
Respiratory: Wheeze (negative), Crackles, Rhonchi (negative), Non-Labored Respirations, Other (Diminished breath sounds bilaterally) and Other (Coarse breath sounds heard bilaterally)
GI: Soft, Non Distended, Non Tender and Normal Bowel Sounds
Neurology: AO x 3 and Tremors (negative)
Skin: Warm, Dry, Cyanosis (negative) and Jaundice (negative)
Labs/Micro/Reports
Lab Data
08/03/24 04:31
08/03/24 04:31
Microbiology
08/03/24 02:06 Feces/Stool - Final
Negative for Norovirus GI and GII.
07/31/24 18:01 Blood/Venous Blood Culture - Preliminary
No Growth in 48 hours- Final report to follow
08/02/24 10:06 Feces/Stool C. difficile GDH Antigen & Toxins - Final
Negative for toxigenic C.difficile
08/02/24 10:06 Feces/Stool - Final
--- NOTE | 2024-08-03 10:09 | W.PN.CD ---
Today's Communication / Plan
-
- Continue Sotalol - rates are better cotrolled now.
- Digoxin started and if bradycardia noted, can be discontinued
Impression / Plan
-
Abnormal troponin - acute non ischemic myocardial injury in the setting of acute influenza A, SOB.
- peak trop 0.100. Likely due to viral sepsis.
- denies chest pain, EKG without ischemia.
- treat influenza.
- no need for ASA as she is on Eliquis for Afib/PE history.
Sepsis with shock due to Influenza A
-Recovered
-Off the levophed
- Tamiflu per hospitalist.
- supportive care.
Afib - persistent, in NSR typically on Sotalol 40mg BID,
-Recurrent AF in setting of flu
-AF with RVR - rate better controlled now with Sotalol and digoxin
-QTc is acceptable.
- continue Eliquis 2.5mg BID. [id number] VASc score is 5.
- s/p Afib and aflutter ablation 10/2022.
- Ablation included, PVI, PWI and Z line.
- With Sotalol failing, can consider redo ablation with her recurrent rhythms.
HFpEF - chronic.
- hypotension resolev
- in the setting of sepsis, acute Flu A, SOB, viral PNA.
- Can resume home dose Lasix and Farxiga
- she has weight loss this year of 90 lbs, weight at home is 139 lbs.
HTN
- Recovered.
- monitor.
Subjective:
She is feeling much better, still coughing but has an appetite. RVR with dyspnea.
Physical Exam
Vital Signs/Labs
Vital Signs
Temp Pulse Resp BP Pulse Ox
97.4 F 94 16 151/100 96
08/03/24 07:10 08/03/24 08:56 08/03/24 07:50 08/03/24 08:56 08/03/24 07:50
08/02/24 08/03/24 08/04/24
06:59 06:59 06:59
Actual Weight 66.905 kg 66.043 kg
08/03/24 04:31
08/03/24 04:31
Magnesium 2.2 mg/dl (1.6-2.3) 08/02/24 04:49
Triglycerides 114 mg/dl (10-149) 08/01/24 05:27
LDL Cholesterol, Calc 70 mg/dl 08/01/24 05:27
VLDL Cholesterol, Calc 22 mg/dl (0-30) 08/01/24 05:27
HDL Cholesterol 55 mg/dl 08/01/24 05:27
Free T4 1.52 ng/dl (0.78-2.19) 07/31/24 18:01
07/31/24 08/01/24
04:14 05:27
Rdd-H-Vhpjhnojxns Pept 5730 2100
LAB Results
07/31/24 07/31/24
12:29 18:01
Troponin I 0.058 H* D 0.027 D
Physical Exam
Constitutional: No acute distress and Comfortable
EENT: Anicteric and Moist mucous membranes
Cardiovascular: JVD pressure is normal, Rhythm/rate is irregular and Systolic murmur present
Respiratory: Respiratory effort normal and Crackles Absent
GI: Non tender and Normal bowel sounds
Neuro/Psych: Alert, Oriented and AO x 3
Data Reviewed
-
Date of Service: August 03, 2024
Medical Decision Making: Reviewed Test Results, Test Interpretation and Review of Case with other Provider
EKG: Tracing Personally Visualized and interpreted
Echo: Report Reviewed by me
X-Ray/CT/US/MRI/NUC/PET: Image Personally Visualized and interpreted
Labs: Labs Reviewed by me
Old Records: Reviewed
[2024-08-03] MEDS: LANOXIN 250 MCG PO (12:29)
--- NOTE | 2024-08-03 13:25 | CM ---
Initial assessment completed @ bedside
Pharmacy verified: [facility] [address] [facility]
Patient reported that she lives alone in an apartment @ [facility]; elevator access
PLOF: reported she was independent with ADLs; ambulated with RW or Cane when she left the apartment; mobiles with Scooter; Does not get into the tub; takes sponge bath; has family/friends to assist with food shopping
Family or Friend will provide transport home
SNF stay @ [facility] 2022; home health w/ [facility] in 2023
Agreeable to [facility] if home health is recommended; reported she won't go to a SNF
Discharge plan to be determined pending hospital course; CM will monitor for needs/services
--- NOTE | 2024-08-03 15:35 | W.PN.HOSP.TC ---
Today's Communication/Plan
-
Assessment / Plan
Assessment / Plan
Ms. Taryn Wisdom is an 83yoF h HFpEF (EF 55-60%), afib on eliquis, HTN, COPD, Stage III CKD admitted for influenza.
Sepsis secondary to Influenza A Pneumonia
Acute Hypoxemic Respiratory Insufficiency secondary to pneumonia
-Improving, now off of o2
- SIRS criteria met: fever, tachypnea, tachycardia
- flu A positive
- CXR: interstitial pneumonia
- tamiflu x5days
- abx to cover possible secondary infection
- Supportive care with O2, albuterol MDI, chest PT, mucolytics, etc.
- Patient is unvaccinated host.
- blood cx, sputum cx pending
- Wean oxygen as tolerated
Abnormal Troponin
ASCVD
- Suspect non-ischemic myocardial injury secondary to acute illness / sepsis.
- ECG: no acute ischemia
- Cont ASA
- troponins downtrending
- Cardiology consulted
- Now on digoxin and sotalol monitor for bradycardia QTc.
Anemia
- drop from 14.1 to 10.5 overnight
- monitor for bleeds
- transfuse Hb<7
Abnormal lab value
- TSH 0.35
Chronic HFpEF
- Echo 06/2023: EF 55-60%
- Unlikely she is in acute exacerbation
- hold furosemide, SGLT2i
- Follow I/Os, daily weights, etc.
- keep K>4, Mg>2
- trend BNP
- 2decho 55-60%, trace AR
- Cardiology consulted
Persistent Atrial Fibrillation
- - Initially sotalol was continued however believed to have interacted with Tamiflu to cause a prolongation QTc. Therefore sotalol has been held by cardiology
- Continue home Eliquis
- Now on digoxin and sotalol monitor for bradycardia QTc.
COPD with Acute Exacerbation
- Likely secondary to influenza pneumonia
- IV steroids have been transitioned to PO steroids
--Would plan to start tapering Solu-Cortef to Methylpred in the next 24 hours
- Albuterol MDI.
- Wean oxygen with goal SpO2 88-92%
CKD III
- Stable. Renal function at baseline.
History of DVT / PE
- Continue Eliquis.
Diet: cholesterol lowering
DVT ppx: eliquis
Code Status: Full code
Anticipated Discharge: 24 - 48 hours
Subjective/Interval History
-
Date of Service: August 03, 2024
Feeling better. Asking when she will be going home.
Still has runs of afib rvr
Objective Data
-
Labs:
Laboratory Results
08/03/24
04:31
WBC 9.4
Hgb 12.1
Hct 37.6
Plt Count 229 D
Sodium 138
Potassium 3.5
Chloride 102
Carbon Dioxide 30
BUN 19 H
Creatinine 0.8
Glucose 106 H
Calcium 8.8
Vital Signs:
Vital Signs
Temp Pulse Resp BP Pulse Ox
97.5 F 102 16 124/78 95
08/03/24 15:10 08/03/24 15:10 08/03/24 15:10 08/03/24 15:10 08/03/24 15:10
I&O
08/02/24 08/03/24 08/04/24
06:59 06:59 06:59
Intake Total 960 / 960 1500 / 1500
Balance 960 / 960 1500 / 1500
Physical Exam
-
General: Well Developed and Well Nourished
HEENT: Normocephalic
Respiratory: Clear to Auscultation
Cardiac: S1/S2, Irregular Rhythm and Tachycardic
GI: Soft, Nontender and Nondistended
Neuro: Awake, Alert, Oriented and AO x 3
Psych: Calm
--- NOTE | 2024-08-03 17:27 | PTCARENOTE ---
Received patient this am AAOx3. Pt anxious intermittently and forgetful. Pt tolerated diet. Appetite fair. OOB to chair an tolerated well. Offered no complaints. Made patient comfortable. Cont to assess patient status.
[2024-08-04] MEDS: ZOSYN 50 IV (02:47)
[2024-08-04 03:00] VITALS: BP 162/91
[2024-08-04 04:37] VITALS: BP 132/89
[2024-08-04 06:00] VITALS: BMI 24.9
[2024-08-04 07:52] VITALS: BP 161/86
[2024-08-04] MEDS: XOPENEX 1.25 MG INHALANT SOLUTION INH ×2 (07:53→13:04)
[2024-08-04] MEDS: PULMICORT 0.5 MG INH (07:53)
[2024-08-04] MEDS: ATROVENT NEBULES 0.5 MG INH ×2 (07:53→13:04)
[2024-08-04 08:18] LABS: Hemoglobin 12.6 g/dL (12.0-16.0); Mean Corp Hgb Conc. 31.5 g/dL (33.0-37.0); Mean Corpuscular Hgb 29.2 pg (27.0-31.0); Mean Corpuscular Volume 92.8 fL (81.0-99.0); Mean Platelet Volume 10.7 fL (7.4-10.4); Platelet Count 277 10^3/uL (130-400); Red Blood Cell Count 4.31 10^6/uL (4.20-5.40); Red Cell Dist. Width 16.8 % (11.5-14.5); White Blood Cell Count 12.5 10^3/uL (4.8-10.8)
[2024-08-04] MEDS: DELTASONE 40 MG PO (08:30)
[2024-08-04] MEDS: BETAPACE 40 MG PO (08:30)
[2024-08-04] MEDS: MUCINEX 600 MG PO (08:31)
[2024-08-04] MEDS: TAMIFLU 30 MG PO (08:31)
[2024-08-04] MEDS: ELIQUIS 2.5 MG PO (08:31)
[2024-08-04] MEDS: PROTONIX 40 MG PO (08:31)
[2024-08-04 09:12] LABS: Blood Urea Nitrogen 26 mg/dl (7-17); Calcium 8.6 mg/dl (8.4-10.2); Carbon Dioxide 33 mmol/L (22-30); Chloride 102 mmol/L (98-107); Estimated Creatinine Clearance 37 ml/min; Glucose 75 mg/dl (70-99); Potassium 3.1 mmol/L (3.5-5.1); Sodium 140 mmol/L (135-145)
--- NOTE | 2024-08-04 09:37 | W.PN.UPDATE ---
Update Note
Progress Note Update
-Telemetry reviewed: Rate-controlled atrial fibrillation.
-The patient can be discharged to home on sotalol 40 mg twice daily, digoxin 250 mcg daily, and Eliquis 2.5 mg twice daily.
-Outpatient follow-up with Cardiology.
[2024-08-04] MEDS: LANOXIN 250 MCG PO (11:04)
[2024-08-04] MEDS: KCL ELIXIR 40 MEQ PO ×2 (11:58→15:01)
[2024-08-04 13:11] VITALS: BP 164/90
--- NOTE | 2024-08-04 13:55 | CM ---
Met with patient at bedside; she reported that family will transport her home
IMM benefit explained; form signed @ 1350
Plan: Discharge to home with [facility] home health services; referral sent via [facility]
--- NOTE | 2024-08-04 14:23 | W.PN.HOSP.TC ---
Today's Communication/Plan
-
DC home
More than 30 minutes spent in discharge including
Final examination of the patient
Summarizing hospital stay
Instructions for continuing care to all relevant caregivers
Preparation of discharge records, prescriptions, and referral forms
Total time spent (in minutes): 33min
Assessment / Plan
Assessment / Plan
Ms. Taryn Wisdom is an 83yoF pmh HFpEF (EF 55-60%), afib on eliquis, HTN, COPD, Stage III CKD admitted for influenza.
General: Well Developed and Well Nourished
HEENT: Normocephalic
Respiratory: Clear to Auscultation
Cardiac: S1/S2, Irregular Rhythm
GI: Soft, Nontender and Nondistended
Neuro: Awake, Alert, Oriented and AO x 3
Psych: Calm
Sepsis secondary to Influenza A Pneumonia
Acute Hypoxemic Respiratory Insufficiency secondary to pneumonia
-Improving, now off of o2
- SIRS criteria met: fever, tachypnea, tachycardia
- flu A positive
- CXR: interstitial pneumonia
- tamiflu x5days
- abx to cover possible secondary infection
- Supportive care with O2, albuterol MDI, chest PT, mucolytics, etc.
- Patient is unvaccinated host.
- blood cx, sputum cx pending
- Wean oxygen as tolerated
Abnormal Troponin
ASCVD
- Suspect non-ischemic myocardial injury secondary to acute illness / sepsis.
- ECG: no acute ischemia
- Cont ASA
- troponins downtrending
- Cardiology consulted
- Now on digoxin and sotalol monitor for bradycardia QTc.
Anemia
- drop from 14.1 to 10.5 overnight
- monitor for bleeds
- transfuse Hb<7
Abnormal lab value
- TSH 0.35
Chronic HFpEF
- Echo 06/2023: EF 55-60%
- Unlikely she is in acute exacerbation
- hold furosemide, SGLT2i
- Follow I/Os, daily weights, etc.
- keep K>4, Mg>2
- trend BNP
- 2decho 55-60%, trace AR
- Cardiology consulted
Persistent Atrial Fibrillation
Per cardiology continue digoxin and sotalol. Continue Eliquis.
COPD with Acute Exacerbation
- Likely secondary to influenza pneumonia
- IV steroids have been transitioned to PO steroids
--Would plan to start tapering Solu-Cortef to Methylpred in the next 24 hours
- Albuterol MDI.
- Wean oxygen with goal SpO2 88-92%
CKD III
- Stable. Renal function at baseline.
History of DVT / PE
- Continue Eliquis.
Diet: cholesterol lowering
DVT ppx: eliquis
Code Status: Full code
Anticipated Discharge: Today
Subjective/Interval History
-
Date of Service: August 04, 2024
Seen and examined. Feeling better. No new complaints.
Objective Data
-
Labs:
Laboratory Results
08/04/24
07:42
WBC 12.5 H
Hgb 12.6
Hct 40.0
Plt Count 277 D
Sodium 140
Potassium 3.1 L
Chloride 102
Carbon Dioxide 33 H
BUN 26 H
Creatinine 1.0
Glucose 75
Calcium 8.6
Vital Signs:
Vital Signs
Temp Pulse Resp BP Pulse Ox
97.7 F 73 16 164/90 94
08/04/24 13:11 08/04/24 13:11 08/04/24 13:11 08/04/24 13:11 08/04/24 13:11
I&O
08/03/24 08/04/24 08/05/24
06:59 06:59 06:59
Intake Total 1500 / 1500 520 / 520
Balance 1500 / 1500 520 / 520
--- NOTE | 2024-08-04 14:25 | W.DCSUMMARY ---
Discharge Summary
Discharge Data
Date of Admission: 07/31/24
Date of Discharge: 08/04/24
-
Pending Results: No
Hospital Course
83y F with PMH significant for A-Fib, CHF and COPD
Presented with weakness lethargy and shortness of breath. Found to be hypoxic requiring supplemental oxygen secondary to influenza A. Started on Tamiflu. This eventually interacted with sotalol therefore sotalol was held. Unfortunately went into
atrial fibrillation RVR. Was evaluated by cardiology which recommended initiating digoxin. Repeat EKG following morning demonstrated improvement in heart rate and QTc. Cardiology then recommended to resume sotalol. QTc remained within normal
after that. Was able to wean oxygen as tolerated to back to room air.
Will be discharged home with Tamiflu to complete 5 days
Sotalol 40 mg twice a day
Digoxin 250 mcg daily
Eliquis 2.5 mg twice a day
2d echo
CONCLUSIONS
Small LV cavity with normal systolic function and no regional wall motion
abnormalities.
LVEF is 55-60% by visual estimation.
Mild concentric LVH.
Normal right ventricular size and function.
Trace aortic regurgitation.
Right heart pressures could not be determined.
Compared to prior from June 13, 2023, no significant change.
Discharge Plan
-
Patient Disposition: Home (Routine Discharge)
Discharge Diagnosis/Procedures: Acute hypoxemic respiratory failure secondary to influenza A
Atrial fibrillation RVR
Condition: Good
Diet: As tolerated
Activity: As tolerated
Activity Restrictions/Additional Instructions:
Presented with weakness lethargy and shortness of breath. Found to be hypoxic requiring supplemental oxygen secondary to influenza A. Started on Tamiflu. This eventually interacted with sotalol therefore sotalol was held. Unfortunately went into
atrial fibrillation RVR. Was evaluated by cardiology which recommended initiating digoxin. Repeat EKG following morning demonstrated improvement in heart rate and QTc. Cardiology then recommended to resume sotalol. QTc remained within normal
after that. Was able to wean oxygen as tolerated to back to room air.
Will be discharged home with Tamiflu to complete 5 days
Sotalol 40 mg twice a day
Digoxin 250 mcg daily
Eliquis 2.5 mg twice a day
2d echo
CONCLUSIONS
Small LV cavity with normal systolic function and no regional wall motion
abnormalities.
LVEF is 55-60% by visual estimation.
Mild concentric LVH.
Normal right ventricular size and function.
Trace aortic regurgitation.
Right heart pressures could not be determined.
Compared to prior from June 13, 2023, no significant change.
Instructions: Flu in adults - Discharge instructions, Atrial fibrillation - Discharge instructions
Referrals:
Russ Torres MD [Active] - 09/18/24 11:15 am
Harpreet Griggs MD [Active] - (office will call you to arrange)
Matthias Montgomery MD [Family Provider] -
Prescriptions:
New
prednisone 10 mg Tablet
See Taper PO DAILY Qty: 27 0RF
Taper: Prednisone DC Starting at 40 mg daily
40 mg Daily for 3 Days and 0 Hour
30 mg Daily for 3 Days and 0 Hour
20 mg Daily for 3 Days and 0 Hour
digoxin 250 mcg (0.25 mg) Tablet
250 mcg PO NOON Qty: 30 0RF
pantoprazole 40 mg Tablet,Delayed Release (Dr/Ec)
40 mg PO DAILY Qty: 30 0RF
oseltamivir 30 mg Capsule
30 mg PO BID Qty: 1 0RF
guaifenesin 600 mg Tablet Extended Release 12hr
600 mg PO Q12 Qty: 10 0RF
Continued
levalbuterol tartrate [Xopenex HFA] 45 mcg/actuation Hfa Aerosol Inhaler
1 puff INHALATION R Q6HPRN PRN (Reason: sob)
esomeprazole magnesium [Nexium] 40 mg Capsule,Delayed Release(Dr/Ec)
40 mg PO DAILY
dapagliflozin propanediol [Farxiga] 10 mg Tablet
10 mg PO DAILY
budesonide 0.5 mg/2 mL Suspension For Nebulization
0.5 mg INHALATION R BID
furosemide 40 mg tablet
40 mg PO DAILY
levalbuterol HCl 0.63 mg/3 mL solution for nebulization
0.63 mg INHALATION R BID
sotalol 80 mg Tablet
40 mg PO BID
cholecalciferol (vitamin D3) [Vitamin D3] 25 mcg (1,000 unit) Tablet
25 mcg PO DAILY
Eliquis 2.5 mg tablet
2.5 mg PO BID
fluticasone furoate-vilanterol [Breo Ellipta] 200-25 mcg/dose Blister With Device
1 inh INHALATION R DAILY
hydrocodone-acetaminophen 5-325 mg tablet
1 tab PO Q6HPRN PRN (Reason: severe Pain)
diltiazem HCl 180 mg Capsule,Extended Release 24hr
180 mg PO DAILY
methotrexate sodium 2.5 mg Tablet
0 mg PO QWEEK
folic acid 1 mg Tablet
1 mg PO DAILY
potassium chloride 20 mEq Tablet Extended Release
20 meq PO DAILY
Held
prednisone 10 mg Tablet
10 mg PO BID
Hold Instructions: Resume on 08/14/24.
Discharge Orders:
Discharge Patient (As Directed); Ordered 08/04/24
Ordered By: Lino Garcia
Discharge Date and Time
Print Language: FRENCH
--- NOTE | 2024-08-04 15:09 | PTCARENOTE ---
Pt given 2 doses of K elixir 40meq as ordered prior to discharge.
== END 2024-08-04 16:52 | disposition home health service (06) | DRG 871 ==
LOC: 3 WEST ACU 06:24
PROVIDERS: ADMITTING PHYSICIAN Hospitalist; ATTENDING PHYSICIAN Hospitalist; EMERGENCY PHYSICIAN Emergency Medicine; FAMILY PHYSICIAN Family Medicine; OTHER PHYSICIAN Internal Medicine Cardiovascular Disease; OTHER PHYSICIAN Internal Medicine Critical Care Medicine
DX: A41.89 Other specified sepsis (principal); J10.01 Influenza due to other identified influenza virus with the same other identified influenza virus pneumonia; J96.01 Acute respiratory failure with hypoxia; R65.21 Severe sepsis with septic shock; I50.32 Chronic diastolic (congestive) heart failure; J44.1 Chronic obstructive pulmonary disease with (acute) exacerbation; I48.19 Other persistent atrial fibrillation; I13.0 Hypertensive heart and chronic kidney disease with heart failure and stage 1 through stage 4 chronic kidney disease, or unspecified chronic kidney disease; J44.0 Chronic obstructive pulmonary disease with (acute) lower respiratory infection; I5A Non-ischemic myocardial injury (non-traumatic); N18.30 Chronic kidney disease, stage 3 unspecified; E11.22 Type 2 diabetes mellitus with diabetic chronic kidney disease; I95.9 Hypotension, unspecified; G47.33 Obstructive sleep apnea (adult) (pediatric); K44.9 Diaphragmatic hernia without obstruction or gangrene; E78.5 Hyperlipidemia, unspecified; M79.7 Fibromyalgia; M41.9 Scoliosis, unspecified; K64.4 Residual hemorrhoidal skin tags; M51.369 Other intervertebral disc degeneration, lumbar region without mention of lumbar back pain or lower extremity pain; K22.70 Barrett's esophagus without dysplasia; K21.9 Gastro-esophageal reflux disease without esophagitis; I25.10 Atherosclerotic heart disease of native coronary artery without angina pectoris; D50.9 Iron deficiency anemia, unspecified; F32.A Depression, unspecified; Z96.612 Presence of left artificial shoulder joint; Z96.652 Presence of left artificial knee joint; Z60.2 Problems related to living alone; Z90.49 Acquired absence of other specified parts of digestive tract; Z98.84 Bariatric surgery status; Z87.891 Personal history of nicotine dependence; Z90.721 Acquired absence of ovaries, unilateral; Z88.7 Allergy status to serum and vaccine; Z82.49 Family history of ischemic heart disease and other diseases of the circulatory system; Z86.718 Personal history of other venous thrombosis and embolism; Z85.828 Personal history of other malignant neoplasm of skin; Z86.711 Personal history of pulmonary embolism; Z82.3 Family history of stroke; Z88.8 Allergy status to other drugs, medicaments and biological substances; Z79.01 Long term (current) use of anticoagulants; Z79.52 Long term (current) use of systemic steroids; Z79.891 Long term (current) use of opiate analgesic; Z79.51 Long term (current) use of inhaled steroids; Z86.0100 Personal history of colon polyps, unspecified; Z85.820 Personal history of malignant melanoma of skin; Z86.16 Personal history of COVID-19; Z82.62 Family history of osteoporosis; Z80.0 Family history of malignant neoplasm of digestive organs; Z63.72 Alcoholism and drug addiction in family; Z81.1 Family history of alcohol abuse and dependence; Z11.52 Encounter for screening for COVID-19
CPT/HCPCS: 71045; 80048; 80053; 80061; 83735; 83880; 84100; 84145; 84439; 84443; 84484; 85025; 85027; 87040; 87324; 87449; 87502; 87798; 87811; 93005; 93306; 94640; 96361; 96365; 96367; 96375; 97116; 97162; 97166; 97530; 99285; J1160

== ENCOUNTER 2024-10-09 11:31 | Inpatient (IN) | payer OTHER, SELFPAY ==
[2024-10-09] VITALS (21 sets, daily range): BP systolic 69–114; BP diastolic 34–94; BMI 24.4; BMI 23.4
--- NOTE | 2024-10-09 09:10 | ED.GENMED ---
History of Present Illness
General
Chief Complaint: Heart Rate Problem
Source: patient and family (Daughter was with patient at [facility] for her cataract surgery)
Exam Limitations: none
Time Seen by Provider: 10/09/24 08:53
Nursing documentation reviewed up to this point in time: agreed with
History of Present Illness
History of Present Illness:
84-year-old female presents emergency department due to low heart rate. She was at [facility] to get cataract surgery, they dilated her eye, and then noted her heart rate was low, did not do the procedure and sent her to the emergency
department. She did not take her Eliquis today. She has been taking her diltiazem and digoxin. She follows with Dr. Griggs, grain unloader.
Past History
Past History
ED Past Medical History: Arrthythmia, Asthma, CHF, COPD, GERD, NIDDM and Other (Sleep apnea, polyps, peptic ulcer disease, Thakkar's esophagitis, diverticulosis)
ED Past Surgical History: Appendectomy, Gynecological (Right Oophorectomy with tube) and Other (Gastric bypass, cataract left eye)
Social History
Tobacco: Former smoker
Alcohol: None
Drug: None
Personal:
Living: alone
Family History
Family History: Other (Mother with previous pleurisy)
Review of Systems
Review of Systems
Allergies reviewed?: Yes
All Other Systems: Not applicable
Constitutional: Reports fatigue
EENT: Reports no symptoms
Respiratory: Reports no symptoms
Cardiac: Reports no symptoms
ABD/GI: Reports no symptoms
: Reports no symptoms
Musculoskeletal: Reports no symptoms
Skin: Reports no symptoms
Neurological: Reports no symptoms
Endocrine: Reports no symptoms
Hematologic/Lymphatic: Reports no symptoms
Psychiatric: Reports no symptoms
Phy Exam
Physical Exam
Physical Exam:
Physical Exam
General: no apparent distress, not acutely ill
Neck: supple. no meningeal signs. normal posterior pharynx
Heart: s1/s2 bradycardia, irregular rhythm, no murmur. equal radial
pulses.
HEENT: Right eye dilated to 5 mm, left eye 3 mm and reactive
Lungs: no acute respiratory distress. clear bilaterally
Abdomen: normal bowel sounds. not tender. no CVAT
Neuro: alert and oriented. no focal neurological deficits cranial nerves II through XII intact
Skin: no rash
Psychiatric: well kept. interactive and cooperative
Extremities: no edema. no calf tenderness. negative homans. good distal pulses
Course
Orders/Labs/Results
Orders:
Orders
10/09/24 Breakfast
Cholesterol Lowering
Cholesterol Lowering: Sodium, 2 Gram
10/09/24 08:28
EKG [Electrocardiogram (*1)] Urgent
Reason for Study: Abnormal EKG
EKG- Treatment ONCE
10/09/24 08:54
Cardiac Monitoring- Treatment ONCE
IV Insert/Care/Rem.- Treatment PRN
10/09/24 09:03
Complete Blood Count/With Diff Urgent
Comprehensive Metabolic Panel Urgent
Digoxin Urgent
Magnesium Urgent
10/09/24 10:30
Digoxin Immune Reuben [Digifab/Digibind] 1 vial 0.9% Sodium Chloride 50 ml [Nss] 50 ml IV STAT
10/09/24 10:36
TSH Reflex To Free T4 Urgent
10/09/24 10:41
Code Status As Directed
Resuscitation Status: Full Code
Bisacodyl [Dulcolax] 10 mg RECTAL [id number] PRN
Docusate W/Senna [Senokot-S] 1 tablet PO BIDPRN PRN
Polyethylene Glycol Powder [Miralax] 17 grams PO DAILYPRN PRN
Activity As Directed
Activity Level: As Tolerated
Vital Signs As Directed
Frequency: Per unit guidelines
10/09/24 10:43
Admit/Transfer Patient As Directed
Co-Sign Provider:
Level of Care: Inpatient admission
Assign to:: Telemetry
Physician / Group: Hospitalist: Nida
Diagnosis: bradycardia
Reason for Telemetry: Arrhythmia
Date to Stop Telemetry: 10/12/24
Time to Stop Telemetry: 11:00
Reason for Hospitalization: bradycardia
Expected length of stay greater than two midnights?: Yes
ELOS- Estimated Length of Stay in days: 2
I certify the patient meets the requirements for IP care: Yes
10/09/24 10:44
PRN Pain Medication Management As Directed
May give lesser potent ordered pain med per pt: Yes
preference::
Protocol:: Medication orders for pain may be administered in a
manner that supports deferring to patient preference
when the pt is:
- Requesting an ordered lesser potent pain medication.
Least to most potent pain medications are defined
as: acetaminophen < NSAID < tramadol < opioids
(morphine, oxycodone, hydromorphone).
- Requesting a lesser dose of the same medication IF
ORDERED.
- Requesting a less intrusive route of administration
if both routes are prescribed by the provider (PO <
IV).
10/09/24 10:48
EKG [Electrocardiogram (*1)] Routine
Reason for Study: Atrial Fibrillation
Comment: One hour post DigiBind
10/09/24 11:01
0.9% Sodium Chloride 1000 ml [Nss] 1,000 ml IV BOLUS
10/12/24 11:00
DC Protocol for Telemetry ONCE
Abnormal Lab Results
10/09/24
09:03
MCHC 30.9 L g/dL
(33.0-37.0)
RDW 15.6 H %
(11.5-14.5)
MPV 11.4 H fL
(7.4-10.4)
Absolute Monos (auto) 0.7 H 10^3/uL
(0.1-0.6)
BUN 19 H mg/dl
(7-17)
Creatinine 1.2 H mg/dL
(0.6-1.0)
Total Protein 6.1 L g/dl
(6.3-8.2)
Albumin 3.2 L g/dl
(3.5-5.0)
10/09/24 09:03
10/09/24 09:03
Vital Signs
Initial and Last Documented VS:
Initial Vital Signs
Temp Pulse Resp BP Pulse Ox
98.4 F 49 18 81/55 98
10/09/24 08:22 10/09/24 08:22 10/09/24 08:22 10/09/24 08:22 10/09/24 08:22
Last Documented Vital Signs
Temp Pulse Resp BP Pulse Ox
98.4 F 44 15 100/47 99
10/09/24 08:22 10/09/24 11:17 10/09/24 11:17 10/09/24 11:17 10/09/24 10:01
MDM/Problems Addressed
Differential Diagnosis Includes:
Bradycardia, tachybradycardia syndrome
MDM/Problems Addressed:
84-year-old female with severe bradycardia, atrial fibrillation, on diltiazem and digoxin. Digibind given. Admit to hospitalist.
Chronic conditions affecting care: Cardiomyopathy, Arrhythmia and COPD
Acute Exacerbation and/or Progression of Chronic Illness: Cardiomyopathy and Arrhythmia
*Pulse Oximetry
Patient hypoxic: no
*EKG
Interpreted by ED Provider?: Yes
EKG Intrepretation Date: 10/09/24
EKG Intrepretation Time: 08:34
Interpretation: abnormal
Comparison EKG: changes noted
Heart Rate: 57
Rate: bradycardiac
Rhythm: a-fib
[place]: normal axis
Interval: normal interval
QRS Pattern: normal QRS
Ischemia: no ischemia
*Back Seam Stitcher Interpretation
Rate: bradycardiac
Interpretation: abnormal
Heart Rate: 35
Rhythm: a-fib
*Critical Care Note
Total Time (30-74mins, 75-104mins- exclusive of procedures): 45
comment:
Critical care statement: A total of 45 minutes of critical care time was provided for this patient. This includes management of unstable vital signs, evaluation of the patient at bedside, reviewing the patient's pertinent medical records, discussion
with consultants, review of old EKGs and review of pertinent medical records. This time with separate from time utilized to perform the aforementioned documented procedures
Data Reviewed
Review of Other/Old Records Reveals: Progress Notes
Source: records (pt started on digoxin 08/03/24)
Patient Management
Social determinants of health affecting care: Living situation and Strong social support
Discussion with other providers: Hospitalist and Agriculture Department Chair (Dr Calloway recommends digibind)
Escalation/DeEscalation of care consider admission/obs:
admit to IVU indicated
ED Attending Note
-
Portions of this chart may have been created with voice recognition software.� Occasional wrong word or��sound alike� substitutions may have occurred due to the inherent limitations of voice recognition software.
Discharge Plan
Departure
Patient Disposition: Admit
Date of Disposition: 10/09/24
Time of Disposition: 10:07
Admit to: IVU
Presentation/result/management discussed w/ accepting MD/DO: Hospitalist
Patient with high blood pressure during this ER visit?: No
Condition: Fair
Discharge Problem:
Atrial fibrillation with slow ventricular response, Acute kidney injury
Interventions
Interventions:
*Risk Screen - Suicide Last Done: 10/09/24 09:06
*General Assessment Last Done: 10/09/24 09:06
*Neglect/Abuse Screening Last Done: 10/09/24 09:06
*ED- Fall Risk Assessment Last Done: 10/09/24 09:06
*ED COVID-19 Vaccine History Last Done: 10/09/24 08:22
ED- Cardiac Assessment Last Done: 10/09/24 09:06
ED- Pulmonary Assessment Last Done: 10/09/24 09:06
[2024-10-09 09:14] LABS: % Basophils 0.6 % (0-2); % Eosinophils 3.2 % (0-6); % Immature Granulocytes 0.3 % (0-0.5); % Lymphocytes 23.4 % (20.5-51.1); % Monocytes 9.2 % (1.7-9.3); % Neutrophils 63.3 % (42.2-75.2); Absolute Eosinophils 0.2 10^3/uL (0-0.7); Absolute Lymphocytes 1.7 10^3/uL (1.2-3.4); Absolute Monocytes 0.7 10^3/uL (0.1-0.6); Absolute Neutrophils 4.5 10^3/uL (1.4-6.5); Hematocrit 41.1 % (37.0-47.0); Hemoglobin 12.7 g/dL (12.0-16.0); Mean Corp Hgb Conc. 30.9 g/dL (33.0-37.0); Mean Corpuscular Hgb 27.1 pg (27.0-31.0); Mean Corpuscular Volume 87.8 fL (81.0-99.0); Mean Platelet Volume 11.4 fL (7.4-10.4); Nucleated Red Blood Cells % 0 %; Platelet Count 323 10^3/uL (130-400); Red Blood Cell Count 4.68 10^6/uL (4.20-5.40); Red Cell Dist. Width 15.6 % (11.5-14.5); White Blood Cell Count 7.1 10^3/uL (4.8-10.8)
[2024-10-09 09:39] LABS: ALT (SGPT) 11 U/L (0-35); AST (SGOT) 25 U/L (14-36); Albumin 3.2 g/dl (3.5-5.0); Alkaline Phosphatase 85 U/L (38-126); Blood Urea Nitrogen 19 mg/dl (7-17); Calcium 8.9 mg/dl (8.4-10.2); Carbon Dioxide 30 mmol/L (22-30); Chloride 100 mmol/L (98-107); Digoxin 1.9 ng/ml (0.8-2.0); Glucose 85 mg/dl (70-99); Magnesium 1.9 mg/dl (1.6-2.3); Sodium 137 mmol/L (135-145); Total Bilirubin 0.7 mg/dl (0.2-1.3); Total Protein 6.1 g/dl (6.3-8.2); eGFR 44.64
[2024-10-09] MEDS: [UNRECOGNIZED DRUG - OTHER] 54 VIAL IV (10:46)
--- NOTE | 2024-10-09 10:47 | CON.CAR ---
Addendum entered and electronically signed by Doug Calloway MD 10/09/24 11:41:
I saw and examined the patient.
The LADLE HANDLER's note was reviewed and I agree with the note.
84 old female (known to Dr. Griggs, her primary endorsement clerk) with persistent atrial fibrillation (on sotalol/diltiazem/digoxin), A-fib and atrial flutter ablation 10/2022), HFpEF PE, HTN, gastric bypass surgery,,COPD and DIEGO who presented with
bradycardia. Patient was scheduled for cataract surgery today and was noted to be severely bradycardic in the ER heart rates in the 30s and 40s with systolics in the 90s. Patient is generally felt tired and fatigued for the last couple weeks.
Also has had decreased appetite. Patient's last dose of diltiazem and sotalol and Eliquis were last night. Last dose of digoxin yesterday labs notable for digoxin level 1.9 ECG consistent with atrial fibrillation with slow ventricular response
-
Bradycardia. Patient with severe bradycardia heart rates in the 40s and 30s. Patient also with fatigue and relatively low blood pressure with systolics in the 90s.
-Continue to hold sotalol and diltiazem
-Discontinue digoxin
-1 vial of Digibind given
-No clear indication for pacing at this time. Will continue to assess needs for pacing as meds washout
.
A-fib. Persistent. Monitor rates as meds adjusted as noted above
-Patient remains on Eliquis
.
HFpEF -respiratory status stable appears euvolemic continue current therapy
.
Fatigue. May be multifactorial. Will continue to assess response to treatment noted above
.
Decreased appetite. May be secondary to use of digoxin. Can assess symptoms off digoxin
Original Note:
Consultation
Consultation Request
Date/Time Consultation Requested: 10/09/2024 10:00
Date/Time Consultation Performed: 10/09/2024 10:05
Requesting Provider: Dr. Miranda
Performing Provider: IBAN Blanco for Dr. Calloway
Reason for Consultation: Atrial fibrillation with slow ventricular response
Medical History
-
Chief Complaint: Low heart rate
History of Present Illness:
Mrs. Wisdom is an 84 old female (known to Dr. Griggs, her primary endorsement clerk) with chronic HFpEF, HTN, PAC's, persistent atrial fibrillation (on sotalol/diltiazem/digoxin, s/p ablation of atrial fibrillation and atypical flutter 10/2022), prior PE
03/2021, former tobacco use, gastric bypass surgery, & COPD (managed by Dr. Torres), and DIEGO (CPAP intolerant), who presents to the ER with a low heart rate. She presented for cataract surgery at [facility]. They dilated her eye and then found
her heart rate was low. They referred her to the emergency department for full evaluation. She is not taking any of her medications this morning. This includes apixaban, diltiazem, sotalol, and digoxin. She reports stable heart rate when she had
her other eye procedure last week. She endorses poor oral intake for the past 6 weeks. No nausea/vomiting/diarrhea just no desire to eat.
She had a recent admission in August where she was found to be hypoxic. She was positive for influenza A. She was started on digoxin during that hospitalization. Her sotalol was briefly held for a prolonged QTc which normalized prior to
discharge.
Past Medical History
Past Medical History: Arrhythmias (Persistent atrial fibrillation), Asthma, CHF, COPD, HTN, Renal Failure (CKD) and Other (DIEGO [CPAP intolerant])
Past Surgical History: Appendectomy, Gynecological, Orthopedic, Tonsilectomy and Other (Gastric bypass)
Social History
Tobacco: Former Smoker
Alcohol: None
Drug: None
Living: With Family
Family History
Family History: Early CAD (father CAD 53 )
Allergies / Home Medications
Allergy/AdvReac Type Severity Reaction Status Date / Time
bupropion [From Wellbutrin] Allergy Rash Verified 10/09/24 08:27
iron [From Venofer] Allergy FELL ILL Verified 10/09/24 08:27
REQUIRING
HOSPITALIZATION
celecoxib AdvReac Nausea Verified 10/09/24 08:27
Influenza Virus Vaccines AdvReac Vomiting Verified 10/09/24 08:27
x3 days
�Medication �Instructions �Recorded �Confirmed �Type
dapagliflozin propanediol 10 mg 10 mg PO DAILY Diabetes 06/12/23 07/31/24 History
tablet (Farxiga)
esomeprazole magnesium 40 mg 40 mg PO DAILY GERD 06/12/23 07/31/24 History
capsule,delayed release (Nexium)
levalbuterol tartrate 45 1 puff inhalation R Q6HPRN PRN sob 06/12/23 07/31/24 History
mcg/actuation aerosol inhaler
(Xopenex HFA)
budesonide 0.5 mg/2 mL suspension 0.5 mg inhalation R BID 11/09/23 07/31/24 History
for nebulization Lung/Breathing Issues
furosemide 40 mg tablet 40 mg PO DAILY Fluid 11/09/23 07/31/24 History
Retention/Swelling
levalbuterol HCl 0.63 mg/3 mL 0.63 mg inhalation R BID 11/09/23 07/31/24 History
solution for nebulization Lung/Breathing Issues
cholecalciferol (vitamin D3) 25 25 mcg PO DAILY Supplement 01/10/24 07/31/24 History
mcg (1,000 unit) tablet (Vitamin
D3)
sotalol 80 mg tablet 40 mg PO BID Arrhythmia 01/10/24 07/31/24 History
apixaban 2.5 mg tablet (Eliquis) 2.5 mg PO BID Blood Clot 07/31/24 07/31/24 History
Prevention/Tx
diltiazem HCl 180 mg capsule,24 180 mg PO DAILY 07/31/24 History
hr,extended release
fluticasone furoate 200 1 inh inhalation R DAILY 07/31/24 07/31/24 History
mcg-vilanterol 25 mcg/dose Lung/Breathing Issues
inhalation powder (Breo Ellipta)
folic acid 1 mg tablet 1 mg PO DAILY Supplement 07/31/24 History
hydrocodone 5 mg-acetaminophen 325 1 tab PO Q6HPRN PRN severe Pain 07/31/24 07/31/24 History
mg tablet
methotrexate sodium 2.5 mg tablet 0 mg PO QWEEK 07/31/24 History
potassium chloride 20 mEq 20 meq PO DAILY Electrolyte 07/31/24 History
tablet,extended release Repletion
prednisone 10 mg tablet 10 mg PO BID Anti-Inflammatory 07/31/24 History
digoxin 250 mcg (0.25 mg) tablet 250 mcg PO NOON #30 tabs 08/04/24 Rx
guaifenesin 600 mg tablet, 600 mg PO Q12 #10 tabs 08/04/24 Rx
extended release 12 hr
oseltamivir 30 mg capsule 30 mg PO BID #1 cap 08/04/24 Rx
pantoprazole 40 mg tablet,delayed 40 mg PO DAILY #30 tabs 08/04/24 Rx
release
prednisone 10 mg tablet See Taper PO DAILY #27 tabs 08/04/24 Rx
Review of Systems
-
History Source: Patient
All other systems: Negative unless noted
Constitutional: Fatigue
EENT: No Symptoms
Respiratory: No Symptoms
Cardiac: No Symptoms
Abdomen/GI: Other (poor oral intake)
: No Symptoms
Musculoskeletal: No Symptoms
Skin: No Symptoms
Neurological: No Symptoms
Endocrine: No Symptoms
Hematologic/Lymphatic: No Symptoms
Physical Exam
Vital Signs
Temp Pulse Resp BP Pulse Ox
98.4 F 35 16 96/57 99
10/09/24 08:22 10/09/24 10:30 10/09/24 10:30 10/09/24 10:30 10/09/24 10:01
Lab Results
10/09/24 09:03
10/09/24 09:03
Physical Exam
General: Well Developed, Well Nourished, No Apparent Distress and Comfortable
HEENT: Normocephalic, Anicteric and Moist Mucous Membranes
Respiratory: Clear and Non Labored Respirations
Cardiac: S1/S2 and Irregular Rhythm; Negative Peripheral Edema
Breast: Deferred by me
GI: Soft, Non Tender, Non Distended and Normal Bowel Sounds
Rectal: Deferred by Provider
Genito-urinary: No Costovertebral Tender
Musculoskeletal: No Clubbing, No Cyanosis and No Edema
Skin: Warm
Neuro: AO x 3
Hematologic/Lymphatic: No Lymphadenopathy
Psych: Calm
Impression / Plan
-
I/P: 84F with chronic HFpEF, HTN, PAC's, persistent atrial fibrillation (on sotalol/diltiazem/digoxin, s/p ablation of atrial fibrillation and atypical flutter 10/2022), prior PE 03/2021, former tobacco use, gastric bypass surgery, & COPD (managed by
Dr. Torres), and DIEGO (CPAP intolerant), who presents to the ER with a low heart rate.
Primary endorsement clerk: Dr. Griggs
Atrial fibrillation with slow ventricular response
Persistent atrial fibrillation
-Hold sotalol, diltiazem, and digoxin
-Digoxin was initiated in August, after admission with influenza and challenging rate control
-Significant pauses and bradycardia in ER, Digibind x 1 vial (40 mg)
-Follow telemetry
-Ablation included, PVI, PWI and Z line
-CHADS2 Vasc score of 5, apixaban 5 mg BID
Hypertension, BP soft, agents on hold, monitor
HFpEF, chronic
-She does not appear volume overloaded
-Hold furosemide and Farxiga today, reassess for reinitiation tomorrow
COPD, chronic, no acute exacerbation
DIEGO, CPAP intolerant
Prior PE, on apixaban
Data Reviewed
-
EKG: Report Reviewed by me
Medical Tests (Nuc Med, Echo etc): Report Reviewed by me
Labs: Labs Reviewed by me
Old Records: Reviewed
[2024-10-09] MEDS: NSS 1000 IV (11:16)
--- NOTE | 2024-10-09 11:21 | HPS.HSE ---
Family Physician
-
Family Physician: Matthias Montgomery
Chief Complaint
-
Asymptomatic bradycardia
History of Present Illness
Ms. Wisdom is an 84-year-old female with a medical history of A-fib (on sotalol, digoxin, diltiazem, and Eliquis), HFpEF, hypertension, COPD, DIEGO, gastric bypass surgery who presented with asymptomatic bradycardia. She was at the outpatient
surgical center for planned cataract surgery when she was found to have a heart rate in the 30s to 40s. Surgery was aborted and she was sent to the ED for further evaluation. Of note, her right eye was dilated prior to surgery being aborted. She
reports feeling fatigued for the past few weeks and has been experiencing decreased appetite with very poor p.o. intake.
In the ED, heart rate remained in the 30s to 40s and her systolic blood pressure ranged between 90 and 110. Her sotalol and diltiazem were held, her digoxin was discontinued, and she was given a dose of Digibind. She has been admitted to IVU for
further evaluation and management.
Medical History
Past Medical History
Past Medical History: Reports Arrhythmia (A-fib), CHF, COPD, HTN and Other (DIEGO)
Past Surgical History: Reports Appendectomy, Bowel Resection (Gastric bypass), Gynocological and Orthopedic
Social History
Tobacco: Former Smoker
Alcohol: None
Drug: None
Living: With Family
Family History
Family History: Not pertinent
Allergies / Home Medications
Allergies reflects when Allergies were last updated in [facility].
Home Medications with original date entered in [facility]
Allergy/Medication List:
Allergies
Allergy/AdvReac Type Severity Reaction Status Date / Time
bupropion [From Wellbutrin] Allergy Rash Verified 10/09/24 08:27
iron [From Venofer] Allergy FELL ILL Verified 10/09/24 08:27
REQUIRING
HOSPITALIZATION
celecoxib AdvReac Nausea Verified 10/09/24 08:27
Influenza Virus Vaccines AdvReac Vomiting Verified 10/09/24 08:27
x3 days
Home Medications
esomeprazole magnesium 40 mg capsule,delayed release (Nexium) 40 mg PO DAILY GERD 06/12/23
cholecalciferol (vitamin D3) 25 mcg (1,000 unit) tablet (Vitamin D3) 25 mcg PO DAILY Supplement 01/10/24
sotalol 80 mg tablet 40 mg PO BID Arrhythmia 01/10/24
apixaban 2.5 mg tablet (Eliquis) 2.5 mg PO BID Blood Clot Prevention/Tx 07/31/24
fluticasone furoate 200 mcg-vilanterol 25 mcg/dose inhalation powder (Breo Ellipta) 1 inh inhalation R DAILY Lung/Breathing Issues 07/31/24
folic acid 1 mg tablet 1 mg PO DAILY Supplement 07/31/24
potassium chloride 20 mEq tablet,extended release 20 meq PO DAILY Electrolyte Repletion 07/31/24
acetaminophen 500 mg tablet 1,000 mg PO Q6HPRN PRN mild pain 10/09/24
calcium carbonate 500 mg PO TIDPRN PRN heart burn 10/09/24
digoxin 250 mcg (0.25 mg) tablet 250 mcg PO DAILY 10/09/24
fluoxetine 20 mg capsule 20 mg PO DAILY 10/09/24
furosemide 80 mg tablet 40 mg PO MOWEFR 10/09/24
levalbuterol tartrate 45 mcg/actuation aerosol inhaler (Xopenex HFA) 2 inh inhalation R Q6HPRN PRN sob 10/09/24
trazodone 50 mg tablet 50 mg PO DAILYPRN PRN sleep 10/09/24
Review of Systems
-
History Source: Patient
A 12 point ROS was completed and negative except as noted: Yes
Constitutional: Reports Fatigue
Physical Exam
Vital Signs
Vital Signs
Temp Pulse Resp BP Pulse Ox
98.4 F 44 15 100/47 99
10/09/24 08:22 10/09/24 11:17 10/09/24 11:17 10/09/24 11:17 10/09/24 10:01
Physical Exam
General: No Apparent Distress
Laboratory Results
-
10/09/24 09:03
10/09/24 09:03
Laboratory Results
Total Bilirubin 0.7 mg/dl (0.2-1.3) 10/09/24 09:03
AST 25 U/L (14-36) 10/09/24 09:03
ALT 11 U/L (0-35) 10/09/24 09:03
Alkaline Phosphatase 85 U/L (38-126) 10/09/24 09:03
Impression/Plan
-
Gen-AAOx3, NAD
HEENT-NC, AT, anicteric, clear oral mm
Neck-supple
CV-regular rhythm, bradycardic with heart rate around 40, no M, +S1/S2
Lungs-clear B/L
Abd-soft, NT, ND
Musculoskeletal-no edema, no deformity
Skin-warm and dry
Neuro-grossly non-focal
Psych-calm, cooperative
Ms. Wisdom is an 84-year-old female with a medical history of A-fib (on sotalol, digoxin, diltiazem, and Eliquis), HFpEF, hypertension, COPD, DIEGO, gastric bypass surgery who presented with asymptomatic bradycardia. She was at the outpatient
surgical center for planned cataract surgery when she was found to have a heart rate in the 30s to 40s. Surgery was aborted and she was sent to the ED for further evaluation. Of note, her right eye was dilated prior to surgery being aborted. She
reports feeling fatigued for the past few weeks and has been experiencing decreased appetite with very poor p.o. intake. In the ED, heart rate remained in the 30s to 40s and her systolic blood pressure ranged between 90 and 110. Her sotalol and
diltiazem were held, her digoxin was discontinued, and she was given a dose of Digibind. She has been admitted to IVU for further evaluation and management.
Bradycardia:
-Patient is relatively asymptomatic, complains of generalized weakness and fatigue
-Was found to be bradycardic at the outpatient surgical center this morning for planned right cataract surgery, which was aborted after pupil was dilated
-Holding home digoxin, diltiazem, and sotalol
-1 dose of Digibind was given in the ED
-Continue telemetry monitoring, admit to IVU
-Cardiology following
-No need for pacing at this time although pacer pads are in place if needed
Hypotension:
-Likely secondary to bradycardia
-Given a bolus of resuscitative fluids
-Monitor
A-fib:
-Continue anticoagulation with low-dose Eliquis
-Currently holding sotalol/digoxin/diltiazem due to bradycardia
HFpEF:
-Stable, currently compensated
-Holding beta-zonia due to bradycardia
-Not requiring afterload reduction due to hypotension
-Holding diuretic for now due to hypotension
COPD:
-Stable, no current exacerbation
-Continue maintenance inhalers
CODE STATUS: Full code
[2024-10-09 11:32] LABS: TSH Reflex To Free T4 2.82 uIU/ml (0.47-4.68)
--- NOTE | 2024-10-09 15:23 | PTCARENOTE ---
Pt received from ED. Pt is alert/conversive/pleasant. Feels tired but otherwise asymptomatic. Afib w/ rate in 50s on monitor - occasionally rate drops to low 40s but quickly rebounds. BP stable (106/73). Daughter at bedside - plan of care
discussed.
--- NOTE | 2024-10-09 16:46 | CM ---
spoke to pt in room, she is prev indep, lives alone in an apt with no steps to enter. she denies any dc planning needs. she has a cane, walker and scooter at home to use when needed. plan is for dc to home when medically stable.
[2024-10-09] MEDS: SYMBICORT 160/4.5 MCG INHALER 2 PUFF INH (19:49)
[2024-10-09] MEDS: ELIQUIS 2.5 MG PO (20:01)
[2024-10-10 02:37] VITALS: BMI 24.2
[2024-10-10 02:38] VITALS: BP 124/59
--- NOTE | 2024-10-10 03:24 | PTCARENOTE ---
Rec'd pt at change of shift. Pt AAO*3, VSS, and SR on TELE monitor with occasional [place] PVC's. Pt denies any pain or discomfort, now resting with call willett in reach. Pt resting with call willett in reach. See flowchart and MAR for full pt care
and assessment.
[2024-10-10 03:29] LABS: % Eosinophils 5.2 % (0-6); % Immature Granulocytes 0.4 % (0-0.5); % Lymphocytes 35.7 % (20.5-51.1); % Monocytes 10.1 % (1.7-9.3); % Neutrophils 47.6 % (42.2-75.2); Absolute Basophils 0.1 10^3/uL (0-0.2); Absolute Eosinophils 0.3 10^3/uL (0-0.7); Absolute Lymphocytes 1.8 10^3/uL (1.2-3.4); Absolute Monocytes 0.5 10^3/uL (0.1-0.6); Absolute Neutrophils 2.5 10^3/uL (1.4-6.5); Mean Corp Hgb Conc. 31.4 g/dL (33.0-37.0); Mean Corpuscular Hgb 27.4 pg (27.0-31.0); Mean Corpuscular Volume 87.3 fL (81.0-99.0); Mean Platelet Volume 12.6 fL (7.4-10.4); Nucleated Red Blood Cells % 0 %; Platelet Count 288 10^3/uL (130-400); Red Blood Cell Count 4.01 10^6/uL (4.20-5.40); Red Cell Dist. Width 15.5 % (11.5-14.5); White Blood Cell Count 5.2 10^3/uL (4.8-10.8)
[2024-10-10 03:57] LABS: Blood Urea Nitrogen 17 mg/dl (7-17); Calcium 8.6 mg/dl (8.4-10.2); Carbon Dioxide 29 mmol/L (22-30); Chloride 103 mmol/L (98-107); Estimated Creatinine Clearance 40 ml/min; Glucose 74 mg/dl (70-99); Phosphorus 3.7 mg/dl (2.5-4.5); Potassium 4.2 mmol/L (3.5-5.1); Sodium 137 mmol/L (135-145); eGFR > 60.00
[2024-10-10 07:04] VITALS: BP 132/87
--- NOTE | 2024-10-10 07:56 | W.PN.CD ---
Today's Communication / Plan
-
- NPO after midnight for possible PPM in AM
- Hold cardiac meds at this time.
- Continue Eliquis tonight -hold AM dose in case PPM is needed.
Impression / Plan
-
I/P: 84F with chronic HFpEF, HTN, PAC's, persistent atrial fibrillation (on sotalol/diltiazem/digoxin, s/p ablation of atrial fibrillation and atypical flutter 10/2022), prior PE 03/2021, former tobacco use, gastric bypass surgery, & COPD (managed by
Dr. Torres), and DIEGO (CPAP intolerant), who presents to the ER with a low heart rate.
Primary sustainability officer: Dr. Griggs
Atrial fibrillation with slow ventricular response
Persistent atrial fibrillation
-Hold sotalol, diltiazem, and digoxin
-Digoxin was initiated in August, after admission with influenza and challenging rate control
-Significant pauses and bradycardia in ER, Digibind x 1 vial (40 mg)
-Follow telemetry
-Ablation included, PVI, PWI and Z line
-CHADS2 Vasc score of 5, apixaban 5 mg BID
Bradycardia:
-SSS - recurrent AF is likely due to ooor sinus
-Highly symptomatic with bradycardia
-Patient remains bradycardia despite, Digibind and holding sotalol and Diltiazem
-Observe for another day to washout the medications
-Patient is insisting for a PPM
-If continues to be abby in AM, can proceed with PPM
Hypertension, BP soft, agents on hold, monitor
HFpEF, chronic
-She does not appear volume overloaded
-Continue to hold furosemide and Farxiga today, reassess for reinitiation tomorrow
COPD, chronic, no acute exacerbation
DIEGO, CPAP intolerant
Prior PE, on apixaban
Physical Exam
Vital Signs/Labs
Vital Signs
Temp Pulse Resp BP Pulse Ox
97.2 F 60 16 124/59 100
10/10/24 07:04 10/10/24 07:04 10/10/24 07:04 10/10/24 02:38 10/10/24 07:04
10/09/24 10/10/24 10/11/24
06:59 06:59 06:59
Actual Weight 63.9 kg
10/10/24 02:45
10/10/24 02:45
Magnesium 2.0 mg/dl (1.6-2.3) 10/10/24 02:45
Digoxin 1.9 ng/ml (0.8-2.0) 10/09/24 09:03
Physical Exam
Constitutional: No acute distress and Comfortable
EENT: Anicteric and Moist mucous membranes
Cardiovascular: Pedal edema is absent, JVD pressure is normal and Rhythm/rate is irregular
Respiratory: Respiratory effort normal, Lungs clear to auscul. and Wheeze Absent
GI: Soft, Distention absent, Non tender and Normal bowel sounds
Neuro/Psych: Alert, Oriented and AO x 3
Data Reviewed
-
Date of Service: October 10, 2024
Medical Decision Making: Reviewed Test Results, Independent Historian Assessment, Test Interpretation and Review of Case with other Provider
EKG: Tracing Personally Visualized and interpreted
Echo: Report Reviewed by me
Labs: Labs Reviewed by me
Old Records: Reviewed
[2024-10-10] MEDS: SYMBICORT 160/4.5 MCG INHALER 2 PUFF INH ×2 (08:15→19:09)
[2024-10-10] MEDS: FOLVITE 1 MG PO (09:28)
[2024-10-10] MEDS: ELIQUIS 2.5 MG PO ×2 (09:29→20:25)
[2024-10-10] MEDS: PROZAC 20 MG PO (09:29)
[2024-10-10] MEDS: PROTONIX 40 MG PO (09:29)
[2024-10-10] MEDS: VITAMIN D3 (cholecalciferol) 25 MCG PO (09:29)
[2024-10-10] MEDS: LASIX PO (09:33)
[2024-10-10] MEDS: KCL PO (09:34)
[2024-10-10 11:52] VITALS: BP 110/77
--- NOTE | 2024-10-10 13:59 | W.PN.HOSP.TC ---
Today's Communication/Plan
-
Assessment / Plan
Assessment / Plan
Gen-AAOx3, NAD
HEENT-NC, AT, anicteric, clear oral mm
Neck-supple
CV-mildly bradycardic with heart rate around 55, no M, +S1/S2
Lungs-clear B/L
Abd-soft, NT, ND
Musculoskeletal-no edema, no deformity
Skin-warm and dry
Neuro-grossly non-focal
Psych-calm, cooperative
Ms. Wisdom is an 84-year-old female with a medical history of A-fib (on sotalol, digoxin, diltiazem, and Eliquis), HFpEF, hypertension, COPD, DIEGO, gastric bypass surgery who presented with asymptomatic bradycardia. She was at the outpatient
surgical center for planned cataract surgery when she was found to have a heart rate in the 30s to 40s. Surgery was aborted and she was sent to the ED for further evaluation. Of note, her right eye was dilated prior to surgery being aborted. She
reports feeling fatigued for the past few weeks and has been experiencing decreased appetite with very poor p.o. intake. In the ED, heart rate remained in the 30s to 40s and her systolic blood pressure ranged between 90 and 110. Her sotalol and
diltiazem were held, her digoxin was discontinued, and she was given a dose of Digibind. She has been admitted to IVU for further evaluation and management.
Bradycardia:
-Significantly improved after 1 dose of Digibind yesterday 10/09, patient feels much less fatigued
-Continue holding home digoxin, diltiazem, and sotalol
-Continue telemetry monitoring in IVU
-Cardiology following, tentative plan for PPM placement tomorrow if still bradycardic
-N.p.o. after midnight, hold morning dose of Eliquis tomorrow 10/11 pending procedure
-Electrolytes within normal limits
Hypotension:
-Likely secondary to bradycardia
-Given a bolus of resuscitative fluids
-Improved with heart rate
-Monitor
A-fib:
-Continue anticoagulation with low-dose Eliquis for now, hold morning dose 10/11 pending procedure
-Currently holding sotalol/digoxin/diltiazem due to bradycardia
HFpEF:
-Stable, currently compensated
-Holding beta-zonia due to bradycardia
-Not requiring afterload reduction due to hypotension
-Holding diuretic for now due to hypotension
COPD:
-Stable, no current exacerbation
-Continue maintenance inhalers
CODE STATUS: Full code
Anticipated Discharge: 24 - 48 hours
Subjective/Interval History
-
Date of Service: October 10, 2024
Patient was seen and examined at bedside this morning. Status post 1 dose of Digibind yesterday. Heart rate improved today and patient feeling much less fatigued. Tentatively planning PPM placement tomorrow 10/11.
Objective Data
-
Labs:
Laboratory Results
10/10/24
02:45
WBC 5.2
Hgb 11.0 L
Hct 35.0 L
Plt Count 288
Sodium 137
Potassium 4.2
Chloride 103
Carbon Dioxide 29
BUN 17
Creatinine 0.9
Glucose 74
Calcium 8.6
Vital Signs:
Vital Signs
Temp Pulse Resp BP Pulse Ox
97.5 F 59 18 110/77 97
10/10/24 11:57 10/10/24 11:52 10/10/24 11:57 10/10/24 11:52 10/10/24 11:57
I&O
10/09/24 10/10/24 10/11/24
06:59 06:59 06:59
Intake Total 480 / 480
Balance 480 / 480
Review of Systems
-
History Source: Patient
All other systems: Reviewed and negative
Physical Exam
-
General: No Apparent Distress
[2024-10-10 15:19] VITALS: BP 119/70
--- NOTE | 2024-10-10 18:27 | PTCARENOTE ---
Pt resting in bed for most of the day, c/o fatigue. Telemetry shows atrial fib @50-60's with frequent 2 second pauses. Pt shown pacemaker and activity restrictions explained. Pt states understanding. Pt NPO for possible pacer on 10/11.
[2024-10-10 18:57] VITALS: BP 105/61
[2024-10-10 22:13] VITALS: BP 118/61
--- NOTE | 2024-10-10 23:36 | PTCARENOTE ---
Received patient at change of shift. Afib on the monitor, HR in the 60s. Patient verbalizes understanding of NPO at midnight. No complaints from pt at this time, call willett within reach.
[2024-10-11] VITALS (12 sets, daily range): BP systolic 98–139; BP diastolic 47–76
[2024-10-11 04:59] LABS: % Basophils 0.7 % (0-2); % Eosinophils 4.5 % (0-6); % Immature Granulocytes 0.2 % (0-0.5); % Lymphocytes 32.6 % (20.5-51.1); % Monocytes 8.8 % (1.7-9.3); % Neutrophils 53.2 % (42.2-75.2); Absolute Eosinophils 0.3 10^3/uL (0-0.7); Absolute Lymphocytes 1.8 10^3/uL (1.2-3.4); Absolute Monocytes 0.5 10^3/uL (0.1-0.6); Hematocrit 35.8 % (37.0-47.0); Hemoglobin 11.3 g/dL (12.0-16.0); Mean Corp Hgb Conc. 31.6 g/dL (33.0-37.0); Mean Corpuscular Hgb 27.4 pg (27.0-31.0); Mean Corpuscular Volume 86.9 fL (81.0-99.0); Nucleated Red Blood Cells % 0 %; Platelet Count 305 10^3/uL (130-400); Red Blood Cell Count 4.12 10^6/uL (4.20-5.40); Red Cell Dist. Width 15.4 % (11.5-14.5); White Blood Cell Count 5.6 10^3/uL (4.8-10.8)
[2024-10-11 05:23] LABS: Blood Urea Nitrogen 13 mg/dl (7-17); Calcium 8.6 mg/dl (8.4-10.2); Carbon Dioxide 29 mmol/L (22-30); Chloride 103 mmol/L (98-107); Estimated Creatinine Clearance 45 ml/min; Glucose 78 mg/dl (70-99); Phosphorus 3.1 mg/dl (2.5-4.5); Potassium 3.9 mmol/L (3.5-5.1); Sodium 137 mmol/L (135-145); eGFR > 60.00
[2024-10-11] MEDS: SYMBICORT 160/4.5 MCG INHALER 2 PUFF INH ×2 (07:58→20:18)
[2024-10-11] MEDS: FOLVITE 1 MG PO (08:27)
[2024-10-11] MEDS: KCL PO (08:27)
[2024-10-11] MEDS: PROZAC 20 MG PO (08:27)
[2024-10-11] MEDS: PROTONIX 40 MG PO (08:28)
[2024-10-11] MEDS: VITAMIN D3 (cholecalciferol) 25 MCG PO (08:28)
--- NOTE | 2024-10-11 10:46 | W.PN.CD ---
Today's Communication / Plan
-
- PPM today
- Resume Sotalol 80 g BID post implant.
Impression / Plan
-
I/P: 84F with chronic HFpEF, HTN, PAC's, persistent atrial fibrillation (on sotalol/diltiazem/digoxin, s/p ablation of atrial fibrillation and atypical flutter 10/2022), prior PE 03/2021, former tobacco use, gastric bypass surgery, & COPD (managed by
Dr. Torres), and DIEGO (CPAP intolerant), who presents to the ER with a low heart rate.
Primary label drier: Dr. Griggs
Atrial fibrillation with slow ventricular response
Persistent atrial fibrillation
-Hold sotalol, diltiazem, and digoxin
-Digoxin was initiated in August, after admission with influenza and challenging rate control
-Significant pauses and bradycardia in ER, Digibind x 1 vial (40 mg)
-Follow telemetry
-Ablation included, PVI, PWI and Z line
-CHADS2 Vasc score of 5, apixaban 5 mg BID
Bradycardia:
-SSS - recurrent AF is likely due to poor sinus
-Highly symptomatic with bradycardia
-Patient baseline heart rate has improved but continues to have episodes of bradycardia and reports severe symptoms with bradycardia
- s/p Digibind and holding sotalol and Diltiazem
- Needs Sotalol and Diltiazem nevaeh with her fast RVR noted last month needing to add Digoxin along with high dose dilt and Sotalol.
- Now off all rate controlling agents for over 3 days and normal renal and liver functions - still has bradycardia episodes with symptoms.
- Pt is adament on getting a PPM as she feels she keeps coming back to the hospital with slower heart rates.
- can proceed with PPM
Hypertension, BP soft, agents on hold, monitor
HFpEF, chronic
-She does not appear volume overloaded
-Continue to hold furosemide and Farxiga today, reassess for reinitiation tomorrow
COPD, chronic, no acute exacerbation
DIEGO, CPAP intolerant
Prior PE, on apixaban
Physical Exam
Vital Signs/Labs
Vital Signs
Temp Pulse Resp BP Pulse Ox
97.6 F 55 16 119/57 95
10/11/24 06:56 10/11/24 08:01 10/11/24 08:01 10/11/24 06:57 10/11/24 08:32
10/10/24 10/11/24 10/12/24
06:59 06:59 06:59
Actual Weight 63.9 kg
10/11/24 03:55
10/11/24 03:54
Magnesium 2.0 mg/dl (1.6-2.3) 10/11/24 03:54
Digoxin 1.9 ng/ml (0.8-2.0) 10/09/24 09:03
Physical Exam
Constitutional: No acute distress and Comfortable
EENT: Anicteric and Moist mucous membranes
Cardiovascular: Pedal edema is absent, JVD pressure is normal, Rhythm/rate is irregular and Systolic murmur present
Respiratory: Respiratory effort normal, Lungs clear to auscul. and Wheeze Absent
GI: Soft, Distention absent, Non tender and Normal bowel sounds
Neuro/Psych: Alert, Oriented and AO x 3
Other: Cardiac Device Site
Data Reviewed
-
Date of Service: October 11, 2024
Medical Decision Making: Reviewed Test Results, Independent Historian Assessment, Test Interpretation and Review of Case with other Provider
EKG: Tracing Personally Visualized and interpreted
Echo: Report Reviewed by me
Labs: Labs Reviewed by me
Old Records: Reviewed
--- NOTE | 2024-10-11 11:34 | PTCARENOTE ---
Pt prepped for pacemaker insertion with CHG wipes and taken to EP lab @10:45.
--- NOTE | 2024-10-11 12:40 | ITS.CL.PACE ---
[facility] - Pacemaker Implant
Pacemaker Implant
Procedure Report:
Dual Chamber Pacemaker Placement:
Ms. Wisdom is a very pleasant 84 yrs old woman with h/o chronic HFpEF, HTN, PAC's, persistent atrial fibrillation (on sotalol/diltiazem/digoxin, s/p ablation of atrial fibrillation and atypical flutter 10/2022), prior PE 03/2021, former tobacco use,
gastric bypass surgery, & COPD (managed by Dr. Torres), and DIEGO (CPAP intolerant), who was admitted earlier with rapid ventricular response is diagnosed with Tachy Juancho syndrome. She is recommended for PPM placement.�
Indications: Tachy Juancho syndrome
Date of the Procedure: 10/11/2024
Pre-Operative Diagnosis: Tachy Juancho syndrome
Post-Operative Diagnosis: Tachy Juancho syndrome
Procedure Performed: DUAL CHAMBER PACEMAKER IMPLANTATION
Performing Physician:
Kim Carter MD
Anesthesia:
See anesthesia records
Pre-operative antibiotics:
Ancef
Detailed Description of the Procedure:
The patient was identified using hospital identification and informed consent obtained for the procedure. The risks were explained including, but not limited to: Bleeding, infection, arrhythmia, stroke, vascular/cardiac/lung puncture, surgery,
pacemaker dependency/device malfunction. All questions were answered.
The patient was brought to the electrophysiology laboratory in stable condition in fasting state. Continuous electrocardiographic and hemodynamic monitoring was initiated. The initial rhythm was atrial fibrillation.
A surgical pause and time out was performed immediately prior to the procedure with review of her medical history, recent labs, allergies and medications with site of procedure identified and consent noted in the chart. Antibiotics pre operatively
given. All team members concurred.
The procedure site was meticulously prepared with surgical scrub and allowed to dry with no pooling. Sterile draping was applied to cover the procedure site. The image intensifier was draped with sterile bag and positioned over the patient.
The left infraclavicular region was prepped and draped in the usual sterile fashion. Local anesthesia was administered subcutaneously using 1% lidocaine / Bupivacaine. The left cephalic vein cutdown was attempted. There was no cephalic noted.
Following infiltration with local anesthetic, the axillary vein was accessed using the fluoroscopic guidance using the micro-puncture apparatus. The vascular sheaths were introduced for lead access. The leads were advanced into the right ventricle
and the right atrium.
The right ventricular lead was secured in position with an active fixation technique at the apical septal location.
The atrial lead was deployed to right atrial appendage and anchored with active fixation.�
Cardioversion:
Given patient had been compliant with anticoagulation, a cardioversion was done using 200J shock and sinus rhythm was achieved.
There was excellent sensing, pacing, and impedance from the leads, with no diaphragmatic stimulation at 10 V output.�Bovie cautery, antibiotics, and fluoroscopy were used.
The sheaths were withdrawn, and the thresholds remained acceptable. The leads were secured in position at the venous entry site with 2-0 Ethibond. A pocket was fashioned contiguous to the incision.
A pursestring suture with 2-0 Vicryl was a deployed around the entry of the leads to secure the bleeding.
The electrode terminals were connected to the pulse generator, which was placed into the pocket. The wound was irrigated thoroughly with antibiotic solution. The pacemaker was secured to the underlying fascia with 2-0 Ethibond suture.
The wound was closed in 3 layers using 2-0 V Loc then 2 layers of 4-0 V loc sutures to the dermis. Steri-Strips and Aquacel applied to the wound.
Procedure End:
The procedure was tolerated well.
Estimated Blood loss:
5 cc
Specimens Removed:
No cultures and no specimens were obtained. No intraoperative pathology was identified.
Fluoro time:
5.0min / 8.75mGy
Urine output:
None
Packs / Drains/ Tubes:
None
Instrument / Sponge Count Correct:
Yes
Complications of the Procedure:
None
Condition of Patient at Time of Transfer:
Hemodynamically stable with no neurological or vascular compromise.
Device information:�
Generator: Xanodyne; Model: W1DR01; Serial # [id number]�
Atrial Lead: Medtronic; Model: 5076-45; Serial # [id number]�
Measured data in the right atrium was sensing of 2.3 mV, impedance of 399 ohms and threshold of 0.5 V at 0.4ms.
RV Lead: Medtronic; Model: 5076-52; Serial # [id number]
Measured data in the RV lead was sensing of 7mV, impedance of 703 ohms and threshold of 0.5 V at 0.4ms�
Juancho parameter settings were AAIR <=>DDDR 70-130 bpm. �
����������� Mode Switch: On
����������� Paced AV interval: 180ms
����������� Sensed AV interval: 150 ms.
����������� Rate Adaptive A-V Interval: Off
Output� parameters:
����������������������� Amplitude (V)������������� Pulse Width (ms)������� Sensitivity (mV)
����������� RA: ����� 3.5 ����������������� ����������� 0.4������������������ ����������� 0.3
����������� RV:������ 3.5������������������ ����������� 0.4������������������ ����������� 0.9
Summary:
Successful implantation of MRI compatible dual chamber Medtronic pacemaker
Results/Recommendations:
-Please follow up CXR�
1. Please provide patient with adequate pain control�
Instructions to be given to patient:�
- Please follow up with [facility] at [address] [place] [address] ([phone]) to get your wound checked within 14 days of your discharge.
- Do not wet incision site until after it is evaluated at cardiology clinic. No showers until then. Sponge baths are OK.�
- No swimming until cleared by the cardiology clinic.
- Do not lift left elbow above shoulder, particularly with sudden jerking movements, for 1 month�
- Do not lift anything weighing more than 10 pounds with the left arm for 1 month�
- If you notice any fevers, shortness of breath, lightheadedness, chest pain, or worsening swelling in the wound site, please contact the arrhythmia clinic, contact your hot dipper, or present to the hospital for evaluation.�
Kim Carter MD
Electrophysiology
[2024-10-11] MEDS: TYLENOL 650 MG PO (13:26)
--- NOTE | 2024-10-11 16:57 | W.PN.HOSP.TC ---
Today's Communication/Plan
-
Assessment / Plan
Assessment / Plan
Gen-AAOx3, NAD
HEENT-NC, AT, anicteric, clear oral mm
Neck-supple
CV-regular rhythm, heart rate 70
Lungs-equal expansion, no accessory muscle use
Abd-soft, NT, ND
Musculoskeletal-no edema, no deformity
Skin-warm and dry
Neuro-grossly non-focal
Psych-calm, cooperative
Ms. Wisdom is an 84-year-old female with a medical history of A-fib (on sotalol, digoxin, diltiazem, and Eliquis), HFpEF, hypertension, COPD, DIEGO, gastric bypass surgery who presented with asymptomatic bradycardia. She was at the outpatient
surgical center for planned cataract surgery when she was found to have a heart rate in the 30s to 40s. Surgery was aborted and she was sent to the ED for further evaluation. Of note, her right eye was dilated prior to surgery being aborted. She
reports feeling fatigued for the past few weeks and has been experiencing decreased appetite with very poor p.o. intake. In the ED, heart rate remained in the 30s to 40s and her systolic blood pressure ranged between 90 and 110. Her sotalol and
diltiazem were held, her digoxin was discontinued, and she was given a dose of Digibind. She has been admitted to IVU for further evaluation and management.
Bradycardia:
-Presented with profound fatigue and heart rate 30s to 40s
-Significantly improved after 1 dose of Digibind 10/09, patient feels much less fatigued
-Permanent pacemaker placed today 10/11, patient tolerated procedure well, left arm soreness following procedure, will give pain meds as needed
-Restarted sotalol at increased dose of 80 mg p.o. twice daily
-Continue telemetry monitoring in IVU
-Will follow-up with cardiology regarding further recommendations
Hypotension:
-Likely secondary to bradycardia
-Given a bolus of resuscitative fluids
-Resolved with improvement in heart rate
-Monitor
A-fib:
-Will restart low-dose Eliquis now that she is post pacemaker implantation
-Restarted sotalol at increased dose of 80 mg p.o. twice daily
-Further recommendations per cardiology
HFpEF:
-Stable, currently compensated
-Home beta-zoina restarted after pacemaker implantation
-Not requiring afterload reduction due to hypotension
-Holding diuretic for now due to hypotension
COPD:
-Stable, no current exacerbation
-Continue maintenance inhalers
CODE STATUS: Full code
Anticipated Discharge: Within 24 hours
Subjective/Interval History
-
Date of Service: October 11, 2024
Patient was seen and examined at bedside. For a pacemaker placed today, patient tolerated procedure well. Has significant pain in left shoulder following procedure.
Objective Data
-
Labs:
Laboratory Results
10/11/24 10/11/24
03:54 03:55
WBC 5.6
Hgb 11.3 L
Hct 35.8 L
Plt Count 305
Sodium 137
Potassium 3.9
Chloride 103
Carbon Dioxide 29
BUN 13
Creatinine 0.8
Glucose 78
Calcium 8.6
Vital Signs:
Vital Signs
Temp Pulse Resp BP Pulse Ox
97.6 F 80 20 107/47 98
10/11/24 15:10 10/11/24 15:10 10/11/24 15:10 10/11/24 15:10 10/11/24 15:42
I&O
10/10/24 10/11/24 10/12/24
06:59 06:59 06:59
Intake Total 480 / 480 400 / 400 240 / 240
Balance 480 / 480 400 / 400 240 / 240
Review of Systems
-
History Source: Patient
All other systems: Reviewed and negative
Musculoskeletal: Reports Joint Pain (Left shoulder pain)
Physical Exam
-
General: No Apparent Distress
[2024-10-11] MEDS: ROXICODONE 5 MG PO ×2 (17:13→22:20)
[2024-10-11] MEDS: ANCEF 5 IV (18:01)
--- NOTE | 2024-10-11 19:53 | PTCARENOTE ---
Pt had pacemaker placed in left anterior chest, dressing dry and intact. Pt with 8/10 discomfort in her left shoulder (prior arthroplasty at this site), Pt seen by , discomfort much improved after oxycodone. Pt OOB with assist of one, chest
Xray done in dept. Telemetry shows occasional atrial paced rhythm. No void post procedure yet, will monitor.
[2024-10-11] MEDS: ELIQUIS 2.5 MG PO (20:00)
[2024-10-11] MEDS: NON-FORMULARY ITEM 1 UNIT OPHTH (20:00)
[2024-10-11] MEDS: BETAPACE 80 MG PO (20:00)
--- NOTE | 2024-10-11 23:45 | PTCARENOTE ---
Received patient at change of shift. A paced on the monitor, HR in the 70s. L chest with pressure dressing CDI. L arm immobilizer in place. Pt complained of 7/10 L shoulder pain, PRN pain medication administered as per SEP. Call willett within reach.
[2024-10-12] VITALS (7 sets, daily range): BP systolic 95–132; BP diastolic 56–91
[2024-10-12 00:48] LABS: % Basophils 0.2 % (0-2); % Immature Granulocytes 0.2 % (0-0.5); % Lymphocytes 13.7 % (20.5-51.1); % Monocytes 5.8 % (1.7-9.3); % Neutrophils 80.1 % (42.2-75.2); Absolute Lymphocytes 0.8 10^3/uL (1.2-3.4); Absolute Monocytes 0.3 10^3/uL (0.1-0.6); Absolute Neutrophils 4.4 10^3/uL (1.4-6.5); Hematocrit 30.3 % (37.0-47.0); Hemoglobin 9.5 g/dL (12.0-16.0); Mean Corp Hgb Conc. 31.4 g/dL (33.0-37.0); Mean Corpuscular Hgb 27.4 pg (27.0-31.0); Mean Corpuscular Volume 87.3 fL (81.0-99.0); Mean Platelet Volume 11.9 fL (7.4-10.4); Nucleated Red Blood Cells % 0 %; Platelet Count 248 10^3/uL (130-400); Red Blood Cell Count 3.47 10^6/uL (4.20-5.40); Red Cell Dist. Width 15.5 % (11.5-14.5); White Blood Cell Count 5.5 10^3/uL (4.8-10.8)
[2024-10-12 01:07] LABS: Blood Urea Nitrogen 14 mg/dl (7-17); Calcium 8.6 mg/dl (8.4-10.2); Carbon Dioxide 27 mmol/L (22-30); Chloride 102 mmol/L (98-107); Estimated Creatinine Clearance 52 ml/min; Glucose 137 mg/dl (70-99); Phosphorus 2.6 mg/dl (2.5-4.5); Potassium 4.2 mmol/L (3.5-5.1); Sodium 133 mmol/L (135-145); eGFR > 60.00
--- NOTE | 2024-10-12 01:15 | W.PN.UPDATE ---
Update Note
Progress Note Update
-asked by RN to evaluate tele strips. Pt is mostly a-paced with intrinsic av-conduction; however, has PVCs, couplets and runs upto 14 beats long, which are suspicious for NSVT (regular with av dissociation). Pt is asymptomatic. She got pacer
implanted 10/11 for tachy/abby syndrome and was restarted on Sotalol 80 bid. Nl EF 55-60%. Checked ECG- Qtc is ok 366/395 ms. Checked CXR- leads appear in appropriate positions, mediastinum is stable. Sent am labs - K 4.2, Mg 2.0
-discussed with Dr. Griggs - will continue to monitor
--- NOTE | 2024-10-12 01:21 | PTCARENOTE ---
Patient had 14 beat run of Vtach and an increased amount of PVCs. Pt is asymptomatic. BHAVESH Baker notified. Labs and EKG obtained as per PA. No new orders obtained at this time. Call willett within reach.
[2024-10-12] MEDS: DESYREL 50 MG PO (02:19)
[2024-10-12] MEDS: ANCEF 5 IV (02:19)
[2024-10-12] MEDS: SYMBICORT 160/4.5 MCG INHALER 2 PUFF INH ×2 (07:26→17:51)
[2024-10-12] MEDS: ROXICODONE 5 MG PO ×3 (07:59→17:48)
[2024-10-12] MEDS: FOLVITE 1 MG PO (08:18)
[2024-10-12] MEDS: NON-FORMULARY ITEM 1 UNIT OPHTH ×2 (08:18→20:24)
[2024-10-12] MEDS: ELIQUIS 2.5 MG PO ×2 (08:18→09:27)
[2024-10-12] MEDS: PROZAC 20 MG PO (08:18)
[2024-10-12] MEDS: VITAMIN D3 (cholecalciferol) 25 MCG PO (08:18)
[2024-10-12] MEDS: PROTONIX 40 MG PO (08:18)
[2024-10-12] MEDS: KCL PO (08:19)
--- NOTE | 2024-10-12 09:17 | W.PN.CD ---
Today's Communication / Plan
-
we stopped sotalol, diltiazem, and digoxin (also s/p digibind)
apixaban 5 mg BID
amiodarone 200mg daily
resume lasix and farxiga
we will arrange for follow up with us
please call us with additional questions
Impression / Plan
-
I/P: 84F with chronic HFpEF, HTN, PAC's, persistent atrial fibrillation (on sotalol/diltiazem/digoxin, s/p ablation of atrial fibrillation and atypical flutter 10/2022), prior PE 03/2021, former tobacco use, gastric bypass surgery, & COPD (managed by
Dr. Torres), and DIEGO (CPAP intolerant), who presents to the ER with a low heart rate.
Primary tobacco hanger: Dr. Griggs
Atrial fibrillation with slow ventricular response
Persistent atrial fibrillation, also with NSVT
-EF is normal
-we stopped sotalol, diltiazem, and digoxin (also s/p digibind)
-CHADS2 Vasc score of 5, apixaban 5 mg BID (she was on 2.5mg dose for unclear reasons)
-discussed with EP: now on amiodarone 200mg daily
Bradycardia:
-SSS - recurrent AF is likely due to poor sinus
-Highly symptomatic with bradycardia
-s/p PPM 10/11
Hypertension
-BP low, only on lasix
HFpEF, chronic
-She does not appear volume overloaded
-resume lasix and farxiga
COPD, chronic, no acute exacerbation
DIEGO, CPAP intolerant
Prior PE, on apixaban
Physical Exam
Vital Signs/Labs
Vital Signs
Temp Pulse Resp BP Pulse Ox
98.1 F 70 14 107/58 96
10/12/24 06:59 10/12/24 07:30 10/12/24 07:30 10/12/24 07:00 10/12/24 08:26
10/12/24 00:29
10/12/24 00:29
Magnesium 2.0 mg/dl (1.6-2.3) 10/12/24 00:29
Digoxin 1.9 ng/ml (0.8-2.0) 10/09/24 09:03
Physical Exam
Constitutional: No acute distress and Comfortable
EENT: Moist mucous membranes
Cardiovascular: Rhythm & rate is regular, Pedal edema is absent, JVD pressure is normal and Systolic murmur absent
Respiratory: Respiratory effort normal and Lungs clear to auscul.
Neuro/Psych: AO x 3
Data Reviewed
-
Date of Service: October 12, 2024
EKG: Other (Tele: A paced, runs NSVT)
Labs: Labs Reviewed by me
Total Time Spent with Patient (in minutes): 50 min: discussion with EP, hospitalist team, also PA (see update note)
[2024-10-12] MEDS: KCL 20 MEQ PO (09:25)
[2024-10-12] MEDS: FARXIGA 10 MG PO (09:26)
[2024-10-12] MEDS: LASIX 40 MG PO (09:27)
[2024-10-12] MEDS: PACERONE 400 MG PO (09:28)
--- NOTE | 2024-10-12 12:16 | W.PN.UPDATE ---
Update Note
Progress Note Update
Called by nurse to evaluate patient.
Patient is having midsternal anterior chest heaviness. She describes it as restricting her breathing. No associated symptoms of nausea/diaphoresis.
No hypotension. No hypoxia.
I am unable to worsen the pain with palpation.
Pressure dressing removed without change in discomfort. Old drainage on Aquacel. By palpation, no pocket fullness.
Stat pCXR to rule out pneumothorax. Stat TTE to rule out pericardial effusion.
--- NOTE | 2024-10-12 12:41 | W.PN.UPDATE ---
Update Note
Progress Note Update
Patient assessed for chest discomfort. Focal pain at xiphoid process. Pain worse with inspiration and also when trying to sit up. Chest x-ray on preliminary inspection without clear abnormality. Will await full report. Echocardiogram with
normal left ventricular function and no significant pericardial effusion.Description of symptoms is not consistent with coronary ischemia. Patient with focal discomfort which seems to be an xiphoid process with some worsening with palpation patient
reports that this is right where the binder went across her lower chest and it seemed that the symptoms were normal more notable after the binder was removed. Significant suspicion that symptoms may be musculoskeletal. Pacemaker interrogated and
appears to be functioning appropriately. difficult to entirely exclude pericardial symptoms and patient has recent we postop for pacemaker.
-Will give Tylenol for pain and continue to observe
[2024-10-12] MEDS: TYLENOL 650 MG PO ×2 (14:14→20:23)
[2024-10-12 14:18] LABS: ALT (SGPT) 10 U/L (0-35); AST (SGOT) 23 U/L (14-36); Albumin 2.7 g/dl (3.5-5.0); Alkaline Phosphatase 68 U/L (38-126); Amylase 48 U/L (30-110); Direct Bilirubin 0.1 mg/dl (0.0-0.4); Total Bilirubin 0.2 mg/dl (0.2-1.3); Total Protein 5.1 g/dl (6.3-8.2)
[2024-10-12] MEDS: LIDOCAINE 4% PATCH 1 PATCH TOPICAL (15:58)
[2024-10-12] MEDS: FLEXERIL 5 MG PO (15:59)
--- NOTE | 2024-10-12 17:15 | W.PN.HOSP.TC ---
Today's Communication/Plan
-
Assessment / Plan
Assessment / Plan
Gen-AAOx3, NAD
HEENT-NC, AT, anicteric, clear oral mm
Neck-supple
CV-regular rhythm, heart rate 70
Lungs-equal expansion, no accessory muscle use
Abd-soft, NT, ND
Musculoskeletal-no edema, no deformity
Skin-warm and dry, left anterior chest PPM placement site clean dry intact
Neuro-grossly non-focal
Psych-calm, cooperative
Ms. Wisdom is an 84-year-old female with a medical history of A-fib (on sotalol, digoxin, diltiazem, and Eliquis), HFpEF, hypertension, COPD, DIEGO, gastric bypass surgery who presented with asymptomatic bradycardia. She was at the outpatient
surgical center for planned cataract surgery when she was found to have a heart rate in the 30s to 40s. Surgery was aborted and she was sent to the ED for further evaluation. Of note, her right eye was dilated prior to surgery being aborted. She
reports feeling fatigued for the past few weeks and has been experiencing decreased appetite with very poor p.o. intake. In the ED, heart rate remained in the 30s to 40s and her systolic blood pressure ranged between 90 and 110. Her sotalol and
diltiazem were held, her digoxin was discontinued, and she was given a dose of Digibind. She has been admitted to IVU for further evaluation and management.
Bradycardia:
-Presented with profound fatigue and heart rate 30s to 40s
-Significantly improved after 1 dose of Digibind 10/09, patient feels much less fatigued
-Permanent pacemaker placed 10/11, patient tolerated procedure well, left arm soreness following procedure, will give pain meds as needed
-Restarted sotalol at increased dose of 80 mg p.o. twice daily however developed tachycardia overnight 10/11, sotalol discontinued and started amiodarone 200 mg daily
-Rate currently well-controlled
-Continue telemetry monitoring in IVU
-Will follow-up with cardiology regarding further recommendations
Hypotension:
-Likely secondary to bradycardia
-Given a bolus of resuscitative fluids
-Resolved with improvement in heart rate
-Monitor
A-fib:
-Will restart low-dose Eliquis now that she is post pacemaker implantation
-Amiodarone 200 mg daily started, sotalol discontinued
-Further recommendations per cardiology
HFpEF:
-Stable, currently compensated
-Not requiring afterload reduction due to hypotension
-Restarted home Lasix
COPD:
-Stable, no current exacerbation
-Continue maintenance inhalers
CODE STATUS: Full code
Anticipated Discharge: Within 24 hours
Subjective/Interval History
-
Date of Service: October 12, 2024
Patient was seen and examined at bedside this morning. Comfortable. Had episode of tachycardia overnight, amiodarone was added and sotalol was discontinued. Now rate controlled.
Objective Data
-
Labs:
Laboratory Results
10/12/24 10/12/24
00:29 12:53
Sodium 133 L
Potassium 4.2
Chloride 102
Carbon Dioxide 27
BUN 14
Creatinine 0.7
Glucose 137 H
Calcium 8.6
Total Bilirubin 0.2 Cancelled
AST 23 Cancelled
ALT 10 Cancelled
Alkaline Phosphatase 68 Cancelled
Vital Signs:
Vital Signs
Temp Pulse Resp BP Pulse Ox
97.7 F 70 20 128/91 99
10/12/24 11:59 10/12/24 16:00 10/12/24 11:59 10/12/24 12:11 10/12/24 11:59
I&O
10/11/24 10/12/24 10/13/24
06:59 06:59 06:59
Intake Total 400 / 400 240 / 240 360 / 360
Output Total 800 / 800
Balance 400 / 400 240 / 240 -440 / -440
Review of Systems
-
History Source: Patient
All other systems: Reviewed and negative
Physical Exam
-
General: No Apparent Distress
--- NOTE | 2024-10-12 19:20 | PTCARENOTE ---
Pt doing well in the morning OOB to the chair and bathroom. At noon immobilizer was removed and pt reported 7-8/10 mid chest pain that was worse on inspiration but also constant and 'different'. Pt seen by Zahida Jose, [employer]TER, ECG done and pressure
dressing was removed. Pt also examined by Dr. Calloway. Portable chest xray and bedside ECHO also done,reports seen by . Pt stated the pain was happening in different places across her right chest to the left side. Pt given oxycodone and
tylenol with no relief. Dr. Bob notified of her continuing discomfort, pt given lidocaine patch and flexeril. Pt briefly able to take a nap but stated later that the pain 'was still bad'. notified, morphine ordered.
Telemtry shows mostly atrial paced rhythm.
[2024-10-12] MEDS: ELIQUIS 5 MG PO (20:23)
--- NOTE | 2024-10-12 21:35 | PTCARENOTE ---
Patient received at change of shift asleep in the bed. Upon being woken up for VS the patient reported generalized chest pain/upper abdomen discomfort that was the same pain that she has had throughout the day. PRN acetaminophen given, see MAR.
Atrial paced on telemetry with occasional PVCs. Oxygen saturation on room air 95-96%. Patient denies N/V. Left anterior chest wall aquacell with scant amount of old drainage present. Plan of care discussed. Call willett within reach. Care ongoing.
[2024-10-13] VITALS (8 sets, daily range): BP systolic 90–117; BP diastolic 54–80; BMI 24.2
[2024-10-13] MEDS: TYLENOL 650 MG PO ×2 (04:14→20:00)
[2024-10-13] MEDS: SYMBICORT 160/4.5 MCG INHALER 2 PUFF INH ×2 (07:37→17:55)
--- NOTE | 2024-10-13 07:54 | W.PN.CD ---
Today's Communication / Plan
-
Patient still with chest pain with inspiration. Locations a bit different than yesterday not over the xiphoid process and right costal margin. Worse with positional change may still be musculoskeletal. Overall she says symptoms are improved from
yesterday. However CT report made comment about dilated aorta although report suggest unchanged patient does have symptoms so we will proceed with CT
Follow-up hemoglobin
Hold Eliquis until stability of hemoglobin is assessed and CT results are evaluated
Impression / Plan
-
I/P: 84F with chronic HFpEF, HTN, PAC's, persistent atrial fibrillation (on sotalol/diltiazem/digoxin, s/p ablation of atrial fibrillation and atypical flutter 10/2022), prior PE 03/2021, former tobacco use, gastric bypass surgery, & COPD (managed by
Dr. Torres), and DIEGO (CPAP intolerant), who presents to the ER with a low heart rate.
Primary alligator shear operator: Dr. Griggs
Atrial fibrillation with slow ventricular response
Persistent atrial fibrillation, also with NSVT
-EF is normal
-we stopped sotalol, diltiazem, and digoxin (also s/p digibind)
-CHADS2 Vasc score of 5, apixaban 5 mg BID (she was on 2.5mg dose for unclear reasons)
-As per EP: now on amiodarone 200mg daily
Bradycardia:
-SSS
-s/p PPM 10/11
PPM 10/11 -site fine
.
Chest discomfort. Patient reported chest discomfort yesterday after binder was removed she had 1 binder overnight and it was across her lower chest initially appeared to be more musculoskeletal with some discomfort reproduced at xiphoid process and
right costal margin. Pain mostly with inspiration and when she tried to sit forward felt better when she was laying back or on her side.
- Echocardiogram performed yesterday with normal left ventricular function no pericardial effusion
-Device interrogated yesterday and was functioning appropriately
chest x-ray without pneumothorax
Final report however does show probable dilation of the aortic arch appears unchanged from July but since patient is having some chest discomfort we will plan on CT
-Still with some discomfort with inspiration no longer righted xiphoid process and right costal margin. Some radiation to back worse with sitting forward improved from yesterday may be musculoskeletal but will check follow-up imaging as noted
anemia - decrease
- will check repeat HB
- hold eliqquis
Hypertension
-BP low, only on lasix
HFpEF, chronic
-She does not appear volume overloaded
-resume lasix and farxiga
COPD, chronic, no acute exacerbation
DIEGO, CPAP intolerant
Prior PE, on apixaban
Physical Exam
Vital Signs/Labs
Vital Signs
Temp Pulse Resp BP Pulse Ox
97.8 F 71 15 113/65 97
10/13/24 06:49 10/13/24 07:38 10/13/24 07:38 10/13/24 03:59 10/13/24 07:38
10/12/24 10/13/24 10/14/24
06:59 06:59 06:59
Actual Weight 64 kg
10/12/24 00:29
10/12/24 00:29
Magnesium 2.0 mg/dl (1.6-2.3) 10/12/24 00:29
Digoxin 1.9 ng/ml (0.8-2.0) 10/09/24 09:03
Physical Exam
Constitutional: No acute distress
EENT: Anicteric
Cardiovascular: Rhythm & rate is regular and Other (paceer siteis fine)
Respiratory: Respiratory effort normal
GI: Soft
Neuro/Psych: Alert
Data Reviewed
-
Date of Service: October 13, 2024
Medical Decision Making: Reviewed Test Results
Medical Tests (PFT, Pathology etc): Report Reviewed by me
Labs: Labs Reviewed by me
[2024-10-13 09:23] LABS: Troponin I 0.037 ng/ml
[2024-10-13] MEDS: ELIQUIS PO (09:45)
[2024-10-13] MEDS: PROTONIX 40 MG PO (10:14)
[2024-10-13] MEDS: NON-FORMULARY ITEM 1 UNIT OPHTH ×2 (10:14→20:00)
[2024-10-13] MEDS: FOLVITE 1 MG PO (10:15)
[2024-10-13] MEDS: LIDOCAINE 4% PATCH 1 PATCH TOPICAL (10:15)
[2024-10-13] MEDS: PACERONE 200 MG PO (10:15)
[2024-10-13] MEDS: KCL PO ×2 (10:15→10:20)
[2024-10-13] MEDS: FARXIGA 10 MG PO (10:15)
[2024-10-13] MEDS: PROZAC 20 MG PO (10:16)
[2024-10-13] MEDS: VITAMIN D3 (cholecalciferol) 25 MCG PO (10:16)
[2024-10-13] MEDS: ROXICODONE 5 MG PO (11:12)
[2024-10-13 16:14] LABS: Hematocrit 36.3 % (37.0-47.0); Hemoglobin 11.1 g/dL (12.0-16.0); Mean Corp Hgb Conc. 30.6 g/dL (33.0-37.0); Mean Corpuscular Hgb 26.7 pg (27.0-31.0); Mean Corpuscular Volume 87.5 fL (81.0-99.0); Mean Platelet Volume 11.9 fL (7.4-10.4); Platelet Count 222 10^3/uL (130-400); Red Blood Cell Count 4.15 10^6/uL (4.20-5.40); Red Cell Dist. Width 15.6 % (11.5-14.5); White Blood Cell Count 9.5 10^3/uL (4.8-10.8)
[2024-10-13 16:45] LABS: Troponin I 0.048 ng/ml
--- NOTE | 2024-10-13 17:35 | W.PN.HOSP.TC ---
Today's Communication/Plan
-
Assessment / Plan
Assessment / Plan
Gen-AAOx3, NAD
HEENT-NC, AT, anicteric, clear oral mm
Neck-supple
CV-regular rhythm, heart rate 70
Lungs-equal expansion, no accessory muscle use
Abd-soft, NT, ND
Musculoskeletal-no edema, no deformity, middle and right-sided chest wall TTP
Skin-warm and dry, left anterior chest PPM placement site clean dry intact
Neuro-grossly non-focal
Psych-calm, cooperative
Ms. Wisdom is an 84-year-old female with a medical history of A-fib (on sotalol, digoxin, diltiazem, and Eliquis), HFpEF, hypertension, COPD, DIEGO, gastric bypass surgery who presented with asymptomatic bradycardia. She was at the outpatient
surgical center for planned cataract surgery when she was found to have a heart rate in the 30s to 40s. Surgery was aborted and she was sent to the ED for further evaluation. Of note, her right eye was dilated prior to surgery being aborted. She
reports feeling fatigued for the past few weeks and has been experiencing decreased appetite with very poor p.o. intake. In the ED, heart rate remained in the 30s to 40s and her systolic blood pressure ranged between 90 and 110. Her sotalol and
diltiazem were held, her digoxin was discontinued, and she was given a dose of Digibind. She has been admitted to IVU for further evaluation and management.
Chest discomfort:
-She initially been experiencing discomfort at the site of her PPM, however overnight she reports migrating chest pain over to her right side
-Mid and right chest wall are mildly tender to palpation
-No acute findings on CT angiography
-Will continue to monitor on telemetry
-Appreciate cardiology input
Bradycardia:
-Presented with profound fatigue and heart rate 30s to 40s
-Significantly improved after 1 dose of Digibind 10/09
-Permanent pacemaker placed 10/11, patient tolerated procedure well, left arm soreness following procedure, give pain meds as needed
-Restarted sotalol at increased dose of 80 mg p.o. twice daily however developed tachycardia overnight 10/11, sotalol discontinued and started amiodarone 200 mg daily
-Rate currently well-controlled
-Continue telemetry monitoring in IVU
-Will follow-up with cardiology regarding further recommendations
Hypotension:
-Likely secondary to bradycardia
-Given a bolus of resuscitative fluids
-Improved with resolution of bradycardia
-Monitor
A-fib:
-Will restart low-dose Eliquis pending okay from cardiology
-Amiodarone 200 mg daily started, sotalol discontinued
-Further recommendations per cardiology
HFpEF:
-Stable, currently compensated
-Not requiring afterload reduction due to hypotension
-Holding Lasix for now due to borderline hypotension
COPD:
-Stable, no current exacerbation
-Continue maintenance inhalers
CODE STATUS: Full code
Anticipated Discharge: 24 - 48 hours
Subjective/Interval History
-
Date of Service: October 13, 2024
Patient was seen and examined at bedside this morning. She has been having chest discomfort overnight. CT angiography shows no evidence of dissection. Troponins are mildly elevated.
Objective Data
-
Labs:
Laboratory Results
10/13/24
16:03
WBC 9.5
Hgb 11.1 L
Hct 36.3 L
Plt Count 222
Vital Signs:
Vital Signs
Temp Pulse Resp BP Pulse Ox
98 F 75 16 109/71 93
10/13/24 15:20 10/13/24 15:20 10/13/24 15:20 10/13/24 15:20 10/13/24 15:20
I&O
10/12/24 10/13/24 10/14/24
06:59 06:59 06:59
Intake Total 240 / 240 480 / 480 420 / 420
Output Total 1600 / 1600
Balance 240 / 240 -1120 / -1120 420 / 420
Review of Systems
-
History Source: Patient
All other systems: Reviewed and negative
Cardiac: Reports Chest Pain
Physical Exam
-
General: No Apparent Distress
[2024-10-13] MEDS: COLCHICINE 0.3 MG PO (18:34)
[2024-10-13] MEDS: MOTRIN 600 MG PO (18:34)
[2024-10-13] MEDS: LASIX 40 MG PO (18:34)
--- NOTE | 2024-10-13 21:26 | PTCARENOTE ---
Patient received at change of shift resting in the bed. Patient states her pain is improved today but she did have some mild pain around her PPM incision, PRN acetaminophen administered, see MAR. Sinus rhythm with Atrial pacing on telemetry. PPM
site with aquacell intact, scant amount of old drainage present. Oxygen saturation 92-95% on room air. Plan of care discussed. Call willett within reach. Care ongoing.
[2024-10-14 01:43] VITALS: BMI 24.0
[2024-10-14] MEDS: MOTRIN 400 MG PO ×3 (01:43→13:32)
[2024-10-14 03:16] VITALS: BP 104/62
[2024-10-14 03:43] LABS: % Basophils 0.6 % (0-2); % Eosinophils 2.1 % (0-6); % Immature Granulocytes 0.3 % (0-0.5); % Lymphocytes 19.8 % (20.5-51.1); % Neutrophils 66.2 % (42.2-75.2); Absolute Eosinophils 0.2 10^3/uL (0-0.7); Absolute Lymphocytes 1.4 10^3/uL (1.2-3.4); Absolute Monocytes 0.8 10^3/uL (0.1-0.6); Absolute Neutrophils 4.8 10^3/uL (1.4-6.5); Hematocrit 30.2 % (37.0-47.0); Hemoglobin 9.8 g/dL (12.0-16.0); Mean Corp Hgb Conc. 32.5 g/dL (33.0-37.0); Mean Corpuscular Hgb 26.8 pg (27.0-31.0); Mean Corpuscular Volume 82.7 fL (81.0-99.0); Mean Platelet Volume 11.6 fL (7.4-10.4); Nucleated Red Blood Cells % 0 %; Platelet Count 184 10^3/uL (130-400); Red Blood Cell Count 3.65 10^6/uL (4.20-5.40); Red Cell Dist. Width 15.3 % (11.5-14.5); White Blood Cell Count 7.2 10^3/uL (4.8-10.8)
[2024-10-14 04:06] LABS: Blood Urea Nitrogen 18 mg/dl (7-17); Calcium 8.2 mg/dl (8.4-10.2); Carbon Dioxide 34 mmol/L (22-30); Chloride 101 mmol/L (98-107); Estimated Creatinine Clearance 40 ml/min; Glucose 80 mg/dl (70-99); Magnesium 1.9 mg/dl (1.6-2.3); Phosphorus 3.4 mg/dl (2.5-4.5); Potassium 3.6 mmol/L (3.5-5.1); Sodium 135 mmol/L (135-145); eGFR > 60.00
[2024-10-14 04:22] LABS: Troponin I 0.087 ng/ml
[2024-10-14 07:01] VITALS: BP 130/71
--- NOTE | 2024-10-14 07:06 | W.PN.CD ---
Today's Communication / Plan
-
Patient feels significantly better this morning.
Chest pain improved.
Continue colchicine 0.3 mg twice daily. Lower dosing due to use of amiodarone
Patient received NSAID last night ultimately would prefer just to use colchicine in this patient who is chronically on Eliquis.
Check a.m. labs.
She is on Lasix 40 mg daily rather than outpatient dose of every other day since there was some evidence of effusions and CHF. Reportedly had good diuresis overnight we will continue to monitor renal function and urine output.
-Follow-up echo this morning if no significant effusion will resume Eliquis
Impression / Plan
-
I/P: 84F with chronic HFpEF, HTN, PAC's, persistent atrial fibrillation (on sotalol/diltiazem/digoxin, s/p ablation of atrial fibrillation and atypical flutter 10/2022), prior PE 03/2021, former tobacco use, gastric bypass surgery, & COPD (managed by
Dr. Torres), and DIEGO (CPAP intolerant), who presents to the ER with a low heart rate.
Primary sharepoint trainer: Dr. Griggs
Atrial fibrillation with slow ventricular response
Persistent atrial fibrillation, also with NSVT
-EF is normal
-we stopped sotalol, diltiazem, and digoxin (also s/p digibind)
-CHADS2 Vasc score of 5, apixaban 5 mg BID (she was on 2.5mg dose for unclear reasons)
-As per EP: now on amiodarone 200mg daily
-Anticoagulation held with question of drop in hemoglobin. Drop Naus felt to be spurious value we will double check echo and with if without significant pericardial effusion will resume
Bradycardia:
-SSS
-s/p PPM 10/11
PPM 10/11 -site fine
.
Chest discomfort. Patient reported chest discomfort 10/12/2024 after binder was removed she had 1 binder overnight and it was across her lower chest initially appeared to be more musculoskeletal with some discomfort reproduced at xiphoid process and
right costal margin. Pain mostly with inspiration and when she tried to sit forward felt better when she was laying back or on her side. On the morning of 10/13/2024 patient felt like pain was a bit better but some of this may have been related to
pain meds she had overnight. During the day she continued to have discomfort with inspiration. Considering the description of pain and symptoms post pacemaker suspected component of pericarditis and patient was given colchicine and NSAIDs
-Patient feeling significantly better 10/14/2024.
-Continue colchicine dosing is 0.3 mg twice daily. Lower dosing in this patient who is also on amiodarone
-Patient has received NSAIDs but would prefer to stop NSAIDs prior to discharge and patient who will be on Eliquis
- Echocardiogram 10/12/2024 performed yesterday with normal left ventricular function no pericardial effusion
- Device interrogated 10/12/2024 yesterday and was functioning appropriately
- chest x-ray without pneumothorax question of aortic silhouette so patient had CT with no evidence of aortic dissection there was evidence of pleural effusions and possible CHF
.
HFpEF, chronic
- CT suggested effusions and heart failure. Patient restarted on her Lasix but placed on daily dosing rather than every other day patient apparently had significant urine output last night after restart we will continue to monitor
-resume lasix and farxiga
anemia - decrease in hemoglobin yesterday but follow-up was in an adequate range. Likely spurious low value.
Hypertension
-BP low, only on lasix
HFpEF, chronic
- CT suggested effusions and heart failure. Patient restarted on her Lasix but placed on daily dosing rather than every other day patient apparently had significant urine output last night after restart we will continue to monitor
-resume lasix and farxiga
COPD, chronic, no acute exacerbation
DIEGO, CPAP intolerant
Prior PE, on apixaban
Physical Exam
Vital Signs/Labs
Vital Signs
Temp Pulse Resp BP Pulse Ox
97.6 F 69 20 104/62 94
10/14/24 07:01 10/14/24 05:00 10/14/24 07:01 10/14/24 03:16 10/14/24 07:01
10/13/24 10/14/24 10/15/24
06:59 06:59 06:59
Actual Weight 64 kg 63.5 kg
10/14/24 03:22
10/14/24 03:22
Magnesium 1.9 mg/dl (1.6-2.3) 10/14/24 03:22
Digoxin 1.9 ng/ml (0.8-2.0) 10/09/24 09:03
LAB Results
10/13/24 10/13/24 10/13/24
08:43 16:02 22:15
Troponin I 0.037 H* 0.048 H* D 0.120 H* D
10/14/24
03:22
Troponin I 0.087 H* D
Physical Exam
Constitutional: No acute distress
Cardiovascular: Rhythm & rate is regular
Respiratory: Wheeze Absent and Rhonchi Absent
GI: Soft, Non tender and Normal bowel sounds
Neuro/Psych: Alert
Data Reviewed
-
Date of Service: October 14, 2024
Medical Decision Making: Reviewed Test Results
X-Ray/CT/US/MRI/NUC/PET: Report Reviewed by me
Medical Tests (PFT, Pathology etc): Report Reviewed by me
Labs: Labs Reviewed by me
[2024-10-14] MEDS: SYMBICORT 160/4.5 MCG INHALER 2 PUFF INH ×2 (07:52→19:39)
[2024-10-14] MEDS: PROTONIX 40 MG PO (08:16)
[2024-10-14] MEDS: VITAMIN D3 (cholecalciferol) 25 MCG PO (08:16)
[2024-10-14] MEDS: KCL 20 MEQ PO (08:16)
[2024-10-14] MEDS: FARXIGA 10 MG PO (08:16)
[2024-10-14] MEDS: FOLVITE 1 MG PO (08:17)
[2024-10-14] MEDS: COLCHICINE 0.3 MG PO ×2 (08:17→19:31)
[2024-10-14] MEDS: PACERONE 200 MG PO (08:17)
[2024-10-14] MEDS: NON-FORMULARY ITEM 1 UNIT OPHTH ×2 (08:20→19:31)
[2024-10-14] MEDS: PROZAC 20 MG PO (08:21)
[2024-10-14] MEDS: LIDOCAINE 4% PATCH TOPICAL (09:24)
[2024-10-14 11:12] VITALS: BP 128/70
[2024-10-14] MEDS: TYLENOL 650 MG PO (11:31)
[2024-10-14 15:21] VITALS: BP 136/73
--- NOTE | 2024-10-14 17:23 | W.PN.HOSP.TC ---
Today's Communication/Plan
-
Assessment / Plan
Assessment / Plan
Gen-AAOx3, NAD
HEENT-NC, AT, anicteric, clear oral mm
Neck-supple
CV-regular rhythm, heart rate 70
Lungs-equal expansion, no accessory muscle use
Abd-soft, NT, ND
Musculoskeletal-no edema, no deformity, middle and right-sided chest wall TTP
Skin-warm and dry, left anterior chest PPM placement site clean dry intact
Neuro-grossly non-focal
Psych-calm, cooperative
Ms. Wisdom is an 84-year-old female with a medical history of A-fib (on sotalol, digoxin, diltiazem, and Eliquis), HFpEF, hypertension, COPD, DIEGO, gastric bypass surgery who presented with asymptomatic bradycardia. She was at the outpatient
surgical center for planned cataract surgery when she was found to have a heart rate in the 30s to 40s. Surgery was aborted and she was sent to the ED for further evaluation. Of note, her right eye was dilated prior to surgery being aborted. She
reports feeling fatigued for the past few weeks and has been experiencing decreased appetite with very poor p.o. intake. In the ED, heart rate remained in the 30s to 40s and her systolic blood pressure ranged between 90 and 110. Her sotalol and
diltiazem were held, her digoxin was discontinued, and she was given a dose of Digibind. She has been admitted to IVU for further evaluation and management.
Chest discomfort:
-Possible pericarditis, chest pain improved with addition of low-dose colchicine (using low-dose considering concurrent amiodarone)
-No acute findings on CT angiography
-Repeat echo, restart Eliquis if no significant pericardial effusion
-Appreciate cardiology input
-Anticipate discharge to home tomorrow 10/15 if remains stable
Bradycardia:
-Presented with profound fatigue and heart rate 30s to 40s
-Significantly improved after 1 dose of Digibind 10/09
-Permanent pacemaker placed 10/11, patient tolerated procedure well, left arm soreness following procedure, give pain meds as needed
-Restarted sotalol at increased dose of 80 mg p.o. twice daily however developed tachycardia overnight 10/11, sotalol discontinued and started amiodarone 200 mg daily
-Rate currently well-controlled
-Continue telemetry monitoring in IVU
-Will follow-up with cardiology regarding further recommendations
Hypotension:
-Likely secondary to bradycardia
-Given a bolus of resuscitative fluids
-Improved with resolution of bradycardia
-Monitor
A-fib:
-Restart Eliquis if repeat echo shows no significant pericardial effusion
-Amiodarone 200 mg daily started, sotalol discontinued
-Further recommendations per cardiology
-Off digoxin and diltiazem
HFpEF:
-Stable, currently compensated
-Not requiring afterload reduction
-Restarted Lasix
COPD:
-Stable, no current exacerbation
-Continue maintenance inhalers
CODE STATUS: Full code
Anticipated Discharge: 24 - 48 hours
Subjective/Interval History
-
Date of Service: October 14, 2024
Patient was seen and examined at bedside this morning. Significant improvement in chest discomfort after starting colchicine for possible pericarditis.
Objective Data
-
Vital Signs:
Vital Signs
Temp Pulse Resp BP Pulse Ox
98.4 F 70 16 136/73 95
10/14/24 15:20 10/14/24 15:21 10/14/24 15:20 10/14/24 15:21 10/14/24 15:21
I&O
10/13/24 10/14/24 10/15/24
06:59 06:59 06:59
Intake Total 480 / 480 420 / 420
Output Total 1600 / 1600
Balance -1120 / -1120 420 / 420
Review of Systems
-
History Source: Patient
All other systems: Reviewed and negative
Physical Exam
-
General: No Apparent Distress
[2024-10-14 18:23] VITALS: BP 115/55
[2024-10-14] MEDS: ELIQUIS 5 MG PO (19:31)
--- NOTE | 2024-10-14 20:31 | PTCARENOTE ---
Patient received at change of shift resting in the bed. Offers no complaints at this time. Atrial paced on telemetry. Oxygen saturation 95-96% on room air. Left anterior chest aquacell intact. Plan of care discussed. Call willett within reach. Care
ongoing.
[2024-10-14 22:14] VITALS: BP 134/61
[2024-10-15] VITALS (7 sets, daily range): BP systolic 139–153; BP diastolic 65–88; BMI 23.5
[2024-10-15] MEDS: TYLENOL 650 MG PO ×3 (03:01→22:29)
--- NOTE | 2024-10-15 05:19 | W.PN.HOSP.TC ---
Today's Communication/Plan
-
Resume Eliquis as per Cardio
cont colchicine
Rhythm control
Discharge planning home with home services
Assessment / Plan
Assessment / Plan
Physical Exam
Gen-AAOx3, NAD
HEENT-NC, AT, anicteric, clear oral mm
Neck-supple
CV-regular rhythm, heart rate 70
Lungs-equal expansion, no accessory muscle use
Abd-soft, NT, ND
Musculoskeletal-no edema, no deformity, middle and right-sided chest wall TTP
Skin-warm and dry, left anterior chest PPM placement site clean dry intact
Neuro- AOx3 conversant coherent
Psych-calm, cooperative
Ms. Wisdom is an 84-year-old female with a medical history of A-fib (on sotalol, digoxin, diltiazem, and Eliquis), HFpEF, hypertension, COPD, DIEGO, gastric bypass surgery who presented with asymptomatic bradycardia. She was at the outpatient
surgical center for planned cataract surgery when she was found to have a heart rate in the 30s to 40s. Surgery was aborted and she was sent to the ED for further evaluation. Of note, her right eye was dilated prior to surgery being aborted. She
reports feeling fatigued for the past few weeks and has been experiencing decreased appetite with very poor p.o. intake. In the ED, heart rate remained in the 30s to 40s and her systolic blood pressure ranged between 90 and 110. Her sotalol and
diltiazem were held, her digoxin was discontinued, and she was given a dose of Digibind. She has been admitted to IVU for further evaluation and management.
Chest discomfort:
-Possible pericarditis, chest pain improved with addition of low-dose colchicine (using low-dose considering concurrent amiodarone)
-No acute findings on CT angiography
-repeat ECHO noted no significant change, trivial pericardial effusion
-Appreciate cardiology input
Bradycardia:
-Presented with profound fatigue and heart rate 30s to 40s
-Significantly improved after 1 dose of Digibind 10/09
-Permanent pacemaker placed 10/11
-Restarted sotalol at increased dose of 80 mg p.o. twice daily however developed tachycardia overnight 10/11, sotalol discontinued and started amiodarone 200 mg daily
-Rate currently well-controlled
-Continue telemetry monitoring in IVU
-Cardio eval appreciated
Hypotension:
-Likely secondary to bradycardia
-Given a bolus of resuscitative fluids
-Resolved with resolution of bradycardia
A-fib:
-Eliquis resumed
-Amiodarone 200 mg daily, home sotalol discontinued
-Further recommendations per cardiology
-Off digoxin and diltiazem
HFpEF:
-Stable, currently compensated
-Not requiring afterload reduction
-cont Lasix
COPD:
-Stable, no current exacerbation
-Continue maintenance inhalers
CODE STATUS: Full code
I spent a total of 40 minutes with the patient or on the floor. More than 50% of this time involved counseling and coordination of care.
Anticipated Discharge: Within 24 hours
Subjective/Interval History
-
Date of Service: October 15, 2024
overall report feeling well though notes concern exertional dyspnea.
Objective Data
-
Vital Signs:
Vital Signs
Temp Pulse Resp BP Pulse Ox
98.1 F 70 14 139/83 93
10/15/24 02:57 10/15/24 04:00 10/15/24 02:57 10/15/24 02:58 10/15/24 02:57
I&O
10/13/24 10/14/24 10/15/24
06:59 06:59 06:59
Intake Total 480 / 480 420 / 420
Output Total 1600 / 1600
Balance -1120 / -1120 420 / 420
--- NOTE | 2024-10-15 07:26 | W.PN.CD ---
Today's Communication / Plan
-
- Continue Eliquis and Colchicine
- Colchicine for 4 weeks. If diarrhea develops then dose can be reduced to 0.3mg QD.
- ECHO f/u today
- If unchanged, can be discharged home
Impression / Plan
-
I/P: 84F with chronic HFpEF, HTN, PAC's, persistent atrial fibrillation (on sotalol/diltiazem/digoxin, s/p ablation of atrial fibrillation and atypical flutter 10/2022), prior PE 03/2021, former tobacco use, gastric bypass surgery, & COPD (managed by
Dr. Torres), and DIEGO (CPAP intolerant), who presents to the ER with a low heart rate.
Primary clinical lab scientist: Dr. Griggs
Atrial fibrillation with slow ventricular response
Persistent atrial fibrillation, also with NSVT
-EF is normal
-With slow rates, sotalol, diltiazem, and digoxin (also s/p digibind) were held and underwent PPM 10/11 - MDT
-Sotalol restarted but had NSVT and was switched to Amiodarone.
-CHADS2 Vasc score of 5, apixaban 5 mg BID (she was on 2.5mg dose for unclear reasons)
-As per EP: now on amiodarone 200mg daily
-Eliquis restarted.
-No chest pain - on Colchicine - plan for 4 weeks of Colchicine 0.3 mg BID.
-F/u ECHO today - if no change in effusion then can be discharged home.
Bradycardia:
-SSS
-s/p PPM 10/11
PPM 10/11 -site fine
.
Chest discomfort.
-Possible pericarditis - feeling no pain at this time.
-Atrial paced rhythm,
-Patient feeling significantly better 10/14/2024.
-Continue colchicine dosing is 0.3 mg twice daily. Lower dosing in this patient who is also on amiodarone
-Patient has received NSAIDs but would prefer to stop NSAIDs prior to discharge and patient who will be on Eliquis
- Echocardiogram 10/12/2024 performed yesterday with normal left ventricular function no pericardial effusion
- Device interrogated 10/12/2024 yesterday and was functioning appropriately
- chest x-ray without pneumothorax question of aortic silhouette so patient had CT with no evidence of aortic dissection there was evidence of pleural effusions and possible CHF
- Repeat ECHO today and if unchanged, can be discahrged home.
.
HFpEF, chronic
- CT suggested effusions and heart failure. Patient restarted on her Lasix but placed on daily dosing rather than every other day patient apparently had significant urine output last night after restart we will continue to monitor
-resume lasix and farxiga
anemia - decrease in hemoglobin yesterday but follow-up was in an adequate range. Likely spurious low value.
Hypertension
-BP low, only on lasix
HFpEF, chronic
- CT suggested effusions and heart failure. Patient restarted on her Lasix but placed on daily dosing rather than every other day patient apparently had significant urine output last night after restart we will continue to monitor
-resume lasix and farxiga
COPD, chronic, no acute exacerbation
DIEGO, CPAP intolerant
Prior PE, on apixaban
Physical Exam
Vital Signs/Labs
Vital Signs
Temp Pulse Resp BP Pulse Ox
98.1 F 73 14 139/83 93
10/15/24 02:57 10/15/24 06:00 10/15/24 02:57 10/15/24 02:58 10/15/24 02:57
10/14/24 10/15/24 10/16/24
06:59 06:59 06:59
Actual Weight 63.5 kg 62 kg
10/14/24 03:22
10/14/24 03:22
Magnesium 1.9 mg/dl (1.6-2.3) 10/14/24 03:22
Digoxin 1.9 ng/ml (0.8-2.0) 10/09/24 09:03
LAB Results
10/13/24 10/13/24 10/13/24
08:43 16:02 22:15
Troponin I 0.037 H* 0.048 H* D 0.120 H* D
10/14/24
03:22
Troponin I 0.087 H* D
Physical Exam
Constitutional: No acute distress and Comfortable
EENT: Anicteric and Moist mucous membranes
Cardiovascular: Rhythm & rate is regular, Pedal edema is absent, JVD pressure is normal and Systolic murmur absent
Respiratory: Respiratory effort normal, Lungs clear to auscul., Wheeze Absent and Crackles Absent
GI: Soft, Non tender and Normal bowel sounds
Neuro/Psych: Alert, Oriented and AO x 3
Other: Cardiac Device Site
Data Reviewed
-
Date of Service: October 15, 2024
Medical Decision Making: Reviewed Test Results, Test Interpretation and Review of Case with other Provider
EKG: Tracing Personally Visualized and interpreted
Echo: Report Reviewed by me
Labs: Labs Reviewed by me
Old Records: Reviewed
[2024-10-15] MEDS: PROZAC 20 MG PO (07:45)
[2024-10-15] MEDS: FOLVITE 1 MG PO (07:45)
[2024-10-15] MEDS: PROTONIX 40 MG PO (07:45)
[2024-10-15] MEDS: VITAMIN D3 (cholecalciferol) 25 MCG PO (07:45)
[2024-10-15] MEDS: ELIQUIS 5 MG PO ×2 (07:46→19:54)
[2024-10-15] MEDS: COLCHICINE 0.3 MG PO ×2 (07:46→19:54)
[2024-10-15] MEDS: FARXIGA 10 MG PO (07:46)
[2024-10-15] MEDS: PACERONE 200 MG PO (07:49)
[2024-10-15] MEDS: LIDOCAINE 4% PATCH TOPICAL (07:50)
[2024-10-15] MEDS: KCL 20 MEQ PO (07:53)
[2024-10-15] MEDS: SYMBICORT 160/4.5 MCG INHALER 2 PUFF INH ×2 (08:30→20:15)
[2024-10-15] MEDS: NON-FORMULARY ITEM 1 UNIT OPHTH ×2 (09:05→19:58)
--- NOTE | 2024-10-15 13:39 | CM ---
Chart reviewed. Patient is independent of ADLS, livs alone in a apartment, she uses a SPC, RW and scooter to ambulates. Plan is for the patient to return home with VN. CM to follow
--- NOTE | 2024-10-15 15:11 | PTCARENOTE ---
Pt received this am with no c/o of any pain or sob. OOB with 1 assist to the chair, gait steady. Left pacer site WNL with aqucell dry and intact.
[2024-10-15] MEDS: DESYREL 50 MG PO (22:29)
[2024-10-16 03:38] VITALS: BP 159/71
[2024-10-16 03:46] VITALS: BMI 23.2
--- NOTE | 2024-10-16 05:42 | PTCARENOTE ---
Pt A Paced on monitor. Pt denies SOB. c/o Left shoulder pain, Tylenol PRN given with positive result. OOB with x1 assist
--- NOTE | 2024-10-16 07:30 | W.PN.HOSP.TC ---
Today's Communication/Plan
-
discharge
Assessment / Plan
Assessment / Plan
Physical Exam
Gen-no acute distress, comfortable at rest
HEENT-NC, AT, anicteric, clear oral mm
Neck-supple
CV-regular rhythm no murmur rubs gallops
Lungs-equal expansion, no accessory muscle use, mild bibasilar crackles
Abd-soft, NT, ND
Musculoskeletal-no edema lower ext's
Skin-warm and dry, left anterior chest PPM placement site clean dry intact
Neuro- AOx3 conversant coherent
Psych-calm, cooperative
Ms. Wisdom is an 84-year-old female with a medical history of A-fib (on sotalol, digoxin, diltiazem, and Eliquis), HFpEF, hypertension, COPD, DIEGO, gastric bypass surgery who presented with asymptomatic bradycardia. She was at the outpatient
surgical center for planned cataract surgery when she was found to have a heart rate in the 30s to 40s. Surgery was aborted and she was sent to the ED for further evaluation. Of note, her right eye was dilated prior to surgery being aborted. She
reports feeling fatigued for the past few weeks and has been experiencing decreased appetite with very poor p.o. intake. In the ED, heart rate remained in the 30s to 40s and her systolic blood pressure ranged between 90 and 110. Her sotalol and
diltiazem were held, her digoxin was discontinued, and she was given a dose of Digibind. She has been admitted to IVU for further evaluation and management.
Chest discomfort:
-Possible pericarditis, chest pain improved with addition of low-dose colchicine (using low-dose considering concurrent amiodarone)
-No acute findings on CT angiography
-repeat ECHO noted no significant change, trivial pericardial effusion
-Appreciate cardiology input
Bradycardia:
-Presented with profound fatigue and heart rate 30s to 40s
-Significantly improved after 1 dose of Digibind 10/09
-Permanent pacemaker placed 10/11
-Restarted sotalol at increased dose of 80 mg p.o. twice daily however developed tachycardia overnight 10/11, sotalol discontinued and started amiodarone 200 mg daily
-Rate currently well-controlled
-Continue telemetry monitoring in IVU
-Cardio eval appreciated
Hypotension:
-Likely secondary to bradycardia
-Given a bolus of resuscitative fluids
-Resolved with resolution of bradycardia
A-fib:
-Eliquis resumed
-Amiodarone 200 mg daily, home sotalol discontinued
-Further recommendations per cardiology
-Off digoxin and diltiazem
HFpEF:
-Stable, currently compensated
-cont Lasix, home dose increased to daily as per cardio (previously [facility]).
COPD:
-Stable, no current exacerbation
-Continue maintenance inhalers
CODE STATUS: Full code
Medically stable for discharge home with home services and outpatient follow up recommendations.
Total Time Preparing Discharge __40 minutes including examination of the patient, summary of the hospital stay, instructions for continuing care to all relevant caregivers; and preparation of discharge records, prescriptions, and referral
forms if necessary.
Anticipated Discharge: Today
Subjective/Interval History
-
Date of Service: October 16, 2024
No acute distress resting comfortably in bed. Reports feeling improvement in respiration/sob though exertional dyspnea persists.
Objective Data
-
Vital Signs:
Vital Signs
Temp Pulse Resp BP Pulse Ox
97.9 F 74 17 159/71 94
10/16/24 03:37 10/16/24 06:00 10/16/24 03:37 10/16/24 03:38 10/16/24 03:37
I&O
10/15/24 10/16/24 10/17/24
06:59 06:59 06:59
Intake Total 400 / 400
Balance 400 / 400
[2024-10-16 07:49] VITALS: BP 149/85
[2024-10-16] MEDS: SYMBICORT 160/4.5 MCG INHALER 2 PUFF INH (08:28)
[2024-10-16] MEDS: FOLVITE 1 MG PO (09:00)
[2024-10-16] MEDS: FARXIGA 10 MG PO (09:00)
[2024-10-16] MEDS: ELIQUIS 5 MG PO (09:00)
[2024-10-16] MEDS: KCL 20 MEQ PO (09:00)
[2024-10-16] MEDS: PACERONE 200 MG PO (09:01)
[2024-10-16] MEDS: LASIX 40 MG PO (09:01)
[2024-10-16] MEDS: LIDOCAINE 4% PATCH 1 PATCH TOPICAL (09:01)
[2024-10-16] MEDS: PROZAC 20 MG PO (09:02)
[2024-10-16] MEDS: VITAMIN D3 (cholecalciferol) 25 MCG PO (09:02)
[2024-10-16] MEDS: PROTONIX 40 MG PO (09:02)
[2024-10-16] MEDS: NON-FORMULARY ITEM 1 UNIT OPHTH (09:02)
[2024-10-16] MEDS: COLCHICINE 0.3 MG PO (09:03)
[2024-10-16] MEDS: FLUSH (NSS) 1 FLUSH IV (09:04)
--- NOTE | 2024-10-16 09:17 | W.PN.CD ---
Today's Communication / Plan
-
- Discharge home
Impression / Plan
-
I/P: 84F with chronic HFpEF, HTN, PAC's, persistent atrial fibrillation (on sotalol/diltiazem/digoxin, s/p ablation of atrial fibrillation and atypical flutter 10/2022), prior PE 03/2021, former tobacco use, gastric bypass surgery, & COPD (managed by
Dr. Torres), and DIEGO (CPAP intolerant), who presents to the ER with a low heart rate.
Primary senior ui web developer: Dr. Griggs
Atrial fibrillation with slow ventricular response
Persistent atrial fibrillation, also with NSVT
-EF is normal
-With slow rates, sotalol, diltiazem, and digoxin (also s/p digibind) were held and underwent PPM 10/11 - MDT
-Sotalol restarted but had NSVT and was switched to Amiodarone.
-CHADS2 Vasc score of 5, apixaban 5 mg BID (she was on 2.5mg dose for unclear reasons)
-As per EP: now on amiodarone 200mg daily
-Eliquis restarted.
-No chest pain - on Colchicine - plan for 4 weeks of Colchicine 0.3 mg BID.
-F/u ECHO 10/15/24 - No significant effusion. - can be discharged home.
Bradycardia:
-SSS
-s/p PPM 10/11
PPM 10/11 -site fine
.
Chest discomfort.
-Possible pericarditis - feeling no pain at this time.
-Atrial paced rhythm,
-Patient feeling significantly better 10/14/2024.
-Continue colchicine dosing is 0.3 mg twice daily. Lower dosing in this patient who is also on amiodarone
-Patient has received NSAIDs but would prefer to stop NSAIDs prior to discharge and patient who will be on Eliquis
- Echocardiogram 10/12/2024 performed yesterday with normal left ventricular function no pericardial effusion
- Device interrogated 10/12/2024 yesterday and was functioning appropriately
- chest x-ray without pneumothorax question of aortic silhouette so patient had CT with no evidence of aortic dissection there was evidence of pleural effusions and possible CHF
- Repeat ECHO - unchanged.
.
HFpEF, chronic
- CT suggested effusions and heart failure. Patient restarted on her Lasix but placed on daily dosing rather than every other day patient apparently had significant urine output last night after restart we will continue to monitor
-resume lasix and farxiga
anemia - decrease in hemoglobin yesterday but follow-up was in an adequate range. Likely spurious low value.
Hypertension
-BP low, only on lasix
HFpEF, chronic
- CT suggested effusions and heart failure. Patient restarted on her Lasix but placed on daily dosing rather than every other day patient apparently had significant urine output last night after restart we will continue to monitor
-resume lasix and farxiga
COPD, chronic, no acute exacerbation
DIEGO, CPAP intolerant
Prior PE, on apixaban
Physical Exam
Vital Signs/Labs
Vital Signs
Temp Pulse Resp BP Pulse Ox
98.2 F 71 15 149/85 97
10/16/24 07:47 10/16/24 08:28 10/16/24 08:28 10/16/24 07:49 10/16/24 08:28
10/15/24 10/16/24 10/17/24
06:59 06:59 06:59
Actual Weight 62 kg 61.2 kg
10/14/24 03:22
10/14/24 03:22
Magnesium 1.9 mg/dl (1.6-2.3) 10/14/24 03:22
Digoxin 1.9 ng/ml (0.8-2.0) 10/09/24 09:03
LAB Results
10/13/24 10/13/24 10/13/24
08:43 16:02 22:15
Troponin I 0.037 H* 0.048 H* D 0.120 H* D
10/14/24
03:22
Troponin I 0.087 H* D
Physical Exam
Constitutional: No acute distress and Comfortable
EENT: Anicteric and Moist mucous membranes
Cardiovascular: Rhythm & rate is regular, Pedal edema is absent and JVD pressure is normal
Respiratory: Respiratory effort normal, Lungs clear to auscul. and Wheeze Absent
GI: Soft, Distention absent, Non tender and Normal bowel sounds
Neuro/Psych: Alert, Oriented and AO x 3
Data Reviewed
-
Date of Service: October 16, 2024
Medical Decision Making: Reviewed Test Results, Test Interpretation and Review of Case with other Provider
EKG: Tracing Personally Visualized and interpreted
Echo: Report Reviewed by me
Labs: Labs Reviewed by me
Old Records: Reviewed
--- NOTE | 2024-10-16 09:30 | PTCARENOTE ---
Received patient this morning resting in bed, offers no complaints. Aquacel left upper chest intact with scant amount of old drainage. Patient reluctant to take AM PO lasix and potassium, stating 'I had it yesterday'. Reinforced importance of being
compliant with ordered medications. Call [facility] in reach, await possible discharge later today.
--- NOTE | 2024-10-16 10:01 | CM ---
Reviewed chart. Met with Mrs. Wisdom to review discharge plans. She states she is feeling well and maybe able to go home soon. She states prior to admission she resides alone in an apartment at [facility]. She states she does not have any steps
to enter. She states prior to admission she ambulates with a walker and uses a scooter in the community. She has a walker and scooter at home. She states she has a prescription plan. We reviewed [facility]. She is agreeable to
[facility]. Telephone call to [facility] to inform them of discharge date. She states he daughter will provide transportation home. Medical work-up in progress. The discharge plan is to return home with [facility] when medically stable.
--- NOTE | 2024-10-16 10:37 | W.DCSUMMARY ---
Discharge Summary
Discharge Data
Date of Admission: 10/09/24
Date of Discharge: 10/16/24
-
Pending Results: No
Discharge Plan
-
Patient Disposition: Home with Home Care
Discharge Diagnosis/Procedures: Bradycardia status post Pacemaker implant
Pericarditis
Atrial fibrillation
Heart Failure with Preserved Ejection Fraction
Chronic Obstructive Pulmonary Disease
Condition: Fair
Diet: Low Cholesterol
Activity: As tolerated and With Walker
Driving Restrictions: No driving for 1 week
Bathing Restrictions: OK to Shower
Blood Work: Repeat CBC and BMP with primary care provider in 1 week of discharge.
Others Tests: Repeat Chest X-ray with primary care provider in 1 month of discharge.
Other Services: PT and OT
Activity Restrictions/Additional Instructions:
Please follow up with your primary care provider in 1 week of discharge. Keep your appointment with Cardiology and follow up with Pulmonology in 2-4 weeks of discharge.
Amiodarone has been prescribed in place of sotalol for treatment of atrial fibrillation.
Sotalol was discontinued due to increased NSVT (non-sustained ventricular tachycardia).
Colchicine was prescribed for pericarditis, dose was reduced due to interaction with Amiodarone. Colchicine has been prescribed for 26 days to complete total 4 weeks treatment for pericarditis (two days completed in hospital).
Farxiga has been prescribed for better treatment heart failure.
Home lasix has also been increased to daily instead of tuesday- also fo better treatment heart failure.
Eliquis was increased to 5 mg twice a day for better stroke risk reduction atrial fibrillation. 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
combination with your age would qualify you for reduction in Eliquis dose to 2.5 mg twice a day instead).
Digoxin and diltiazem have been discontinued due to severe bradycardia since resolved. These medications remain unnecessary at this time. Follow up with cardiology or primary care provider before considering to resume.
Please take medications as prescribed/recommended and follow up with primary care provider and/or other healthcare provider involved in your care for refills and/or further adjustment to your medication regimen as necessary.
Stand Alone Forms: DC Inst - Implanted Device
Referrals:
[facility] [Outside] (RN/PT/OT/Aide)
Deny March MD [Active] - in two to four weeks
Matthias Montgomery MD [Family Provider] - in one week
Kim Carter MD [Active] - 10/24/24 2:00 pm (Post device incision check appointment)
Prescriptions:
New
amiodarone 200 mg Tablet
200 mg PO DAILY Qty: 30 0RF
furosemide 40 mg Tablet
40 mg PO DAILY Qty: 30 0RF
Eliquis 5 mg Tablet
5 mg PO BID Qty: 60 0RF
dapagliflozin propanediol 10 mg Tablet
10 mg PO DAILY Qty: 30 0RF
colchicine 0.6 mg Tablet
0.3 mg PO BID 26 Days Qty: 26 0RF
Continued
esomeprazole magnesium [Nexium] 40 mg Capsule,Delayed Release(Dr/Ec)
40 mg PO DAILY
cholecalciferol (vitamin D3) [Vitamin D3] 25 mcg (1,000 unit) Tablet
25 mcg PO DAILY
fluticasone furoate-vilanterol [Breo Ellipta] 200-25 mcg/dose Blister With Device
1 inh INHALATION R DAILY
folic acid 1 mg Tablet
1 mg PO DAILY
potassium chloride 20 mEq Tablet Extended Release
20 meq PO DAILY
trazodone 50 mg Tablet
50 mg PO DAILYPRN PRN (Reason: sleep)
acetaminophen 500 mg Tablet
1,000 mg PO Q6HPRN PRN (Reason: mild pain)
calcium carbonate 500 mg calcium (1,250 mg) Tablet,Chewable
500 mg PO TIDPRN PRN (Reason: heart burn)
fluoxetine 20 mg Capsule
20 mg PO DAILY
levalbuterol tartrate [Xopenex HFA] 45 mcg/actuation Hfa Aerosol Inhaler
2 inh INHALATION R Q6HPRN PRN (Reason: sob)
Discontinued
sotalol 80 mg Tablet
40 mg PO BID
Eliquis 2.5 mg tablet
2.5 mg PO BID
digoxin 250 mcg (0.25 mg) Tablet
250 mcg PO DAILY
furosemide 80 mg Tablet
40 mg PO MOWEFR
Discharge Orders:
Discharge Patient (As Directed); Ordered 10/16/24
Ordered By: Angle Myers
Care Plan Goals
Care Plan Goals:
Problem: Readiness for enhanced knowledge related to diagnosis and treatment plan
Goal: Understand your diagnosis and treatment plan needs, including medications if applicable.
Instructions: Know your diagnosis, underlying causes and treatment plan options, including medications if applicable. Consult with your health care team to learn about your diagnosis and treatment plan, including medications if applicable.
Discharge Date and Time
Print Language: BRITISH
[2024-10-16 11:15] VITALS: BP 148/72
--- NOTE | 2024-10-16 12:02 | PTCARENOTE ---
Reviewed discharge instructions with the patient in detail and she states her understanding. Reinforced new medication changes, follow up appointments including labs and repeat CXR and she states her understanding. Patient aware of need for daily
weights and to notify her physician with any weight loss that could affect her eliquis dosage. Patient discharged home with VN, PT, OT services.
== END 2024-10-16 12:59 | disposition home health service (06) | DRG 243 ==
LOC: IVU 11:31
PROVIDERS: Internal Medicine Cardiovascular Disease; Nurse Practitioner Gerontology; ADMITTING PHYSICIAN Internal Medicine; ATTENDING PHYSICIAN Internal Medicine; CONSULT PHYSICIAN Internal Medicine Cardiovascular Disease; EMERGENCY PHYSICIAN Emergency Medicine; FAMILY PHYSICIAN Family Medicine
PROC: 02HK3JZ Insertion of Pacemaker Lead into Right Ventricle, Percutaneous Approach (ICD-10-PCS; 2024-10-11)
PROC: 02H63JZ Insertion of Pacemaker Lead into Right Atrium, Percutaneous Approach (ICD-10-PCS; 2024-10-11)
PROC: 0JH606Z Insertion of Pacemaker, Dual Chamber into Chest Subcutaneous Tissue and Fascia, Open Approach (ICD-10-PCS; 2024-10-11)
DX: I49.5 Sick sinus syndrome (principal); I13.0 Hypertensive heart and chronic kidney disease with heart failure and stage 1 through stage 4 chronic kidney disease, or unspecified chronic kidney disease; I48.19 Other persistent atrial fibrillation; I50.32 Chronic diastolic (congestive) heart failure; I47.29 Other ventricular tachycardia; I31.9 Disease of pericardium, unspecified; N17.9 Acute kidney failure, unspecified; R00.1 Bradycardia, unspecified; E11.36 Type 2 diabetes mellitus with diabetic cataract; N18.9 Chronic kidney disease, unspecified; E11.22 Type 2 diabetes mellitus with diabetic chronic kidney disease; K21.9 Gastro-esophageal reflux disease without esophagitis; G47.33 Obstructive sleep apnea (adult) (pediatric); K22.70 Barrett's esophagus without dysplasia; I95.9 Hypotension, unspecified; J44.9 Chronic obstructive pulmonary disease, unspecified; R07.89 Other chest pain; D64.9 Anemia, unspecified; Z60.2 Problems related to living alone; Z87.11 Personal history of peptic ulcer disease; Z87.19 Personal history of other diseases of the digestive system; Z87.891 Personal history of nicotine dependence; Z98.84 Bariatric surgery status; Z86.711 Personal history of pulmonary embolism; Z82.49 Family history of ischemic heart disease and other diseases of the circulatory system; Z88.7 Allergy status to serum and vaccine; Z88.8 Allergy status to other drugs, medicaments and biological substances; Z79.51 Long term (current) use of inhaled steroids; Z79.01 Long term (current) use of anticoagulants; Z90.49 Acquired absence of other specified parts of digestive tract; Z90.721 Acquired absence of ovaries, unilateral
CPT/HCPCS: 93308; 33208; 71045; 71275; 80048; 80053; 80162; 82150; 82248; 83735; 84100; 84443; 84484; 85025; 85027; 93005; 94640; 96361; 96374; 99291; C1785; C1892; C1898; J1162; Q9967

== ENCOUNTER 2024-10-31 06:17 | Day surgery (SDC) | payer OTHER, SELFPAY ==
[2024-10-31 10:01] VITALS: BMI 22.5
[2024-10-31 10:02] VITALS: BMI 22.5
[2024-10-31 10:03] VITALS: BP 146/94
[2024-10-31] MEDS: PRED FORTE 1% EYE DROPS 1 DROP OPHTH (10:11)
[2024-10-31] MEDS: ALCAINE 0.5% EYE DROPS 1 DROP OPHTH (10:11)
[2024-10-31] MEDS: POLYTRIM OPHTHALMIC SOLUTION 1 DROP OPHTH (10:11)
[2024-10-31] MEDS: NEO-SYNEPHRINE 2.5% OPH SOL. 1 DROP OPHTH (10:11)
[2024-10-31] MEDS: MYDRIACYL 1 DROP OPHTH (10:12)
[2024-10-31] MEDS: CYCLOGYL 1% EYE DROPS 1 DROP OPHTH (10:12)
[2024-10-31] MEDS: ACUVAIL 10 DROPS OPHTH (10:12)
[2024-10-31] MEDS: NORMOSOL-R/PLASMALYTE-A 1000 IV (10:13)
[2024-10-31] MEDS: AKTEN OPHTHALMIC GEL 1 ML OPHTH (10:13)
[2024-10-31 11:04] VITALS: BP 109/75
== END 2024-10-31 11:30 | disposition home or self-care (01) ==
LOC: SDS 06:17
PROVIDERS: ATTENDING PHYSICIAN Ophthalmology; FAMILY PHYSICIAN Family Medicine
DX: H25.11 Age-related nuclear cataract, right eye (principal)
CPT/HCPCS: 66984